=== PATIENT | female | born 1955 | race Caucasian/White ===

== ENCOUNTER 2019-06-10 12:45 | Outpatient (RCR) | payer MEDICARE, OTHER, SELFPAY ==
--- NOTE | 2019-04-22 17:00 | PT.OIE ---
Current Diagnoses Low back pain (04/22/19) Muscle weakness (generalized) (04/22/19) Rhabdomyolysis (04/22/19) Mixed incontinence (04/22/19) Visit Care Team Role Provider Type Shantell Rodriguez MD Primary Care Provider Physician Specialty: AUTO DAMAGE APPRAISER Address: [address] [place] [address], [id number] Email: [email or web address] Blanca Stoddard Attending Provider Non-Staff Specialty: General Surgery Address: [address] [place] [address], [facility] [address], [place], [address] Email: Physical Therapy Initial Evaluation PT-OP-A Visit Information Start: 04/15/19 08:14 Freq: Status: Active Protocol: Document 04/22/19 12:47 LRN (Rec: 04/22/19 13:43 LRN [id number]) Out-Patient Physical Therapy Visit Information Visit Information Visit Type Initial Evaluation Visit Start Time 12:47 Visit Stop Time 13:43 Total Visit Minutes 56 Visit Number 1 Number of ULTRASOUND SUPERVISOR Visits 0 Evaluation Information Evaluation Date 04/22/19 Precautions Precautions Kidney transplant - 2000. 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 PT-OP-B Current Condition Start: 04/15/19 08:14 Freq: Status: Active Protocol: Document 04/22/19 12:47 LRN (Rec: 04/22/19 13:43 LRN [id number]) Current Condition History of Current Condition Onset Date 5 yrs ago. Current Complaints Having urinary and bowel incontinence. History of Current Condition Urinary leakage with sneezing or coughing or with an urge. Bowel incontinence when stomach is upset and having diarrhea. Urinary leakage with sneezing and can't stop once urine starts to flow. Prior Treatments and Tests Kidney transplant. Taking Cholestryramine for diahrrea a little bit 1x/day. Future Testing and Treatments Planned Rectal surgery. Developmental History Developmental History Bladder surgery 2010 for prolapse, [facility] by Dr. Beltrán. Had no mesh, uterus removed and tucked in the bladder to protect kidney transplant. Has had intermittent diarrhea and constipation since. will have colonoscopy and will follow up with Dr. Stoddard to decide if going to have rectal surgery. Pt [place] 3, Parity 2. Both deliveries with use of forceps and episiotomy. Treatment Goals Patient/Caregiver Goals Pt goal is to improve bowel and urinary continence. Pt goal is to lift rectum to avoid surgery. Prior Functional Status Baseline Function- ADL's Independent Baseline Function- Mobility Independent Baseline Function- Work/School Not working due to incontinence. 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 Current Functional Impairments (Reported) Functional Limitations- ADL's Can't stand a long time. Carrying laundry basket has a little urinary incontinence and prolapse of rectum. Bulging discs limits sitting and gardening. Personal Factors Other Personal Factors That May Effect Per pt report: Therapy/Recovery Lives [place] with spouse. Has had liver transplant with liver located in R lower abdominal quadrant. Bowel dysfunction with intermittent diarrhea onset. 2 bulging discs in lumbar region PT-OP-C Subjective Start: 04/15/19 08:14 Freq: Status: Active Protocol: Document 04/22/19 12:47 LRN (Rec: 04/25/19 08:40 LRN [id number]) Patient Questionnaires Pelvic Pain and Urgency/Frequency Patient Symptom Scale Pelvic Pain Score 23 PT-OP-F Manual Assessment Start: 04/22/19 12:54 Freq: Status: Active Protocol: Document 04/22/19 12:47 LRN (Rec: 04/22/19 18:32 LRN [id number]) Manual Assessments Soft Tissue Assessment Soft Tissue Mobility Assessment Increased tone of Perineal body. PT-OP-I Pelvic Floor Start: 04/22/19 12:54 Freq: Status: Active Protocol: Document 04/22/19 12:47 LRN (Rec: 04/22/19 18:25 LRN [id number]) Pelvic Floor Assessment Urine Pelvic Floor Surgery No Urinary Symptoms Urge Sensation,Prolapse Other Urinary Symptoms Urinary incontinence Leakage Cause Cough,Sneeze,Urge Voiding Frequency 5 Nocturia 4 Urine Pad Type Depends Bowel Bowel Surgery No Bowel Symptoms Constipation,Fecal Leakage, Uncontrolled Flatulence Other Bowel Symptoms Diarrhea Pelvic Clock Pelvic Clock 12-3 Tenderness,Tightness Pelvic Clock 3-6 Tenderness,Tightness Pelvic Clock 6-9 Tenderness Pelvic Clock 9-12 Tenderness Pelvic Clock Other 12-6 O'Clock tender superficially 6-12 O'Clock tender deep. Inter-Rectal Assessment Contraction noted, closure of sphincter. Prolapse Cystocele Grade 1 Rectocele Grade 1 Perineal Descent Resting Present Bearing Present Contraction Ability Voluntary Contraction Weak Manual Muscle Testing Left 1 Manual Muscle Testing Right 1 Manual Muscle Testing Anterior 0 Manual Muscle Testing Posterior 1 Muscle Endurance (Seconds) 1 Comments Pelvic Floor Comments 10 weak Quick contractions felt in the posterior PF region only. PT-OP-J Posture/Palpation/Skin Start: 04/15/19 08:14 Freq: Status: Active Protocol: Document 04/22/19 12:47 LRN (Rec: 04/22/19 18:32 LRN [id number]) Posture Evaluation Position Standing Evaluation View All positions Head/C-Spine Posture Forward Head L-Spine Posture Increased Lordosis Scapula Posture (L) Elevated Pelvis Posture Anteriorly Tilted Weight Distribution Balanced Knee Posture (L) Genu Recurvatum,(R) Genu Recurvatum Palpation Assessment Location Leg length Longsit Palpation Location Equal leg lengths Leg length Supine Palpation Location L leg long Prone ASIS Palpation Location Low Left and outflared Standing ASIS Palpation Location Low Left Standing PSIS Palpation Location Low left PT-OP-K Range of Motion Start: 04/15/19 08:14 Freq: Status: Active Protocol: Document 04/22/19 12:47 LRN (Rec: 04/22/19 18:32 LRN [id number]) Lumbar Spine Range of Motion Lumbar Spine Active Degrees Testing Position Standing Flexion 75 Extension 0 PT-OP-M Strength Start: 04/15/19 08:14 Freq: Status: Active Protocol: Document 04/22/19 12:47 LRN (Rec: 04/22/19 18:32 LRN [id number]) Hip Strength Hip Manual Muscle Testing Right External Rotation 3+ Fair+ Internal Rotation 3 Fair Left External Rotation 3 Fair Internal Rotation 3 Fair PT-OP-Q Treatments Start: 04/15/19 08:14 Freq: Status: Active Protocol: Document 04/22/19 12:47 LRN (Rec: 04/22/19 18:17 LRN [id number]) Self-Care/Home Management Treatment Education Patient Education Home Exercise Program Other Education Pt educated in Bladder Diary to complete and handouts issued. Activities Self-Care/Home Management Activities Issued & reviewed HEP: Kegels: Quick Flicks, Long Holds & Aggravators. PT-OP-T Assessment and Plan Start: 04/15/19 08:14 Freq: Status: Active Protocol: Document 04/22/19 12:47 LRN (Rec: 04/22/19 13:43 LRN [id number]) Physical Therapy Assessment Goals Three Impairment Posterior PF weakness Short Term Goal (STG) Improve [place] Stool Scale more consistently to a 4. STG Duration 06/02/19 Fpc Goal (LTG) Pt will be able to avoid fecal incontinence by improving bowel function and maintaining continence until reaching bathroom. LTG Duration 08/20/19 Two Impairment Anterior PF weakness Short Term Goal (STG) Improve anterior PF strength to 2/5 with pt able to reach the bathroom without leaking. STG Duration 06/02/19 Public Relations Professional Goal (LTG) Improve anterior and lateral wall PF strength to 3/5 with pt able to avoid urinary leaking with a strong cough or sneeze. LTG Duration 08/20/19 One Impairment Lacks independent self care HEP. Public Relations Professional Goal (LTG) Pt will be independent in a self care HEP. Pt goal is to improve bowel and urinary continence. Pt goal is to lift rectum to avoid surgery. LTG Duration 08/20/19 Assessment Summary Assessment Pt presents with signs and symptoms of mixed urinary incontinence and fecal incontinence due to weakness of the PF and soft tissue tightness and tenderness of 12 -6 of the PF clock. In supine she appears to have a grade I cystocele and rectocele. Her symptoms of intermittent diarrhea> constipation cycle is hindering her ability to remain continent. I am hopeful that with PF strengthening and start of a bowel management program her level of fecal incontinence will improve. Additionally, improvement in her bowels will likely help her with her urinary continence. It is expected that due to the chronicity of her condition, her diagnosis of rhabdomyolysis and being s/p kidney transplant, her rehabilitation program may be quite extended. I believe the pt will benefit from skilled physical therapy to improve her urinary and fecal incontinence. The pt may need to be started on therapy 2x/ week to address her soft tissue tightness of the PF and her back pain, but if the pt prefers we can proceed 1x/week on a more self care, progressive home program. Physical Therapy Plan Frequency and Duration Frequency of Treatment 2x/Week Plan of Care Start Date 04/22/19 Plan of Care End Date 08/20/19 Therapeutic Interventions Therapeutic Interventions Home Exercise Program,Joint Mobilizations,Manual Therapy, Neuromuscular Re-education, Patient/Caregiver Education, Self-Care/Home Management,Soft Tissue Mobilization, Therapeutic Exercises Modalities Biofeedback,Cold Pack/Ice Massage,Electric Stimulation, Hot Packs Next Visit Focus/Plan Next Note Type Treatment Note Next Visit Plan Assess hip mobility, core strength. Review Bladder Diary and discuss/make recommendations as appropriate . Initiate proper PF strengthening (in isolation of accessory muscles and for drawing in motion). Assess pt ability to deep breath. Educate pt in stool chart and initiate bowel program. Discuss PF internal work and initiate if pt agreeable. Address proper body mechanics for ADLs.
--- NOTE | 2019-04-22 17:00 | PT.OPPOC ---
Physical, Occupational & Speech Therapy At [facility] Current Diagnoses Low back pain (04/22/19) Muscle weakness (generalized) (04/22/19) Rhabdomyolysis (04/22/19) Mixed incontinence (04/22/19) Visit Care Team Role Provider Type Shantell Rodriguez MD Primary Care Provider Physician Specialty: MANPOWER DEVELOPMENT ADVISOR Address: [address] [place] [address], [address] Email: [email or web address] Blanca Stoddard Attending Provider Non-Staff Specialty: General Surgery Address: [address] [place] [address], [facility] [address], [address] Email: Plan Of Care PT-OP-T Assessment and Plan Start: 04/15/19 08:14 Freq: Status: Active Protocol: Document 04/22/19 12:47 LRN (Rec: 04/22/19 13:43 LRN [id number]) Physical Therapy Assessment Assessment Summary Assessment Pt presents with signs and symptoms of mixed urinary incontinence and fecal incontinence due to weakness of the PF and soft tissue tightness and tenderness of 12 -6 of the PF clock. In supine she appears to have a grade I cystocele and rectocele. Her symptoms of intermittent diarrhea> constipation cycle is hindering her ability to remain continent. I am hopeful that with PF strengthening and start of a bowel management program her level of fecal incontinence will improve. Additionally, improvement in her bowels will likely help her with her urinary continence. It is expected that due to the chronicity of her condition, her diagnosis of rhabdomyolysis and being s/p kidney transplant, her rehabilitation program may be quite extended. I believe the pt will benefit from skilled physical therapy to improve her urinary and fecal incontinence. The pt may need to be started on therapy 2x/ week to address her soft tissue tightness of the PF and her back pain, but if the pt prefers we can proceed 1x/week on a more self care, progressive home program. Physical Therapy Plan Frequency and Duration Frequency of Treatment 2x/Week Plan of Care Start Date 04/22/19 Plan of Care End Date 05/23/20 Therapeutic Interventions Therapeutic Interventions Home Exercise Program,Joint Mobilizations,Manual Therapy, Neuromuscular Re-education, Patient/Caregiver Education, Self-Care/Home Management,Soft Tissue Mobilization, Therapeutic Exercises Modalities Biofeedback,Cold Pack/Ice Massage,Electric Stimulation, Hot Packs Next Visit Focus/Plan Next Note Type Treatment Note Next Visit Plan Assess hip mobility, core strength. Review Bladder Diary and discuss/make recommendations as appropriate . Initiate proper PF strengthening (in isolation of accessory muscles and for drawing in motion). Assess pt ability to deep breath. Educate pt in stool chart and initiate bowel program. Discuss PF internal work and initiate if pt agreeable. Address proper body mechanics for ADLs. Plan of Care Dates Plan of Care Start Date 04/22/19 Plan of Care End Date 08/20/19 Electronically Signed by: Jackie Dahl, PT 04/25/19 0844 Please Sign and Return: I have reviewed this Plan of Care and certify that the skilled therapy services above are required to meet the patient?s needs. Physician Signature Date Printed Name and Credentials Clinical Instructor Signature Printed Name and Credentials
--- NOTE | 2019-04-22 17:00 | PT.OPPOC ---
Physical, Occupational & Speech Therapy At [facility] Current Diagnoses Low back pain (04/22/19) Muscle weakness (generalized) (04/22/19) Rhabdomyolysis (04/22/19) Mixed incontinence (04/22/19) Visit Care Team Role Provider Type Shantell Rodriguez MD Primary Care Provider Physician Specialty: CRISIS NURSE Address: [address] [place] [address], [address] Email: [email or web address] Blanca Stoddard Attending Provider Non-Staff Specialty: General Surgery Address: [address] [place] [address], [address], [address] Email: Plan Of Care PT-OP-T Assessment and Plan Start: 04/15/19 08:14 Freq: Status: Active Protocol: Document 04/22/19 12:47 LRN (Rec: 04/22/19 13:43 LRN [id number]) Physical Therapy Assessment Goals Three Impairment Posterior PF weakness Short Term Goal (STG) Improve [place] Stool Scale more consistently to a 4. STG Duration 06/02/19 Longterm Goal (LTG) Pt will be able to avoid fecal incontinence by improving bowel function and maintaining continence until reaching bathroom. LTG Duration 08/20/19 Two Impairment Anterior PF weakness Short Term Goal (STG) Improve anterior PF strength to 2/5 with pt able to reach the bathroom without leaking. STG Duration 06/02/19 Longterm Goal (LTG) Improve anterior and lateral wall PF strength to 3/5 with pt able to avoid urinary leaking with a strong cough or sneeze. LTG Duration 08/20/19 One Impairment Lacks independent self care HEP. Tank Builder Supervisor Goal (LTG) Pt will be independent in a self care HEP. Pt goal is to improve bowel and urinary continence. Pt goal is to lift rectum to avoid surgery. LTG Duration 08/20/19 Assessment Summary Assessment Pt presents with signs and symptoms of mixed urinary incontinence and fecal incontinence due to weakness of the PF and soft tissue tightness and tenderness of 12 -6 of the PF clock. In supine she appears to have a grade I cystocele and rectocele. Her symptoms of intermittent diarrhea> constipation cycle is hindering her ability to remain continent. I am hopeful that with PF strengthening and start of a bowel management program her level of fecal incontinence will improve. Additionally, improvement in her bowels will likely help her with her urinary continence. It is expected that due to the chronicity of her condition, her diagnosis of rhabdomyolysis and being s/p kidney transplant, her rehabilitation program may be quite extended. I believe the pt will benefit from skilled physical therapy to improve her urinary and fecal incontinence. The pt may need to be started on therapy 2x/ week to address her soft tissue tightness of the PF and her back pain, but if the pt prefers we can proceed 1x/week on a more self care, progressive home program. Physical Therapy Plan Frequency and Duration Frequency of Treatment 2x/Week Plan of Care Start Date 04/22/19 Plan of Care End Date 08/20/19 Therapeutic Interventions Therapeutic Interventions Home Exercise Program,Joint Mobilizations,Manual Therapy, Neuromuscular Re-education, Patient/Caregiver Education, Self-Care/Home Management,Soft Tissue Mobilization, Therapeutic Exercises Modalities Biofeedback,Cold Pack/Ice Massage,Electric Stimulation, Hot Packs Next Visit Focus/Plan Next Note Type Treatment Note Next Visit Plan Assess hip mobility, core strength. Review Bladder Diary and discuss/make recommendations as appropriate . Initiate proper PF strengthening (in isolation of accessory muscles and for drawing in motion). Assess pt ability to deep breath. Educate pt in stool chart and initiate bowel program. Discuss PF internal work and initiate if pt agreeable. Address proper body mechanics for ADLs. Plan of Care Dates Plan of Care Start Date 04/22/19 Plan of Care End Date 08/20/19 Electronically Signed by: Jackie Dahl, PT 04/25/19 1994 Please Sign and Return: I have reviewed this Plan of Care and certify that the skilled therapy services above are required to meet the patient?s needs. Physician Signature Date Printed Name and Credentials Clinical Instructor Signature Printed Name and Credentials
--- NOTE | 2019-04-22 17:00 | PT.OIE ---
Current Diagnoses Low back pain (04/22/19) Muscle weakness (generalized) (04/22/19) Rhabdomyolysis (04/22/19) Mixed incontinence (04/22/19) Visit Care Team Role Provider Type Shantell Rodriguez MD Primary Care Provider Physician Specialty: RECHECKER Address: [address] [place] [address], [id number] Email: [email or web address] Stoddard Attending Provider Non-Staff Specialty: General Surgery Address: [address] [place] [address], [facility] [address], [place], [address] Email: Physical Therapy Initial Evaluation PT-OP-A Visit Information Start: 04/15/19 08:14 Freq: Status: Active Protocol: Document 04/22/19 12:47 LRN (Rec: 04/22/19 13:43 LRN [id number]) Out-Patient Physical Therapy Visit Information Visit Information Visit Type Initial Evaluation Visit Start Time 12:47 Visit Stop Time 13:43 Total Visit Minutes 56 Visit Number 1 Number of WREATH MAKER Visits 0 Evaluation Information Evaluation Date 04/22/19 Precautions Precautions Kidney transplant - 2000. 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 PT-OP-B Current Condition Start: 04/15/19 08:14 Freq: Status: Active Protocol: Document 04/22/19 12:47 LRN (Rec: 04/22/19 13:43 LRN [id number]) Current Condition History of Current Condition Onset Date 5 yrs ago. Current Complaints Having urinary and bowel incontinence. History of Current Condition Urinary leakage with sneezing or coughing or with an urge. Bowel incontinence when stomach is upset and having diarrhea. Urinary leakage with sneezing and can't stop once urine starts to flow. Prior Treatments and Tests Kidney transplant. Taking Cholestryramine for diahrrea a little bit 1x/day. Future Testing and Treatments Planned Rectal surgery. Developmental History Developmental History Bladder surgery 2010 for prolapse, U[facility] by Dr. Beltrán. Had no mesh, uterus removed and tucked in the bladder to protect kidney transplant. Has had intermittent diarrhea and constipation since. will have colonoscopy and will follow up with Dr. Stoddard to decide if going to have rectal surgery. Pt [place] 3, [place] 2. Both deliveries with use of forceps and episiotomy. Treatment Goals Patient/Caregiver Goals Pt goal is to improve bowel and urinary continence. Pt goal is to lift rectum to avoid surgery. Prior Functional Status Baseline Function- ADL's Independent Baseline Function- Mobility Independent Baseline Function- Work/School Not working due to incontinence. 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 Current Functional Impairments (Reported) Functional Limitations- ADL's Can't stand a long time. Carrying laundry basket has a little urinary incontinence and prolapse of rectum. Bulging discs limits sitting and gardening. Personal Factors Other Personal Factors That May Effect Per pt report: Therapy/Recovery Lives [place] with spouse. Has had liver transplant with liver located in R lower abdominal quadrant. Bowel dysfunction with intermittent diarrhea onset. 2 bulging discs in lumbar region PT-OP-C Subjective Start: 04/15/19 08:14 Freq: Status: Active Protocol: Document 04/22/19 12:47 LRN (Rec: 04/25/19 08:40 LRN [id number]) Patient Questionnaires Pelvic Pain and Urgency/Frequency Patient Symptom Scale Pelvic Pain Score 23 PT-OP-F Manual Assessment Start: 04/22/19 12:54 Freq: Status: Active Protocol: Document 04/22/19 12:47 LRN (Rec: 04/22/19 18:32 LRN [id number]) Manual Assessments Soft Tissue Assessment Soft Tissue Mobility Assessment Increased tone of Perineal body. PT-OP-I Pelvic Floor Start: 04/22/19 12:54 Freq: Status: Active Protocol: Document 04/22/19 12:47 LRN (Rec: 04/22/19 18:25 LRN [id number]) Pelvic Floor Assessment Urine Pelvic Floor Surgery No Urinary Symptoms Urge Sensation,Prolapse Other Urinary Symptoms Urinary incontinence Leakage Cause Cough,Sneeze,Urge Voiding Frequency 5 Nocturia 4 Urine Pad Type Depends Bowel Bowel Surgery No Bowel Symptoms Constipation,Fecal Leakage, Uncontrolled Flatulence Other Bowel Symptoms Diarrhea Pelvic Clock Pelvic Clock 12-3 Tenderness,Tightness Pelvic Clock 3-6 Tenderness,Tightness Pelvic Clock 6-9 Tenderness Pelvic Clock 9-12 Tenderness Pelvic Clock Other 12-6 O'Clock tender superficially 6-12 O'Clock tender deep. Inter-Rectal Assessment Contraction noted, closure of sphincter. Prolapse Cystocele Grade 1 Rectocele Grade 1 Perineal Descent Resting Present Bearing Present Contraction Ability Voluntary Contraction Weak Manual Muscle Testing Left 1 Manual Muscle Testing Right 1 Manual Muscle Testing Anterior 0 Manual Muscle Testing Posterior 1 Muscle Endurance (Seconds) 1 Comments Pelvic Floor Comments 10 weak Quick contractions felt in the posterior PF region only. PT-OP-J Posture/Palpation/Skin Start: 04/15/19 08:14 Freq: Status: Active Protocol: Document 04/22/19 12:47 LRN (Rec: 04/22/19 18:32 LRN [id number]) Posture Evaluation Position Standing Evaluation View All positions Head/C-Spine Posture Forward Head L-Spine Posture Increased Lordosis Scapula Posture (L) Elevated Pelvis Posture Anteriorly Tilted Weight Distribution Balanced Knee Posture (L) Genu Recurvatum,(R) Genu Recurvatum Palpation Assessment Location Leg length Longsit Palpation Location Equal leg lengths Leg length Supine Palpation Location L leg long Prone ASIS Palpation Location Low Left and outflared Standing ASIS Palpation Location Low Left Standing PSIS Palpation Location Low left PT-OP-K Range of Motion Start: 04/15/19 08:14 Freq: Status: Active Protocol: Document 04/22/19 12:47 LRN (Rec: 04/22/19 18:32 LRN [id number]) Lumbar Spine Range of Motion Lumbar Spine Active Degrees Testing Position Standing Flexion 75 Extension 0 PT-OP-M Strength Start: 04/15/19 08:14 Freq: Status: Active Protocol: Document 04/22/19 12:47 LRN (Rec: 04/22/19 18:32 LRN [id number]) Hip Strength Hip Manual Muscle Testing Right External Rotation 3+ Fair+ Internal Rotation 3 Fair Left External Rotation 3 Fair Internal Rotation 3 Fair PT-OP-Q Treatments Start: 04/15/19 08:14 Freq: Status: Active Protocol: Document 04/22/19 12:47 LRN (Rec: 04/22/19 18:17 LRN [id number]) Self-Care/Home Management Treatment Education Patient Education Home Exercise Program Other Education Pt educated in Bladder Diary to complete and handouts issued. Activities Self-Care/Home Management Activities Issued & reviewed HEP: Kegels: Quick Flicks, Long Holds & Aggravators. PT-OP-T Assessment and Plan Start: 04/15/19 08:14 Freq: Status: Active Protocol: Document 04/22/19 12:47 LRN (Rec: 04/22/19 13:43 LRN [id number]) Physical Therapy Assessment Assessment Summary Assessment Pt presents with signs and symptoms of mixed urinary incontinence and fecal incontinence due to weakness of the PF and soft tissue tightness and tenderness of 12 -6 of the PF clock. In supine she appears to have a grade I cystocele and rectocele. Her symptoms of intermittent diarrhea> constipation cycle is hindering her ability to remain continent. I am hopeful that with PF strengthening and start of a bowel management program her level of fecal incontinence will improve. Additionally, improvement in her bowels will likely help her with her urinary continence. It is expected that due to the chronicity of her condition, her diagnosis of rhabdomyolysis and being s/p kidney transplant, her rehabilitation program may be quite extended. I believe the pt will benefit from skilled physical therapy to improve her urinary and fecal incontinence. The pt may need to be started on therapy 2x/ week to address her soft tissue tightness of the PF and her back pain, but if the pt prefers we can proceed 1x/week on a more self care, progressive home program. Physical Therapy Plan Frequency and Duration Frequency of Treatment 2x/Week Plan of Care Start Date 04/22/19 Plan of Care End Date 08/20/19 Therapeutic Interventions Therapeutic Interventions Home Exercise Program,Joint Mobilizations,Manual Therapy, Neuromuscular Re-education, Patient/Caregiver Education, Self-Care/Home Management,Soft Tissue Mobilization, Therapeutic Exercises Modalities Biofeedback,Cold Pack/Ice Massage,Electric Stimulation, Hot Packs Next Visit Focus/Plan Next Note Type Treatment Note Next Visit Plan Assess hip mobility, core strength. Review Bladder Diary and discuss/make recommendations as appropriate . Initiate proper PF strengthening (in isolation of accessory muscles and for drawing in motion). Assess pt ability to deep breath. Educate pt in stool chart and initiate bowel program. Discuss PF internal work and initiate if pt agreeable. Address proper body mechanics for ADLs.
--- NOTE | 2019-05-06 13:55 | PT.OTN ---
Current Diagnoses Low back pain (05/06/19) Muscle weakness (generalized) (05/06/19) Rhabdomyolysis (05/06/19) Mixed incontinence (05/06/19) Physical Therapy Treatment Note PT-OP-A Visit Information Start: 04/15/19 08:14 Freq: Status: Active Protocol: Document 05/06/19 12:48 LRN (Rec: 05/06/19 13:55 LRN [id number]) Out-Patient Physical Therapy Visit Information Visit Information Visit Type Treatment Note Visit Start Time 12:47 Visit Stop Time 13:37 Total Visit Minutes 50 Visit Number 2 Evaluation Information Evaluation Date 04/22/19 Precautions Precautions Kidney transplant - 2000. 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 PT-OP-B Current Condition Start: 04/15/19 08:14 Freq: Status: Active Protocol: Document 04/22/19 12:47 LRN (Rec: 04/22/19 13:43 LRN [id number]) Current Condition History of Current Condition Onset Date 5 yrs ago. Current Complaints Having urinary and bowel incontinence. History of Current Condition Urinary leakage with sneezing or coughing or with an urge. Bowel incontinence when stomach is upset and having diarrhea. Urinary leakage with sneezing and can't stop once urine starts to flow. Prior Treatments and Tests Kidney transplant. Taking Cholestryramine for diahrrea a little bit 1x/day. Future Testing and Treatments Planned Rectal surgery. Developmental History Developmental History Bladder surgery 2010 for prolapse, [facility] by Dr. Beltrán. Had no mesh, uterus removed and tucked in the bladder to protect kidney transplant. Has had intermittent diarrhea and constipation since. will have colonoscopy and will follow up with Dr. Stoddard to decide if going to have rectal surgery. Pt [place] 3, [place] 2. Both deliveries with use of forceps and episiotomy. Treatment Goals Patient/Caregiver Goals Pt goal is to improve bowel and urinary continence. Pt goal is to lift rectum to avoid surgery. Prior Functional Status Baseline Function- ADL's Independent Baseline Function- Mobility Independent Baseline Function- Work/School Not working due to incontinence. 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 Current Functional Impairments (Reported) Functional Limitations- ADL's Can't stand a long time. Carrying laundry basket has a little urinary incontinence and prolapse of rectum. Bulging discs limits sitting and gardening. Personal Factors Other Personal Factors That May Effect Per pt report: Therapy/Recovery Lives [place] with spouse. Has had liver transplant with liver located in R lower abdominal quadrant. Bowel dysfunction with intermittent diarrhea onset. 2 bulging discs in lumbar region PT-OP-C Subjective Start: 04/15/19 08:14 Freq: Status: Active Protocol: Document 05/06/19 12:48 LRN (Rec: 05/06/19 13:55 LRN [id number]) OP-PT Subjective Patient Comments Patient Comments No change. Did colonoscopy and found no polyops. PT-OP-F Manual Assessment Start: 04/22/19 12:54 Freq: Status: Active Protocol: Document 04/22/19 12:47 LRN (Rec: 04/22/19 18:32 LRN [id number]) Manual Assessments Soft Tissue Assessment Soft Tissue Mobility Assessment Increased tone of Perineal body. PT-OP-I Pelvic Floor Start: 04/22/19 12:54 Freq: Status: Active Protocol: Document 04/22/19 12:47 LRN (Rec: 04/22/19 18:25 LRN [id number]) Pelvic Floor Assessment Urine Pelvic Floor Surgery No Urinary Symptoms Urge Sensation,Prolapse Other Urinary Symptoms Urinary incontinence Leakage Cause Cough,Sneeze,Urge Voiding Frequency 5 Nocturia 4 Urine Pad Type Depends Bowel Bowel Surgery No Bowel Symptoms Constipation,Fecal Leakage, Uncontrolled Flatulence Other Bowel Symptoms Diarrhea Pelvic Clock Pelvic Clock 12-3 Tenderness,Tightness Pelvic Clock 3-6 Tenderness,Tightness Pelvic Clock 6-9 Tenderness Pelvic Clock 9-12 Tenderness Pelvic Clock Other 12-6 O'Clock tender superficially 6-12 O'Clock tender deep. Inter-Rectal Assessment Contraction noted, closure of sphincter. Prolapse Cystocele Grade 1 Rectocele Grade 1 Perineal Descent Resting Present Bearing Present Contraction Ability Voluntary Contraction Weak Manual Muscle Testing Left 1 Manual Muscle Testing Right 1 Manual Muscle Testing Anterior 0 Manual Muscle Testing Posterior 1 Muscle Endurance (Seconds) 1 Comments Pelvic Floor Comments 10 weak Quick contractions felt in the posterior PF region only. PT-OP-J Posture/Palpation/Skin Start: 04/15/19 08:14 Freq: Status: Active Protocol: Document 04/22/19 12:47 LRN (Rec: 04/22/19 18:32 LRN [id number]) Posture Evaluation Position Standing Evaluation View All positions Head/C-Spine Posture Forward Head L-Spine Posture Increased Lordosis Scapula Posture (L) Elevated Pelvis Posture Anteriorly Tilted Weight Distribution Balanced Knee Posture (L) Genu Recurvatum,(R) Genu Recurvatum Palpation Assessment Location Leg length Longsit Palpation Location Equal leg lengths Leg length Supine Palpation Location L leg long Prone ASIS Palpation Location Low Left and outflared Standing ASIS Palpation Location Low Left Standing PSIS Palpation Location Low left PT-OP-K Range of Motion Start: 04/15/19 08:14 Freq: Status: Active Protocol: Document 05/06/19 12:48 LRN (Rec: 05/06/19 13:55 LRN [id number]) Hip Goniometric Range of Motion Hip Right Passive Testing Position Supine Flexion w/Knee Flexed 122 Straight Leg Raise 80 Abduction 60 Internal Rotation 45 External Rotation 65 Left Passive Testing Position Supine Flexion w/Knee Flexed 125 Straight Leg Raise 85 Abduction 55 Internal Rotation 40 External Rotation 65 PT-OP-M Strength Start: 04/15/19 08:14 Freq: Status: Active Protocol: Document 05/06/19 12:48 LRN (Rec: 05/06/19 13:55 LRN [id number]) Trunk Strength Trunk Manual Muscle Testing Testing Position Sitting Flexion 3+ Fair+ Extension 3+ Fair+ Rotation Left 3 Fair Rotation Right 5 Normal Lateral Flexion Left 2+ Poor+ Lateral Flexion Right 2+ Poor+ PT-OP-Q Treatments Start: 04/15/19 08:14 Freq: Status: Active Protocol: Document 05/06/19 12:48 LRN (Rec: 05/06/19 13:55 LRN [id number]) Therapeutic Exercises Supine Exercises Hip PROM Supine Exercise Name Hip PROM Comments ROM msmts taken after brief stretch of each x 1. Diaphragmatic Breathing Supine Exercise Name Diaphragmatic Breathing Training Reps/Minutes 5' Comments Pt initially with 3 sec inhale /exhale, after practice 3 inhale, 6 exhale. Lateral hip stretch Supine Exercise Name Lateral hip stretch Side bilateral Reps/Minutes 5' Comments Extra time due to training. ~60 stretch each Fig 4 stretch Supine Exercise Name Fig 4 stretch, L > R Side bilateral Reps/Minutes 4' Comments Extra time due to training. ~ 60 stretch each Sitting Exercises Trunk ARROM Sitting Exercise Name Flex, Ext, SB, Rot Comments MMT taken Self-Care/Home Management Treatment Education Patient Education Home Exercise Program Other Education *Reviewed Bladder Diary and made recommendations to increasing water intake especially in the AM, increasing fiber, and decreasing fluids/bladder irriatants before bedtime. *Educated pt in pelvic anatomy and relation of organs in the pelvic cavity. Discussed possible effects organs have on each other. Activities Self-Care/Home Management Activities I/S pt in Deep Breathing to increase inhale to 6 secs. Handouts issued & reviewed for : Pelvic organs in Pelvis, Diaphragmatic Breathing, & Foods to be avoided. PT-OP-T Assessment and Plan Start: 04/15/19 08:14 Freq: Status: Active Protocol: Document 05/06/19 12:48 LRN (Rec: 05/06/19 13:55 LRN [id number]) Physical Therapy Assessment Goals Three Impairment Posterior PF weakness Short Term Goal (STG) Improve [place] Stool Scale more consistently to a 4. STG Duration 06/02/19 Residential Goal (LTG) Pt will be able to avoid fecal incontinence by improving bowel function and maintaining continence until reaching bathroom. LTG Duration 08/20/19 Two Impairment Anterior PF weakness Short Term Goal (STG) Improve anterior PF strength to 2/5 with pt able to reach the bathroom without leaking. STG Duration 06/02/19 Senior Trial Attorney Goal (LTG) Improve anterior and lateral wall PF strength to 3/5 with pt able to avoid urinary leaking with a strong cough or sneeze. LTG Duration 08/20/19 One Impairment Lacks independent self care HEP. Senior Trial Attorney Goal (LTG) Pt will be independent in a self care HEP. Pt goal is to improve bowel and urinary continence. Pt goal is to lift rectum to avoid surgery. LTG Duration 08/20/19 (05/06/19: Initiated) Assessment Summary Assessment Pt with mixed urinary incontinence and fecal incontinence. She did one day of bladder diary. She showed poor fluid intake, as much coffee and soda as water and not enough fluids for her 84#. She has decreased hip mobility of rotators and adductors. SLR is 80-85 deg's with pain in anterior thigh R side (possibly L2, L3 n. root ) and Hamstrings L side. Pt deep breathing is too quick, good movement of abdomen. Physical Therapy Plan Frequency and Duration Frequency of Treatment 2x/Week Plan of Care Start Date 04/22/19 Plan of Care End Date 08/20/19 Next Visit Focus/Plan Next Note Type Treatment Note Next Visit Plan Review Bladder Diary 2nd time and discuss/make recommendations as appropriate . Review deep breathing and I /S home exs of fig 4 & lateral hip stretch. Initiate proper PF strengthening (in isolation of accessory muscles and for drawing in motion). Educate pt in stool chart and initiate bowel program. Discuss PF internal work and initiate if pt agreeable. Address proper body mechanics for ADLs.
--- NOTE | 2019-05-13 16:54 | PT.OTN ---
Current Diagnoses Low back pain (05/13/19) Muscle weakness (generalized) (05/13/19) Rhabdomyolysis (05/13/19) Mixed incontinence (05/13/19) Physical Therapy Treatment Note PT-OP-A Visit Information Start: 04/15/19 08:14 Freq: Status: Active Protocol: Document 05/13/19 12:52 LRN (Rec: 05/13/19 13:34 LRN [id number]) Out-Patient Physical Therapy Visit Information Visit Information Visit Type Treatment Note Visit Start Time 12:53 Visit Stop Time 13:32 Total Visit Minutes 39 Visit Number 3 Evaluation Information Evaluation Date 04/22/19 Precautions Precautions Kidney transplant - 2000. 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 PT-OP-B Current Condition Start: 04/15/19 08:14 Freq: Status: Active Protocol: Document 04/22/19 12:47 LRN (Rec: 04/22/19 13:43 LRN [id number]) Current Condition History of Current Condition Onset Date 5 yrs ago. Current Complaints Having urinary and bowel incontinence. History of Current Condition Urinary leakage with sneezing or coughing or with an urge. Bowel incontinence when stomach is upset and having diarrhea. Urinary leakage with sneezing and can't stop once urine starts to flow. Prior Treatments and Tests Kidney transplant. Taking Cholestryramine for diahrrea a little bit 1x/day. Future Testing and Treatments Planned Rectal surgery. Developmental History Developmental History Bladder surgery 2010 for prolapse, [facility] by Dr. Beltrán. Had no mesh, uterus removed and tucked in the bladder to protect kidney transplant. Has had intermittent diarrhea and constipation since. will have colonoscopy and will follow up with Dr. Stoddard to decide if going to have rectal surgery. Pt [place] 3, [place] 2. Both deliveries with use of forceps and episiotomy. Treatment Goals Patient/Caregiver Goals Pt goal is to improve bowel and urinary continence. Pt goal is to lift rectum to avoid surgery. Prior Functional Status Baseline Function- ADL's Independent Baseline Function- Mobility Independent Baseline Function- Work/School Not working due to incontinence. 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 Current Functional Impairments (Reported) Functional Limitations- ADL's Can't stand a long time. Carrying laundry basket has a little urinary incontinence and prolapse of rectum. Bulging discs limits sitting and gardening. Personal Factors Other Personal Factors That May Effect Per pt report: Therapy/Recovery Lives [place] with spouse. Has had liver transplant with liver located in R lower abdominal quadrant. Bowel dysfunction with intermittent diarrhea onset. 2 bulging discs in lumbar region PT-OP-C Subjective Start: 04/15/19 08:14 Freq: Status: Active Protocol: Document 05/13/19 12:52 LRN (Rec: 05/13/19 13:34 LRN [id number]) OP-PT Subjective Patient Comments Patient Comments Spoke with Dr. Stoddard (in [facility]) about waiting on having rectal surgery unitl after trying PT . States yesterday had fecal incontinence x 1, felt an urge , but couldn't control. PT-OP-F Manual Assessment Start: 04/22/19 12:54 Freq: Status: Active Protocol: Document 04/22/19 12:47 LRN (Rec: 04/22/19 18:32 LRN [id number]) Manual Assessments Soft Tissue Assessment Soft Tissue Mobility Assessment Increased tone of Perineal body. PT-OP-I Pelvic Floor Start: 04/22/19 12:54 Freq: Status: Active Protocol: Document 04/22/19 12:47 LRN (Rec: 04/22/19 18:25 LRN [id number]) Pelvic Floor Assessment Urine Pelvic Floor Surgery No Urinary Symptoms Urge Sensation,Prolapse Other Urinary Symptoms Urinary incontinence Leakage Cause Cough,Sneeze,Urge Voiding Frequency 5 Nocturia 4 Urine Pad Type Depends Bowel Bowel Surgery No Bowel Symptoms Constipation,Fecal Leakage, Uncontrolled Flatulence Other Bowel Symptoms Diarrhea Pelvic Clock Pelvic Clock 12-3 Tenderness,Tightness Pelvic Clock 3-6 Tenderness,Tightness Pelvic Clock 6-9 Tenderness Pelvic Clock 9-12 Tenderness Pelvic Clock Other 12-6 O'Clock tender superficially 6-12 O'Clock tender deep. Inter-Rectal Assessment Contraction noted, closure of sphincter. Prolapse Cystocele Grade 1 Rectocele Grade 1 Perineal Descent Resting Present Bearing Present Contraction Ability Voluntary Contraction Weak Manual Muscle Testing Left 1 Manual Muscle Testing Right 1 Manual Muscle Testing Anterior 0 Manual Muscle Testing Posterior 1 Muscle Endurance (Seconds) 1 Comments Pelvic Floor Comments 10 weak Quick contractions felt in the posterior PF region only. PT-OP-J Posture/Palpation/Skin Start: 04/15/19 08:14 Freq: Status: Active Protocol: Document 04/22/19 12:47 LRN (Rec: 04/22/19 18:32 LRN [id number]) Posture Evaluation Position Standing Evaluation View All positions Head/C-Spine Posture Forward Head L-Spine Posture Increased Lordosis Scapula Posture (L) Elevated Pelvis Posture Anteriorly Tilted Weight Distribution Balanced Knee Posture (L) Genu Recurvatum,(R) Genu Recurvatum Palpation Assessment Location Leg length Longsit Palpation Location Equal leg lengths Leg length Supine Palpation Location L leg long Prone ASIS Palpation Location Low Left and outflared Standing ASIS Palpation Location Low Left Standing PSIS Palpation Location Low left PT-OP-K Range of Motion Start: 04/15/19 08:14 Freq: Status: Active Protocol: Document 05/06/19 12:48 LRN (Rec: 05/06/19 13:55 LRN [id number]) Hip Goniometric Range of Motion Hip Right Passive Testing Position Supine Flexion w/Knee Flexed 122 Straight Leg Raise 80 Abduction 60 Internal Rotation 45 External Rotation 65 Left Passive Testing Position Supine Flexion w/Knee Flexed 125 Straight Leg Raise 85 Abduction 55 Internal Rotation 40 External Rotation 65 PT-OP-M Strength Start: 04/15/19 08:14 Freq: Status: Active Protocol: Document 05/06/19 12:48 LRN (Rec: 05/06/19 13:55 LRN [id number]) Trunk Strength Trunk Manual Muscle Testing Testing Position Sitting Flexion 3+ Fair+ Extension 3+ Fair+ Rotation Left 3 Fair Rotation Right 5 Normal Lateral Flexion Left 2+ Poor+ Lateral Flexion Right 2+ Poor+ PT-OP-Q Treatments Start: 04/15/19 08:14 Freq: Status: Active Protocol: Document 05/13/19 12:52 LRN (Rec: 05/13/19 13:34 LRN [id number]) Therapeutic Exercises Supine Exercises Bridge Supine Exercise Name Bridge w/PF contraction Reps/Minutes 10x Comments I/S for long hold 10 & Quick flicks x 10 PF contraction Supine Exercise Name PF contraction sup & on folded pillow Reps/Minutes 10x LE Roll in/out with Deep Breathing Supine Exercise Name LE Roll in/out w/Deep Breathing Reps/Minutes 7' Comments Training. Diaphragmatic Breathing Supine Exercise Name Diaphragmatic Breathing Reps/Minutes 5' Comments 4 inhale, 6 exhale. Lateral hip stretch Supine Exercise Name Lateral hip stretch Side bilateral Reps/Minutes 3' Comments 60 stretch each Fig 4 stretch Supine Exercise Name Fig 4 stretch, L x 2, R x 1 Side bilateral Reps/Minutes 3' Comments 60 stretch each Self-Care/Home Management Treatment Education Patient Education Home Exercise Program Other Education *Educated pt in desired stool consistency of type 3 or 4 on the stool chart. *Reviewed Bladder Diary and noted an increase in voiding withcaffeine intake, recommended increasing fiber. *Re-educated pt in pelvic anatomy and relation of organs in the pelvic cavity. Discussed effects organs have on each other and piston affect of abdominal cavity. Activities Self-Care/Home Management Activities Issued & Reviewed HEP: LE Roll in/out with deep breathing. Written I/S for Bridge with PF contraction of long holds and quick flicks. & for pt to do voiding diary ( fecal and urine). PT-OP-T Assessment and Plan Start: 04/15/19 08:14 Freq: Status: Active Protocol: Document 05/13/19 12:52 LRN (Rec: 05/13/19 13:34 LRN [id number]) Physical Therapy Assessment Goals Three Impairment Posterior PF weakness Short Term Goal (STG) Improve [place] Stool Scale more consistently to a 4. STG Duration 06/02/19 (05/13/19: MET GOAL. Pt able to have type 4 stools with BM) Inventory Administrator Goal (LTG) Pt will be able to avoid fecal incontinence by improving bowel function and maintaining continence until reaching bathroom. LTG Duration 08/20/19 Two Impairment Anterior PF weakness Short Term Goal (STG) Improve anterior PF strength to 2/5 with pt able to reach the bathroom without leaking. STG Duration 06/02/19 Custodial Goal (LTG) Improve anterior and lateral wall PF strength to 3/5 with pt able to avoid urinary leaking with a strong cough or sneeze. LTG Duration 08/20/19 One Impairment Lacks independent self care HEP. Custodial Goal (LTG) Pt will be independent in a self care HEP. Pt goal is to improve bowel and urinary continence. Pt goal is to lift rectum to avoid surgery. LTG Duration 08/20/19 (05/13/19: Progressing ) Assessment Summary Assessment Pt is reporting improvement with less urinary and fecal incontinence. She only had one fecal incontinent onset this past week. She has increased her water consumption and had a normal stool type; therefore no diarrhea. Pt appears to be consistent with ex's. She does well with deep breathing and appeared to have a good understanding of LE Roll in/ out ex. Pt did one day of bladder diary this past week. Physical Therapy Plan Frequency and Duration Frequency of Treatment 2x/Week Plan of Care Start Date 04/22/19 Plan of Care End Date 08/20/19 Next Visit Focus/Plan Next Note Type Treatment Note Next Visit Plan Review Bladder Diary if pt has one and discuss/make recommendations as appropriate . Progress proper PF strengthening (in isolation of accessory muscles and for drawing in motion). Initiate bowel program. Discuss PF internal work and initiate if pt agreeable. Address proper body mechanics for ADLs.
--- NOTE | 2019-05-20 15:47 | PT.OTN ---
Current Diagnoses Low back pain (05/20/19) Muscle weakness (generalized) (05/20/19) Rhabdomyolysis (05/20/19) Mixed incontinence (05/20/19) Physical Therapy Treatment Note PT-OP-A Visit Information Start: 04/15/19 08:14 Freq: Status: Active Protocol: Document 05/20/19 13:33 LRN (Rec: 05/20/19 14:18 LRN [id number]) Out-Patient Physical Therapy Visit Information Visit Information Visit Type Treatment Note Visit Start Time 13:33 Visit Stop Time 14:14 Total Visit Minutes 41 Visit Number 4 Evaluation Information Evaluation Date 04/22/19 Precautions Precautions Kidney transplant - 2000. 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 PT-OP-B Current Condition Start: 04/15/19 08:14 Freq: Status: Active Protocol: Document 04/22/19 12:47 LRN (Rec: 04/22/19 13:43 LRN [id number]) Current Condition History of Current Condition Onset Date 5 yrs ago. Current Complaints Having urinary and bowel incontinence. History of Current Condition Urinary leakage with sneezing or coughing or with an urge. Bowel incontinence when stomach is upset and having diarrhea. Urinary leakage with sneezing and can't stop once urine starts to flow. Prior Treatments and Tests Kidney transplant. Taking Cholestryramine for diahrrea a little bit 1x/day. Future Testing and Treatments Planned Rectal surgery. Developmental History Developmental History Bladder surgery 2010 for prolapse, [facility] by Dr. Beltrán. Had no mesh, uterus removed and tucked in the bladder to protect kidney transplant. Has had intermittent diarrhea and constipation since. will have colonoscopy and will follow up with Dr. Stoddard to decide if going to have rectal surgery. Pt [place] 3, [place] 2. Both deliveries with use of forceps and episiotomy. Treatment Goals Patient/Caregiver Goals Pt goal is to improve bowel and urinary continence. Pt goal is to lift rectum to avoid surgery. Prior Functional Status Baseline Function- ADL's Independent Baseline Function- Mobility Independent Baseline Function- Work/School Not working due to incontinence. 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 Current Functional Impairments (Reported) Functional Limitations- ADL's Can't stand a long time. Carrying laundry basket has a little urinary incontinence and prolapse of rectum. Bulging discs limits sitting and gardening. Personal Factors Other Personal Factors That May Effect Per pt report: Therapy/Recovery Lives [place] with spouse. Has had liver transplant with liver located in R lower abdominal quadrant. Bowel dysfunction with intermittent diarrhea onset. 2 bulging discs in lumbar region PT-OP-C Subjective Start: 04/15/19 08:14 Freq: Status: Active Protocol: Document 05/20/19 13:33 LRN (Rec: 05/20/19 14:18 LRN [id number]) OP-PT Subjective Patient Comments Patient Comments Has noticed rectal prolapse is smaller and the BM is not as runny as before. PT-OP-F Manual Assessment Start: 04/22/19 12:54 Freq: Status: Active Protocol: Document 04/22/19 12:47 LRN (Rec: 04/22/19 18:32 LRN [id number]) Manual Assessments Soft Tissue Assessment Soft Tissue Mobility Assessment Increased tone of Perineal body. PT-OP-I Pelvic Floor Start: 04/22/19 12:54 Freq: Status: Active Protocol: Document 04/22/19 12:47 LRN (Rec: 04/22/19 18:25 LRN [id number]) Pelvic Floor Assessment Urine Pelvic Floor Surgery No Urinary Symptoms Urge Sensation,Prolapse Other Urinary Symptoms Urinary incontinence Leakage Cause Cough,Sneeze,Urge Voiding Frequency 5 Nocturia 4 Urine Pad Type Depends Bowel Bowel Surgery No Bowel Symptoms Constipation,Fecal Leakage, Uncontrolled Flatulence Other Bowel Symptoms Diarrhea Pelvic Clock Pelvic Clock 12-3 Tenderness,Tightness Pelvic Clock 3-6 Tenderness,Tightness Pelvic Clock 6-9 Tenderness Pelvic Clock 9-12 Tenderness Pelvic Clock Other 12-6 O'Clock tender superficially 6-12 O'Clock tender deep. Inter-Rectal Assessment Contraction noted, closure of sphincter. Prolapse Cystocele Grade 1 Rectocele Grade 1 Perineal Descent Resting Present Bearing Present Contraction Ability Voluntary Contraction Weak Manual Muscle Testing Left 1 Manual Muscle Testing Right 1 Manual Muscle Testing Anterior 0 Manual Muscle Testing Posterior 1 Muscle Endurance (Seconds) 1 Comments Pelvic Floor Comments 10 weak Quick contractions felt in the posterior PF region only. PT-OP-J Posture/Palpation/Skin Start: 04/15/19 08:14 Freq: Status: Active Protocol: Document 04/22/19 12:47 LRN (Rec: 04/22/19 18:32 LRN [id number]) Posture Evaluation Position Standing Evaluation View All positions Head/C-Spine Posture Forward Head L-Spine Posture Increased Lordosis Scapula Posture (L) Elevated Pelvis Posture Anteriorly Tilted Weight Distribution Balanced Knee Posture (L) Genu Recurvatum,(R) Genu Recurvatum Palpation Assessment Location Leg length Longsit Palpation Location Equal leg lengths Leg length Supine Palpation Location L leg long Prone ASIS Palpation Location Low Left and outflared Standing ASIS Palpation Location Low Left Standing PSIS Palpation Location Low left PT-OP-K Range of Motion Start: 04/15/19 08:14 Freq: Status: Active Protocol: Document 05/06/19 12:48 LRN (Rec: 05/06/19 13:55 LRN [id number]) Hip Goniometric Range of Motion Hip Right Passive Testing Position Supine Flexion w/Knee Flexed 122 Straight Leg Raise 80 Abduction 60 Internal Rotation 45 External Rotation 65 Left Passive Testing Position Supine Flexion w/Knee Flexed 125 Straight Leg Raise 85 Abduction 55 Internal Rotation 40 External Rotation 65 PT-OP-M Strength Start: 04/15/19 08:14 Freq: Status: Active Protocol: Document 05/06/19 12:48 LRN (Rec: 05/06/19 13:55 LRN [id number]) Trunk Strength Trunk Manual Muscle Testing Testing Position Sitting Flexion 3+ Fair+ Extension 3+ Fair+ Rotation Left 3 Fair Rotation Right 5 Normal Lateral Flexion Left 2+ Poor+ Lateral Flexion Right 2+ Poor+ PT-OP-Q Treatments Start: 04/15/19 08:14 Freq: Status: Active Protocol: Document 05/20/19 13:33 LRN (Rec: 05/20/19 14:18 LRN [id number]) Therapeutic Exercises Supine Exercises PF contraction Supine Exercise Name LE roll in/out w/PF contraction sup & on folded pillow Reps/Minutes 10x LE Roll in/out with Deep Breathing Supine Exercise Name LE Roll in/out w/Deep Breathing Reps/Minutes 8' Comments Training. Diaphragmatic Breathing Supine Exercise Name Diaphragmatic Breathing Reps/Minutes 2' Manual Therapy Treatment Soft Tissue Mobilization Bowel massage Body Location Bowel massage Body Position Supine Self-Care/Home Management Treatment Education Patient Education Home Exercise Program Other Education Educated pt in bowel anatomy with handouts for visual assist. Reviewed Bladder Diary and recommended more fluids in midday and to monitor voiding times to help indicate improved bladder positioning with PF strengthening. Activities Self-Care/Home Management Activities Issued, reviewed, and discussed HEP: Bowel massage and Bowel care Program. PT-OP-T Assessment and Plan Start: 04/15/19 08:14 Freq: Status: Active Protocol: Document 05/20/19 13:33 LRN (Rec: 05/20/19 15:45 LRN [id number]) Physical Therapy Assessment Goals Three Impairment Posterior PF weakness Short Term Goal (STG) Improve [place] Stool Scale more consistently to a 4. STG Duration 06/02/19 (05/20/19: MET GOAL. Pt able to have type 4-5 stools) Group Home Goal (LTG) Pt will be able to avoid fecal incontinence by improving bowel function and maintaining continence until reaching bathroom. LTG Duration 08/20/19 Two Impairment Anterior PF weakness Short Term Goal (STG) Improve anterior PF strength to 2/5 with pt able to reach the bathroom without leaking. STG Duration 06/02/19 [employer] Goal (LTG) Improve anterior and lateral wall PF strength to 3/5 with pt able to avoid urinary leaking with a strong cough or sneeze. LTG Duration 08/20/19 One Impairment Lacks independent self care HEP. [employer] Goal (LTG) Pt will be independent in a self care HEP. Pt goal is to improve bowel and urinary continence. Pt goal is to lift rectum to avoid surgery. LTG Duration 08/20/19 (05/13/19: Progressing ) Assessment Summary Assessment Pt bowel function much improved, having less runny stool. Pt has increased water intake; therefore she is voiding mostly every 2 hrs, sometimes 3-4 hrs. Her voiding times are rather long at 10-21 secs. Physical Therapy Plan Frequency and Duration Frequency of Treatment 2x/Week Plan of Care Start Date 04/22/19 Plan of Care End Date 08/20/19 Next Visit Focus/Plan Next Note Type Treatment Note Next Visit Plan Address proper body mechanics for ADLs. Check stool type and onset of diahrrea. Progress PF strengthening (in isolation of accessory muscles and for drawing in motion). Discuss PF internal work and initiate if pt agreeable.
--- NOTE | 2019-05-20 15:48 | PT.OTN ---
Current Diagnoses Low back pain (05/20/19) Muscle weakness (generalized) (05/20/19) Rhabdomyolysis (05/20/19) Mixed incontinence (05/20/19) Physical Therapy Treatment Note PT-OP-A Visit Information Start: 04/15/19 08:14 Freq: Status: Active Protocol: Document 05/20/19 13:33 LRN (Rec: 05/20/19 14:18 LRN [id number]) Out-Patient Physical Therapy Visit Information Visit Information Visit Type Treatment Note Visit Start Time 13:33 Visit Stop Time 14:14 Total Visit Minutes 41 Visit Number 4 Evaluation Information Evaluation Date 04/22/19 Precautions Precautions Kidney transplant - 2000. 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 PT-OP-B Current Condition Start: 04/15/19 08:14 Freq: Status: Active Protocol: Document 04/22/19 12:47 LRN (Rec: 04/22/19 13:43 LRN [id number]) Current Condition History of Current Condition Onset Date 5 yrs ago. Current Complaints Having urinary and bowel incontinence. History of Current Condition Urinary leakage with sneezing or coughing or with an urge. Bowel incontinence when stomach is upset and having diarrhea. Urinary leakage with sneezing and can't stop once urine starts to flow. Prior Treatments and Tests Kidney transplant. Taking Cholestryramine for diahrrea a little bit 1x/day. Future Testing and Treatments Planned Rectal surgery. Developmental History Developmental History Bladder surgery 2010 for prolapse, [facility] by Dr. Beltrán. Had no mesh, uterus removed and tucked in the bladder to protect kidney transplant. Has had intermittent diarrhea and constipation since. will have colonoscopy and will follow up with Dr. Stoddard to decide if going to have rectal surgery. Pt [place] 3, [place] 2. Both deliveries with use of forceps and episiotomy. Treatment Goals Patient/Caregiver Goals Pt goal is to improve bowel and urinary continence. Pt goal is to lift rectum to avoid surgery. Prior Functional Status Baseline Function- ADL's Independent Baseline Function- Mobility Independent Baseline Function- Work/School Not working due to incontinence. 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 Current Functional Impairments (Reported) Functional Limitations- ADL's Can't stand a long time. Carrying laundry basket has a little urinary incontinence and prolapse of rectum. Bulging discs limits sitting and gardening. Personal Factors Other Personal Factors That May Effect Per pt report: Therapy/Recovery Lives [place] with spouse. Has had liver transplant with liver located in R lower abdominal quadrant. Bowel dysfunction with intermittent diarrhea onset. 2 bulging discs in lumbar region PT-OP-C Subjective Start: 04/15/19 08:14 Freq: Status: Active Protocol: Document 05/20/19 13:33 LRN (Rec: 05/20/19 14:18 LRN [id number]) OP-PT Subjective Patient Comments Patient Comments Has noticed rectal prolapse is smaller and the BM is not as runny as before. PT-OP-F Manual Assessment Start: 04/22/19 12:54 Freq: Status: Active Protocol: Document 04/22/19 12:47 LRN (Rec: 04/22/19 18:32 LRN [id number]) Manual Assessments Soft Tissue Assessment Soft Tissue Mobility Assessment Increased tone of Perineal body. PT-OP-I Pelvic Floor Start: 04/22/19 12:54 Freq: Status: Active Protocol: Document 04/22/19 12:47 LRN (Rec: 04/22/19 18:25 LRN [id number]) Pelvic Floor Assessment Urine Pelvic Floor Surgery No Urinary Symptoms Urge Sensation,Prolapse Other Urinary Symptoms Urinary incontinence Leakage Cause Cough,Sneeze,Urge Voiding Frequency 5 Nocturia 4 Urine Pad Type Depends Bowel Bowel Surgery No Bowel Symptoms Constipation,Fecal Leakage, Uncontrolled Flatulence Other Bowel Symptoms Diarrhea Pelvic Clock Pelvic Clock 12-3 Tenderness,Tightness Pelvic Clock 3-6 Tenderness,Tightness Pelvic Clock 6-9 Tenderness Pelvic Clock 9-12 Tenderness Pelvic Clock Other 12-6 O'Clock tender superficially 6-12 O'Clock tender deep. Inter-Rectal Assessment Contraction noted, closure of sphincter. Prolapse Cystocele Grade 1 Rectocele Grade 1 Perineal Descent Resting Present Bearing Present Contraction Ability Voluntary Contraction Weak Manual Muscle Testing Left 1 Manual Muscle Testing Right 1 Manual Muscle Testing Anterior 0 Manual Muscle Testing Posterior 1 Muscle Endurance (Seconds) 1 Comments Pelvic Floor Comments 10 weak Quick contractions felt in the posterior PF region only. PT-OP-J Posture/Palpation/Skin Start: 04/15/19 08:14 Freq: Status: Active Protocol: Document 04/22/19 12:47 LRN (Rec: 04/22/19 18:32 LRN [id number]) Posture Evaluation Position Standing Evaluation View All positions Head/C-Spine Posture Forward Head L-Spine Posture Increased Lordosis Scapula Posture (L) Elevated Pelvis Posture Anteriorly Tilted Weight Distribution Balanced Knee Posture (L) Genu Recurvatum,(R) Genu Recurvatum Palpation Assessment Location Leg length Longsit Palpation Location Equal leg lengths Leg length Supine Palpation Location L leg long Prone ASIS Palpation Location Low Left and outflared Standing ASIS Palpation Location Low Left Standing PSIS Palpation Location Low left PT-OP-K Range of Motion Start: 04/15/19 08:14 Freq: Status: Active Protocol: Document 05/06/19 12:48 LRN (Rec: 05/06/19 13:55 LRN [id number]) Hip Goniometric Range of Motion Hip Right Passive Testing Position Supine Flexion w/Knee Flexed 122 Straight Leg Raise 80 Abduction 60 Internal Rotation 45 External Rotation 65 Left Passive Testing Position Supine Flexion w/Knee Flexed 125 Straight Leg Raise 85 Abduction 55 Internal Rotation 40 External Rotation 65 PT-OP-M Strength Start: 04/15/19 08:14 Freq: Status: Active Protocol: Document 05/06/19 12:48 LRN (Rec: 05/06/19 13:55 LRN [id number]) Trunk Strength Trunk Manual Muscle Testing Testing Position Sitting Flexion 3+ Fair+ Extension 3+ Fair+ Rotation Left 3 Fair Rotation Right 5 Normal Lateral Flexion Left 2+ Poor+ Lateral Flexion Right 2+ Poor+ PT-OP-Q Treatments Start: 04/15/19 08:14 Freq: Status: Active Protocol: Document 05/20/19 13:33 LRN (Rec: 05/20/19 14:18 LRN [id number]) Therapeutic Exercises Supine Exercises PF contraction Supine Exercise Name LE roll in/out w/PF contraction sup & on folded pillow Reps/Minutes 10x LE Roll in/out with Deep Breathing Supine Exercise Name LE Roll in/out w/Deep Breathing Reps/Minutes 8' Comments Training. Diaphragmatic Breathing Supine Exercise Name Diaphragmatic Breathing Reps/Minutes 2' Manual Therapy Treatment Soft Tissue Mobilization Bowel massage Body Location Bowel massage Body Position Supine Self-Care/Home Management Treatment Education Patient Education Home Exercise Program Other Education Educated pt in bowel anatomy with handouts for visual assist. Reviewed Bladder Diary and recommended more fluids in midday and to monitor voiding times to help indicate improved bladder positioning with PF strengthening. Activities Self-Care/Home Management Activities Issued, reviewed, and discussed HEP: Bowel massage and Bowel care Program. PT-OP-T Assessment and Plan Start: 04/15/19 08:14 Freq: Status: Active Protocol: Document 05/20/19 13:33 LRN (Rec: 05/20/19 15:45 LRN [id number]) Physical Therapy Assessment Goals Three Impairment Posterior PF weakness Short Term Goal (STG) Improve [place] Stool Scale more consistently to a 4. STG Duration 06/02/19 (05/20/19: MET GOAL. Pt able to have type 4-5 stools) Intermediate Goal (LTG) Pt will be able to avoid fecal incontinence by improving bowel function and maintaining continence until reaching bathroom. LTG Duration 08/20/19 Two Impairment Anterior PF weakness Short Term Goal (STG) Improve anterior PF strength to 2/5 with pt able to reach the bathroom without leaking. STG Duration 06/02/19 Cable Splicing Technician Goal (LTG) Improve anterior and lateral wall PF strength to 3/5 with pt able to avoid urinary leaking with a strong cough or sneeze. LTG Duration 08/20/19 One Impairment Lacks independent self care HEP. Cable Splicing Technician Goal (LTG) Pt will be independent in a self care HEP. Pt goal is to improve bowel and urinary continence. Pt goal is to lift rectum to avoid surgery. LTG Duration 08/20/19 (05/13/19: Progressing ) Assessment Summary Assessment Pt bowel function much improved, having less runny stool. Pt has increased water intake; therefore she is voiding mostly every 2 hrs, sometimes 3-4 hrs. Her voiding times are rather long at 10-21 secs. Physical Therapy Plan Frequency and Duration Frequency of Treatment 2x/Week Plan of Care Start Date 04/22/19 Plan of Care End Date 08/20/19 Next Visit Focus/Plan Next Note Type Treatment Note Next Visit Plan Address proper body mechanics for ADLs. Check stool type and onset of diahrrea. Progress PF strengthening (in isolation of accessory muscles and for drawing in motion). Discuss PF internal work and initiate if pt agreeable.
--- NOTE | 2019-05-26 14:15 | PT.OTN ---
Current Diagnoses Low back pain (05/26/19) Muscle weakness (generalized) (05/26/19) Rhabdomyolysis (05/26/19) Mixed incontinence (05/26/19) Physical Therapy Treatment Note PT-OP-A Visit Information Start: 04/15/19 08:14 Freq: Status: Active Protocol: Document 05/26/19 08:18 LRN (Rec: 05/26/19 09:05 LRN [id number]) Out-Patient Physical Therapy Visit Information Visit Information Visit Type Treatment Note Visit Start Time 08:18 Visit Stop Time 09:05 Total Visit Minutes 47 Visit Number 5 Evaluation Information Evaluation Date 04/22/19 Precautions Precautions Kidney transplant - 2000. 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 PT-OP-B Current Condition Start: 04/15/19 08:14 Freq: Status: Active Protocol: Document 04/22/19 12:47 LRN (Rec: 04/22/19 13:43 LRN [id number]) Current Condition History of Current Condition Onset Date 5 yrs ago. Current Complaints Having urinary and bowel incontinence. History of Current Condition Urinary leakage with sneezing or coughing or with an urge. Bowel incontinence when stomach is upset and having diarrhea. Urinary leakage with sneezing and can't stop once urine starts to flow. Prior Treatments and Tests Kidney transplant. Taking Cholestryramine for diahrrea a little bit 1x/day. Future Testing and Treatments Planned Rectal surgery. Developmental History Developmental History Bladder surgery 2010 for prolapse, [facility] by Dr. Beltrán. Had no mesh, uterus removed and tucked in the bladder to protect kidney transplant. Has had intermittent diarrhea and constipation since. will have colonoscopy and will follow up with Dr. Stoddard to decide if going to have rectal surgery. Pt [place] 3, [place] 2. Both deliveries with use of forceps and episiotomy. Treatment Goals Patient/Caregiver Goals Pt goal is to improve bowel and urinary continence. Pt goal is to lift rectum to avoid surgery. Prior Functional Status Baseline Function- ADL's Independent Baseline Function- Mobility Independent Baseline Function- Work/School Not working due to incontinence. 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 Current Functional Impairments (Reported) Functional Limitations- ADL's Can't stand a long time. Carrying laundry basket has a little urinary incontinence and prolapse of rectum. Bulging discs limits sitting and gardening. Personal Factors Other Personal Factors That May Effect Per pt report: Therapy/Recovery Lives [place] with spouse. Has had liver transplant with liver located in R lower abdominal quadrant. Bowel dysfunction with intermittent diarrhea onset. 2 bulging discs in lumbar region PT-OP-C Subjective Start: 04/15/19 08:14 Freq: Status: Active Protocol: Document 05/26/19 08:18 LRN (Rec: 05/26/19 09:05 LRN [id number]) OP-PT Subjective Patient Comments Patient Comments States she had one episode of diahrrea last week, otherwise BM's are type 4-5. PT-OP-F Manual Assessment Start: 04/22/19 12:54 Freq: Status: Active Protocol: Document 04/22/19 12:47 LRN (Rec: 04/22/19 18:32 LRN [id number]) Manual Assessments Soft Tissue Assessment Soft Tissue Mobility Assessment Increased tone of Perineal body. PT-OP-I Pelvic Floor Start: 04/22/19 12:54 Freq: Status: Active Protocol: Document 04/22/19 12:47 LRN (Rec: 04/22/19 18:25 LRN [id number]) Pelvic Floor Assessment Urine Pelvic Floor Surgery No Urinary Symptoms Urge Sensation,Prolapse Other Urinary Symptoms Urinary incontinence Leakage Cause Cough,Sneeze,Urge Voiding Frequency 5 Nocturia 4 Urine Pad Type Depends Bowel Bowel Surgery No Bowel Symptoms Constipation,Fecal Leakage, Uncontrolled Flatulence Other Bowel Symptoms Diarrhea Pelvic Clock Pelvic Clock 12-3 Tenderness,Tightness Pelvic Clock 3-6 Tenderness,Tightness Pelvic Clock 6-9 Tenderness Pelvic Clock 9-12 Tenderness Pelvic Clock Other 12-6 O'Clock tender superficially 6-12 O'Clock tender deep. Inter-Rectal Assessment Contraction noted, closure of sphincter. Prolapse Cystocele Grade 1 Rectocele Grade 1 Perineal Descent Resting Present Bearing Present Contraction Ability Voluntary Contraction Weak Manual Muscle Testing Left 1 Manual Muscle Testing Right 1 Manual Muscle Testing Anterior 0 Manual Muscle Testing Posterior 1 Muscle Endurance (Seconds) 1 Comments Pelvic Floor Comments 10 weak Quick contractions felt in the posterior PF region only. PT-OP-J Posture/Palpation/Skin Start: 04/15/19 08:14 Freq: Status: Active Protocol: Document 04/22/19 12:47 LRN (Rec: 04/22/19 18:32 LRN [id number]) Posture Evaluation Position Standing Evaluation View All positions Head/C-Spine Posture Forward Head L-Spine Posture Increased Lordosis Scapula Posture (L) Elevated Pelvis Posture Anteriorly Tilted Weight Distribution Balanced Knee Posture (L) Genu Recurvatum,(R) Genu Recurvatum Palpation Assessment Location Leg length Longsit Palpation Location Equal leg lengths Leg length Supine Palpation Location L leg long Prone ASIS Palpation Location Low Left and outflared Standing ASIS Palpation Location Low Left Standing PSIS Palpation Location Low left PT-OP-K Range of Motion Start: 04/15/19 08:14 Freq: Status: Active Protocol: Document 05/06/19 12:48 LRN (Rec: 05/06/19 13:55 LRN [id number]) Hip Goniometric Range of Motion Hip Right Passive Testing Position Supine Flexion w/Knee Flexed 122 Straight Leg Raise 80 Abduction 60 Internal Rotation 45 External Rotation 65 Left Passive Testing Position Supine Flexion w/Knee Flexed 125 Straight Leg Raise 85 Abduction 55 Internal Rotation 40 External Rotation 65 PT-OP-M Strength Start: 04/15/19 08:14 Freq: Status: Active Protocol: Document 05/06/19 12:48 LRN (Rec: 05/06/19 13:55 LRN [id number]) Trunk Strength Trunk Manual Muscle Testing Testing Position Sitting Flexion 3+ Fair+ Extension 3+ Fair+ Rotation Left 3 Fair Rotation Right 5 Normal Lateral Flexion Left 2+ Poor+ Lateral Flexion Right 2+ Poor+ PT-OP-Q Treatments Start: 04/15/19 08:14 Freq: Status: Active Protocol: Document 05/26/19 08:18 LRN (Rec: 05/26/19 09:05 LRN [id number]) Therapeutic Exercises Supine Exercises TA Contraction Supine Exercise Name TA Contraction Side bilateral Reps/Minutes 5' Comments Right stronger than Left, poor contraction ability in supine PF contraction Supine Exercise Name LE roll in/out w/PF contraction sup & on folded pillow Reps/Minutes 10x Comments Pt to add Lev 1 T-Band to HEP LE Roll in/out with Deep Breathing Supine Exercise Name LE Roll in/out w/Deep Breathing Reps/Minutes 8' Comments Training. Sidelying Exercises TA contraction Sidelying Exercise Name TA Side left Reps/Minutes 10 hold x 10 Standing Exercises Squatting knees over ankles Standing Exercise Name Squatting: knees over ankles, with & without PF contraction Reps/Minutes 10x Comments Extra time taken for training. Therapeutic Activity Therapeutic Activity Training: sitting posture Name Sitting posturing in car/ sitting Lifting Name Squat to lift Transfer training Name Sit<>Supine, Sit<>stand Comments Training on hip hinging. Self-Care/Home Management Treatment Education Patient Education Body Mechanics,Home Exercise Program,Posture Other Education Reviewed [place] Diary and discussed at length bowel voiding frequencies and stool types based on voiding frequencies (constipation > diarrhea). Activities Self-Care/Home Management Activities I/S pt in HEP: Squat with knees over ankles, holding onto counter sink. Issued: Lev 1 T-Band. Body mechanics training (see Therapeutic ex for review): transfers, squatting, bending lifting laundry basket. Discussed keeping object close to COG and body mechanics with COG through feet. PT-OP-T Assessment and Plan Start: 04/15/19 08:14 Freq: Status: Active Protocol: Document 05/26/19 08:18 LRN (Rec: 05/26/19 09:05 LRN [id number]) Physical Therapy Assessment Goals Three Impairment Posterior PF weakness Short Term Goal (STG) Improve [place] Stool Scale more consistently to a 4. STG Duration 06/02/19 (05/20/19: MET GOAL. Pt able to have type 4-5 stools) Assisted Goal (LTG) Pt will be able to avoid fecal incontinence by improving bowel function and maintaining continence until reaching bathroom. LTG Duration 08/20/19 (05/26/19: MET GOAL) Two Impairment Anterior PF weakness Short Term Goal (STG) Improve anterior PF strength to 2/5 with pt able to reach the bathroom without leaking. STG Duration 06/02/19 Personnel Clerk Goal (LTG) Improve anterior and lateral wall PF strength to 3/5 with pt able to avoid urinary leaking with a strong cough or sneeze. LTG Duration 08/20/19 One Impairment Lacks independent self care HEP. Personnel Clerk Goal (LTG) Pt will be independent in a self care HEP. Pt goal is to improve bowel and urinary continence. Pt goal is to lift rectum to avoid surgery. LTG Duration 08/20/19 (05/13/19: Progressing ) Assessment Summary Assessment Pt to have normal stool types 90+% of the time and is no longer experiencing incontinence when trying to get to bathroom. As long as she avoids constipation she doesn't experience episodes of diahrrea. Pt very much needed body mechanics training and may need further review. Physical Therapy Plan Frequency and Duration Frequency of Treatment 2x/Week Plan of Care Start Date 04/22/19 Plan of Care End Date 08/20/19 Next Visit Focus/Plan Next Note Type Treatment Note Next Visit Plan Review proper body mechanics for transfers and squatting. Add Quad strengthening. Progress PF strengthening (in isolation of accessory muscles and for drawing in motion). Discuss PF internal work and initiate if pt agreeable.
--- NOTE | 2019-06-03 17:22 | PT.OTN ---
Current Diagnoses Low back pain (06/03/19) Muscle weakness (generalized) (06/03/19) Rhabdomyolysis (06/03/19) Mixed incontinence (06/03/19) Physical Therapy Treatment Note PT-OP-A Visit Information Start: 04/15/19 08:14 Freq: Status: Active Protocol: Document 06/03/19 13:32 LRN (Rec: 06/03/19 14:26 LRN [id number]) Out-Patient Physical Therapy Visit Information Visit Information Visit Type Treatment Note Visit Start Time 13:33 Visit Stop Time 14:23 Total Visit Minutes 50 Visit Number 6 Evaluation Information Evaluation Date 04/22/19 Precautions Precautions Kidney transplant - 2000. 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 PT-OP-B Current Condition Start: 04/15/19 08:14 Freq: Status: Active Protocol: Document 04/22/19 12:47 LRN (Rec: 04/22/19 13:43 LRN [id number]) Current Condition History of Current Condition Onset Date 5 yrs ago. Current Complaints Having urinary and bowel incontinence. History of Current Condition Urinary leakage with sneezing or coughing or with an urge. Bowel incontinence when stomach is upset and having diarrhea. Urinary leakage with sneezing and can't stop once urine starts to flow. Prior Treatments and Tests Kidney transplant. Taking Cholestryramine for diahrrea a little bit 1x/day. Future Testing and Treatments Planned Rectal surgery. Developmental History Developmental History Bladder surgery 2010 for prolapse, [facility] by Dr. Beltrán. Had no mesh, uterus removed and tucked in the bladder to protect kidney transplant. Has had intermittent diarrhea and constipation since. will have colonoscopy and will follow up with Dr. Stoddard to decide if going to have rectal surgery. Pt [place] 3, Parity 2. Both deliveries with use of forceps and episiotomy. Treatment Goals Patient/Caregiver Goals Pt goal is to improve bowel and urinary continence. Pt goal is to lift rectum to avoid surgery. Prior Functional Status Baseline Function- ADL's Independent Baseline Function- Mobility Independent Baseline Function- Work/School Not working due to incontinence. 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 Current Functional Impairments (Reported) Functional Limitations- ADL's Can't stand a long time. Carrying laundry basket has a little urinary incontinence and prolapse of rectum. Bulging discs limits sitting and gardening. Personal Factors Other Personal Factors That May Effect Per pt report: Therapy/Recovery Lives [place] with spouse. Has had liver transplant with liver located in R lower abdominal quadrant. Bowel dysfunction with intermittent diarrhea onset. 2 bulging discs in lumbar region PT-OP-C Subjective Start: 04/15/19 08:14 Freq: Status: Active Protocol: Document 06/03/19 13:32 LRN (Rec: 06/03/19 14:26 LRN [id number]) OP-PT Subjective Patient Comments Patient Comments Still has some type 5,6,7 stool occasionally. Will be seeing Dr. Stoddard after 3 months from last visit (~end of June). Patient Reported Progress Improving PT-OP-F Manual Assessment Start: 04/22/19 12:54 Freq: Status: Active Protocol: Document 04/22/19 12:47 LRN (Rec: 04/22/19 18:32 LRN [id number]) Manual Assessments Soft Tissue Assessment Soft Tissue Mobility Assessment Increased tone of Perineal body. PT-OP-I Pelvic Floor Start: 04/22/19 12:54 Freq: Status: Active Protocol: Document 06/03/19 13:32 LRN (Rec: 06/03/19 14:26 LRN [id number]) Pelvic Floor Assessment Pelvic Clock Pelvic Clock 12-3 Tenderness Pelvic Clock 3-6 Tenderness Prolapse Uterine Prolapse Grade 1 Urethrocele Grade 1 Contraction Ability Voluntary Contraction Weak Voluntary Relaxation Weak Manual Muscle Testing Left 2 Manual Muscle Testing Right 3 Manual Muscle Testing Posterior 3 Muscle Endurance (Seconds) 3 Number of Quick Contractions In 10 3 Seconds PT-OP-J Posture/Palpation/Skin Start: 04/15/19 08:14 Freq: Status: Active Protocol: Document 04/22/19 12:47 LRN (Rec: 04/22/19 18:32 LRN [id number]) Posture Evaluation Position Standing Evaluation View All positions Head/C-Spine Posture Forward Head L-Spine Posture Increased Lordosis Scapula Posture (L) Elevated Pelvis Posture Anteriorly Tilted Weight Distribution Balanced Knee Posture (L) Genu Recurvatum,(R) Genu Recurvatum Palpation Assessment Location Leg length Longsit Palpation Location Equal leg lengths Leg length Supine Palpation Location L leg long Prone ASIS Palpation Location Low Left and outflared Standing ASIS Palpation Location Low Left Standing PSIS Palpation Location Low left PT-OP-K Range of Motion Start: 04/15/19 08:14 Freq: Status: Active Protocol: Document 05/06/19 12:48 LRN (Rec: 05/06/19 13:55 LRN [id number]) Hip Goniometric Range of Motion Hip Right Passive Testing Position Supine Flexion w/Knee Flexed 122 Straight Leg Raise 80 Abduction 60 Internal Rotation 45 External Rotation 65 Left Passive Testing Position Supine Flexion w/Knee Flexed 125 Straight Leg Raise 85 Abduction 55 Internal Rotation 40 External Rotation 65 PT-OP-M Strength Start: 04/15/19 08:14 Freq: Status: Active Protocol: Document 05/06/19 12:48 LRN (Rec: 05/06/19 13:55 LRN [id number]) Trunk Strength Trunk Manual Muscle Testing Testing Position Sitting Flexion 3+ Fair+ Extension 3+ Fair+ Rotation Left 3 Fair Rotation Right 5 Normal Lateral Flexion Left 2+ Poor+ Lateral Flexion Right 2+ Poor+ PT-OP-Q Treatments Start: 04/15/19 08:14 Freq: Status: Active Protocol: Document 06/03/19 13:32 LRN (Rec: 06/03/19 14:26 LRN [id number]) Therapeutic Exercises Supine Exercises TA Contraction Supine Exercise Name TA Contraction Side bilateral Reps/Minutes 5' Comments Right stronger than Left, poor contraction ability in supine PF contraction Supine Exercise Name [place] PF contractions Quick Flicks & Long Holds Reps/Minutes 10' Comments PF strength also assessed Sidelying Exercises Clamshell w/Kegel Sidelying Exercise Name Clamshell with Kegel Side bilateral Reps/Minutes 5' Comments Extra time taken for training Kegel w/L Hip AD Sidelying Exercise Name Kegel w/Hip AD Side left Reps/Minutes Hold 6: Rest 10 TA contraction Sidelying Exercise Name TA/PF contraction Side bilateral Reps/Minutes 3' Comments Review Therapeutic Activity Therapeutic Activity Transfer training Name Sit to stand, Squatting Reps/Minutes 3' Comments Brief review of each movement with pt practicing sit to stand. Self-Care/Home Management Treatment Education Patient Education Home Exercise Program Activities Self-Care/Home Management Activities Reviewed bladder diary for voiding times, frequency and leakage. Discussed at length fluid intake vs output with recommendations given on food intake to help normalize stool type. Discussed recommendations in voiding frequency and when to add voids to daily scedule. Recommended pt increase solid food intake or fiber intake if taking in a lot of fluids. Discusssed BRAT diet to harden stools if over consumption of fluids in diet. Issued & reviewed HEP: Janice Ruby w /Hip AD. PT-OP-T Assessment and Plan Start: 04/15/19 08:14 Freq: Status: Active Protocol: Document 06/03/19 13:32 LRN (Rec: 06/03/19 14:26 LRN [id number]) Physical Therapy Assessment Goals Three Impairment Posterior PF weakness Short Term Goal (STG) Improve [place] Stool Scale more consistently to a 4. STG Duration 06/02/19 (05/20/19: MET GOAL. Type 4-5 stools) Shelter Goal (LTG) Pt will be able to avoid fecal incontinence by improving bowel function and maintaining continence until reaching bathroom. LTG Duration 08/20/19 (05/26/19: MET GOAL) Two Impairment Anterior PF weakness Short Term Goal (STG) Improve anterior PF strength to 2/5 with pt able to reach the bathroom without leaking. (06/03/19: PF strength at least 2/5) STG Duration 06/02/19 (06/03/19: MET GOAL, if listens to body, no leakage) Human Service Coordinator Goal (LTG) Improve anterior and lateral wall PF strength to 3/5 with pt able to avoid urinary leaking with a strong cough or sneeze. (06/03/19: PF strength at least 2/5) LTG Duration 08/20/19 (06/03/19: Very little leakage with a sneeze) One Impairment Lacks independent self care HEP. Shelter Goal (LTG) Pt will be independent in a self care HEP. Pt goal is to improve bowel and urinary continence. Pt goal is to lift rectum to avoid surgery. LTG Duration 08/20/19 (05/13/19: Progressing ) Progress Towards Goals Progress Towards Goals Progressing Toward Goals Progress Comments Goal 1: Progressing Goal 2: STG: MET LTG: Progressing Goal 3: STG: MET LTG: MET Assessment Summary Assessment Pt PF strength improved from 1 /5 to 2/5 with posterior PF strength 2+/5. The pt's symptoms of fecal incontinence has decreased greatly and she is only experiencing occasional fecal smearing. The pt is able to control urinary leakage unless she waits too long to void. The pt is progressing faster than expected. Physical Therapy Plan Frequency and Duration Frequency of Treatment 2x/Week Plan of Care Start Date 04/22/19 Plan of Care End Date 08/20/19 Next Visit Focus/Plan Next Note Type Treatment Note Next Visit Plan Review proper body mechanics for transfers and squatting. Add Quad strengthening. Progress PF strengthening (in isolation of accessory muscles and for drawing in motion). Progress pt to standing, walking, stairs, and other functional activities for PF strengthening. Issue TA strengthening in different positions.
--- NOTE | 2019-06-10 13:50 | PT.OTN ---
Current Diagnoses Low back pain (06/10/19) Muscle weakness (generalized) (06/10/19) Rhabdomyolysis (06/10/19) Mixed incontinence (06/10/19) Physical Therapy Treatment Note PT-OP-A Visit Information Start: 04/15/19 08:14 Freq: Status: Active Protocol: Document 06/10/19 12:47 LRN (Rec: 06/10/19 13:49 LRN [id number]) Out-Patient Physical Therapy Visit Information Visit Information Visit Type Treatment Note Visit Start Time 12:47 Visit Stop Time 13:34 Total Visit Minutes 47 Visit Number 7 Evaluation Information Evaluation Date 04/22/19 Precautions Precautions Kidney transplant - 2000. 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 PT-OP-B Current Condition Start: 04/15/19 08:14 Freq: Status: Active Protocol: Document 04/22/19 12:47 LRN (Rec: 04/22/19 13:43 LRN [id number]) Current Condition History of Current Condition Onset Date 5 yrs ago. Current Complaints Having urinary and bowel incontinence. History of Current Condition Urinary leakage with sneezing or coughing or with an urge. Bowel incontinence when stomach is upset and having diarrhea. Urinary leakage with sneezing and can't stop once urine starts to flow. Prior Treatments and Tests Kidney transplant. Taking Cholestryramine for diahrrea a little bit 1x/day. Future Testing and Treatments Planned Rectal surgery. Developmental History Developmental History Bladder surgery 2010 for prolapse, [facility] by Dr. Beltrán. Had no mesh, uterus removed and tucked in the bladder to protect kidney transplant. Has had intermittent diarrhea and constipation since. will have colonoscopy and will follow up with Dr. Stoddard to decide if going to have rectal surgery. Pt [place] 3, Parity 2. Both deliveries with use of forceps and episiotomy. Treatment Goals Patient/Caregiver Goals Pt goal is to improve bowel and urinary continence. Pt goal is to lift rectum to avoid surgery. Prior Functional Status Baseline Function- ADL's Independent Baseline Function- Mobility Independent Baseline Function- Work/School Not working due to incontinence. 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 Current Functional Impairments (Reported) Functional Limitations- ADL's Can't stand a long time. Carrying laundry basket has a little urinary incontinence and prolapse of rectum. Bulging discs limits sitting and gardening. Personal Factors Other Personal Factors That May Effect Per pt report: Therapy/Recovery Lives [place] with spouse. Has had liver transplant with liver located in R lower abdominal quadrant. Bowel dysfunction with intermittent diarrhea onset. 2 bulging discs in lumbar region PT-OP-C Subjective Start: 04/15/19 08:14 Freq: Status: Active Protocol: Document 06/10/19 12:47 LRN (Rec: 06/10/19 13:49 LRN [id number]) OP-PT Subjective Patient Comments Patient Comments Prolapse is little. Saw Dr Robison yesterday and told Dr. ghosh was helping. PT-OP-F Manual Assessment Start: 04/22/19 12:54 Freq: Status: Active Protocol: Document 04/22/19 12:47 LRN (Rec: 04/22/19 18:32 LRN [id number]) Manual Assessments Soft Tissue Assessment Soft Tissue Mobility Assessment Increased tone of Perineal body. PT-OP-I Pelvic Floor Start: 04/22/19 12:54 Freq: Status: Active Protocol: Document 06/03/19 13:32 LRN (Rec: 06/03/19 14:26 LRN [id number]) Pelvic Floor Assessment Pelvic Clock Pelvic Clock 12-3 Tenderness Pelvic Clock 3-6 Tenderness Prolapse Uterine Prolapse Grade 1 Urethrocele Grade 1 Contraction Ability Voluntary Contraction Weak Voluntary Relaxation Weak Manual Muscle Testing Left 2 Manual Muscle Testing Right 3 Manual Muscle Testing Posterior 3 Muscle Endurance (Seconds) 3 Number of Quick Contractions In 10 3 Seconds PT-OP-J Posture/Palpation/Skin Start: 04/15/19 08:14 Freq: Status: Active Protocol: Document 04/22/19 12:47 LRN (Rec: 04/22/19 18:32 LRN [id number]) Posture Evaluation Position Standing Evaluation View All positions Head/C-Spine Posture Forward Head L-Spine Posture Increased Lordosis Scapula Posture (L) Elevated Pelvis Posture Anteriorly Tilted Weight Distribution Balanced Knee Posture (L) Genu Recurvatum,(R) Genu Recurvatum Palpation Assessment Location Leg length Longsit Palpation Location Equal leg lengths Leg length Supine Palpation Location L leg long Prone ASIS Palpation Location Low Left and outflared Standing ASIS Palpation Location Low Left Standing PSIS Palpation Location Low left PT-OP-K Range of Motion Start: 04/15/19 08:14 Freq: Status: Active Protocol: Document 05/06/19 12:48 LRN (Rec: 05/06/19 13:55 LRN [id number]) Hip Goniometric Range of Motion Hip Right Passive Testing Position Supine Flexion w/Knee Flexed 122 Straight Leg Raise 80 Abduction 60 Internal Rotation 45 External Rotation 65 Left Passive Testing Position Supine Flexion w/Knee Flexed 125 Straight Leg Raise 85 Abduction 55 Internal Rotation 40 External Rotation 65 PT-OP-M Strength Start: 04/15/19 08:14 Freq: Status: Active Protocol: Document 05/06/19 12:48 LRN (Rec: 05/06/19 13:55 LRN [id number]) Trunk Strength Trunk Manual Muscle Testing Testing Position Sitting Flexion 3+ Fair+ Extension 3+ Fair+ Rotation Left 3 Fair Rotation Right 5 Normal Lateral Flexion Left 2+ Poor+ Lateral Flexion Right 2+ Poor+ PT-OP-Q Treatments Start: 04/15/19 08:14 Freq: Status: Active Protocol: Document 06/10/19 12:47 LRN (Rec: 06/10/19 13:49 LRN [id number]) Therapeutic Exercises Supine Exercises TA Contraction Supine Exercise Name ON WEDGE: Hands & knees push Reps/Minutes 10 hold x 10 Bridge Supine Exercise Name Bridge w/PF contraction Reps/Minutes 10x Comments I/S for long hold 10 & Quick flicks x 10 PF contraction Supine Exercise Name PF contraction with Hands/ knees push Reps/Minutes 10 hold x 10 LE Roll in/out with Deep Breathing Supine Exercise Name ON WEDGE: LE Roll in/out w/ Deep Breathing Reps/Minutes 4' Sitting Exercises Knee ext Sitting Exercise Name Knee ext w/PF contraction/ breathing Side bilateral Resistance Lev 2 T-Band Reps/Minutes 10 x each Comments Extra time taken for training Therapeutic Activity Therapeutic Activity Picking up objects Name Picking up objects off the floor- CAROLANN sides Reps/Minutes 8' Comments Extra time for training needed . Lifting Name Squat Lift with proper technique & breathing Reps/Minutes 5' Transfer training Name Sup to Sit, Sit to stand, Squatting Reps/Minutes 10' Self-Care/Home Management Treatment Education Patient Education Body Mechanics Other Education Reviewed use of wedge for PF exer. Answered al length pt's questions regarding using the wedge to sleep. Recommended pt use wedge only for exercise . PT-OP-T Assessment and Plan Start: 04/15/19 08:14 Freq: Status: Active Protocol: Document 06/10/19 12:47 LRN (Rec: 06/10/19 13:49 LRN [id number]) Physical Therapy Assessment Goals Three Impairment Posterior PF weakness Short Term Goal (STG) Improve [place] Stool Scale more consistently to a 4. STG Duration 06/02/19 (05/20/19: MET GOAL. Type 4-5 stools) Social Media Director Goal (LTG) Pt will be able to avoid fecal incontinence by improving bowel function and maintaining continence until reaching bathroom. LTG Duration 08/20/19 (05/26/19: MET GOAL) Two Impairment Anterior PF weakness Short Term Goal (STG) Improve anterior PF strength to 2/5 with pt able to reach the bathroom without leaking. (06/03/19: PF strength at least 2/5) STG Duration 06/02/19 (06/03/19: MET GOAL, if listens to body, no leakage) Fdc Goal (LTG) Improve anterior and lateral wall PF strength to 3/5 with pt able to avoid urinary leaking with a strong cough or sneeze. (06/03/19: PF strength at least 2/5) LTG Duration 08/20/19 (06/03/19: Very little leakage with a sneeze) One Impairment Lacks independent self care HEP. Fdc Goal (LTG) Pt will be independent in a self care HEP. Pt goal is to improve bowel and urinary continence. Pt goal is to lift rectum to avoid surgery. LTG Duration 08/20/19 (05/13/19: Progressing ) Assessment Summary Assessment Pt appears to have a good understanding of proper body mechanics for squatting and transfers. She may need further training for picking up objects off floor. Pt description of urinary leakage indicates further anterior PF strengthening needed. Physical Therapy Plan Frequency and Duration Frequency of Treatment 2x/Week Plan of Care Start Date 04/22/19 Plan of Care End Date 08/20/19 Next Visit Focus/Plan Next Note Type Treatment Note Next Visit Plan Progress Quad strengthening. Progress PF strengthening (in isolation of accessory muscles and for drawing in motion). Progress pt to standing, walking, stairs, and other functional activities for PF strengthening. Issue TA strengthening in different positions.
--- NOTE | 2019-11-08 09:08 | PT-OP ANOTE ---
PT leaves message for pt regarding PT POC. PT leaves clinic phone number and asks pt to call back to communicate her intentions. PT communicated that if we do not hear by Thursday, will d/c PT at this time and pt can follow-up with doctor for new order if she wishes to con't PT in the future.
--- NOTE | 2019-12-15 17:51 | PT.OPDS ---
Current Diagnoses Low back pain (06/10/19) Muscle weakness (generalized) (06/10/19) Rhabdomyolysis (06/10/19) Mixed incontinence (06/10/19) Visit Care Team Role Provider Type Shantell Rodriguez MD Primary Care Provider Physician Specialty: BISTRO ATTENDANT Address: [address] [place] [address], [id number] Email: [email or web address] Attending Provider Non-Staff Specialty: General Surgery Address: [address] [place] [address], [facility] [address], [address] Email: Visit Number Visit Number 7 Discharge Summary PT-OP-B Current Condition Start: 04/15/19 08:14 Freq: Status: Active Protocol: Document 04/22/19 12:47 LRN (Rec: 04/22/19 13:43 LRN [id number]) Current Condition History of Current Condition Onset Date 5 yrs ago. Current Complaints Having urinary and bowel incontinence. History of Current Condition Urinary leakage with sneezing or coughing or with an urge. Bowel incontinence when stomach is upset and having diarrhea. Urinary leakage with sneezing and can't stop once urine starts to flow. Prior Treatments and Tests Kidney transplant. Taking Cholestryramine for diahrrea a little bit 1x/day. Future Testing and Treatments Planned Rectal surgery. Developmental History Developmental History Bladder surgery 2010 for prolapse, [facility] by Dr. Beltrán. Had no mesh, uterus removed and tucked in the bladder to protect kidney transplant. Has had intermittent diarrhea and constipation since. will have colonoscopy and will follow up with Dr. Stoddard to decide if going to have rectal surgery. Pt [place] 3, Parity 2. Both deliveries with use of forceps and episiotomy. Treatment Goals Patient/Caregiver Goals Pt goal is to improve bowel and urinary continence. Pt goal is to lift rectum to avoid surgery. Prior Functional Status Baseline Function- ADL's Independent Baseline Function- Mobility Independent Baseline Function- Work/School Not working due to incontinence. Was a fine unhairer standing 8 hrs/day. Current Functional Impairments (Reported) Functional Limitations- ADL's Can't stand a long time. Carrying laundry basket has a little urinary incontinence and prolapse of rectum. Bulging discs limits sitting and gardening. Personal Factors Other Personal Factors That May Effect Per pt report: Therapy/Recovery Lives [place] with spouse. Has had liver transplant with liver located in R lower abdominal quadrant. Bowel dysfunction with intermittent diarrhea onset. 2 bulging discs in lumbar region PT-OP-C Subjective Start: 04/15/19 08:14 Freq: Status: Active Protocol: Document 06/10/19 12:47 LRN (Rec: 06/10/19 13:49 LRN [id number]) OP-PT Subjective Patient Comments Patient Comments Prolapse is little. Saw Dr Robison yesterday and told Dr. ghosh was helping. PT-OP-F Manual Assessment Start: 04/22/19 12:54 Freq: Status: Active Protocol: Document 04/22/19 12:47 LRN (Rec: 04/22/19 18:32 LRN [id number]) Manual Assessments Soft Tissue Assessment Soft Tissue Mobility Assessment Increased tone of Perineal body. PT-OP-I Pelvic Floor Start: 04/22/19 12:54 Freq: Status: Active Protocol: Document 06/03/19 13:32 LRN (Rec: 06/03/19 14:26 LRN [id number]) Pelvic Floor Assessment Pelvic Clock Pelvic Clock 12-3 Tenderness Pelvic Clock 3-6 Tenderness Prolapse Uterine Prolapse Grade 1 Urethrocele Grade 1 Contraction Ability Voluntary Contraction Weak Voluntary Relaxation Weak Manual Muscle Testing Left 2 Manual Muscle Testing Right 3 Manual Muscle Testing Posterior 3 Muscle Endurance (Seconds) 3 Number of Quick Contractions In 10 3 Seconds PT-OP-J Posture/Palpation/Skin Start: 04/15/19 08:14 Freq: Status: Active Protocol: Document 04/22/19 12:47 LRN (Rec: 04/22/19 18:32 LRN [id number]) Posture Evaluation Position Standing Evaluation View All positions Head/C-Spine Posture Forward Head L-Spine Posture Increased Lordosis Scapula Posture (L) Elevated Pelvis Posture Anteriorly Tilted Weight Distribution Balanced Knee Posture (L) Genu Recurvatum,(R) Genu Recurvatum Palpation Assessment Location Leg length Longsit Palpation Location Equal leg lengths Leg length Supine Palpation Location L leg long Prone ASIS Palpation Location Low Left and outflared Standing ASIS Palpation Location Low Left Standing PSIS Palpation Location Low left PT-OP-K Range of Motion Start: 04/15/19 08:14 Freq: Status: Active Protocol: Document 05/06/19 12:48 LRN (Rec: 05/06/19 13:55 LRN [id number]) Hip Goniometric Range of Motion Hip Right Passive Testing Position Supine Flexion w/Knee Flexed 122 Straight Leg Raise 80 Abduction 60 Internal Rotation 45 External Rotation 65 Left Passive Testing Position Supine Flexion w/Knee Flexed 125 Straight Leg Raise 85 Abduction 55 Internal Rotation 40 External Rotation 65 PT-OP-M Strength Start: 04/15/19 08:14 Freq: Status: Active Protocol: Document 05/06/19 12:48 LRN (Rec: 05/06/19 13:55 LRN [id number]) Trunk Strength Trunk Manual Muscle Testing Testing Position Sitting Flexion 3+ Fair+ Extension 3+ Fair+ Rotation Left 3 Fair Rotation Right 5 Normal Lateral Flexion Left 2+ Poor+ Lateral Flexion Right 2+ Poor+ PT-OP-T Assessment and Plan Start: 04/15/19 08:14 Freq: Status: Active Protocol: Document 12/15/19 17:42 LRN (Rec: 12/15/19 17:51 LRN [id number]) Physical Therapy Assessment Goals Three Impairment Posterior PF weakness Short Term Goal (STG) Improve Wilson Stool Scale more consistently to a 4. STG Duration 06/02/19 (05/20/19: MET GOAL. Type 4-5 stools) Router Tender Goal (LTG) Pt will be able to avoid fecal incontinence by improving bowel function and maintaining continence until reaching bathroom. LTG Duration 08/20/19 (05/26/19: MET GOAL) Two Impairment Anterior PF weakness Short Term Goal (STG) Improve anterior PF strength to 2/5 with pt able to reach the bathroom without leaking. (06/03/19: PF strength at least 2/5) STG Duration 06/02/19 (06/03/19: MET GOAL, if listens to body, no leakage) Router Tender Goal (LTG) Improve anterior and lateral wall PF strength to 3/5 with pt able to avoid urinary leaking with a strong cough or sneeze. (06/03/19: PF strength at least 2/5) LTG Duration 08/20/19 (06/03/19: Very little leakage with a sneeze) One Impairment Lacks independent self care HEP. Router Tender Goal (LTG) Pt will be independent in a self care HEP. Pt goal is to improve bowel and urinary continence. Pt goal is to lift rectum to avoid surgery. LTG Duration 08/20/19 (05/13/19: Progressing ) Assessment Summary Assessment Pt was seen for 7 PT treatments prior to COVID-19 shutdown. The pt was notified the clinic had re-opened and was asked to return call to notify of her intentions for PT by end of week. The pt did not call back; therefore she is being discharged from therapy due to lack of attendance. Pt was unavailable for final assessment. Physical Therapy Plan Discharge Physical Therapy Discharge Reasons No Longer Attending PT Discharge Comments Message was left 11/08/19 for pt to call back regarding continuation of therapy. The pt has not returned call; therefore she is being discharged from therapy. The pt will need a new referral to return to PT. Thank you for your referral.
== END 2019-12-16 14:18 ==
LOC: PHYS 12:45
PROVIDERS: PCP Obstetrics & Gynecology; Visit Provider Surgery
DX: M62.82 Rhabdomyolysis (principal); M62.81 Muscle weakness (generalized); N39.46 Mixed incontinence; M54.5 Low back pain
CPT/HCPCS: 97110; 97162; 97530; 97535

== ENCOUNTER 2019-06-20 12:24 | Emergency (ER) | payer MEDICARE, OTHER, SELFPAY ==
[2019-06-20 12:37] VITALS: BP 189/90; PULSE 90; RESP 13; TEMP 36.4; O2SAT 99
--- NOTE | 2019-06-20 12:47 | ED.ALLEREA ---
HPI - Allergic Reaction <Mirta Alvarado PA-C - Last Filed: 06/20/19 18:09> General Chief complaint: Fever Stated complaint: Bad Reaction To Medication And Fever Time Seen by Provider: 06/20/19 12:47 Source: patient Mode of arrival: Ambulatory Limitations: language barrier History of Present Illness HPI narrative: This 63-year-old female comes to ED secondary to to 2 day history of subjective fever. She states that she was put on Cipro and Flagyl on Thursday related to rectal prolapse and ongoing symptoms related to that. It caused GI upset and diarrhea, so she stopped it yesterday and feels much better, however she noted some chills and feeling warm intermittently since later yesterday. She states that she has no cough, no wheezing or dyspnea. She has no sore throat, earache, sinus pain or other respiratory symptoms. She states she has ongoing allergy symptoms with some runny nose, burning eyes, scratchy throat. She takes medication for this and feels like the symptoms are unchanged. She denies any known exposures. She states that she did have a flu vaccine. She states she took Tylenol at home and right now fever symptoms seem better. She has been seen at medical facilities recently. Past Medical History Renal insufficiency Diabetes type II Crohn's disease Rectal prolapse Seasonal allergies Chronic lower back pain Past Surgical History Hysterectomy Right kidney transplant Related Data Home Medications Medication Instructions Recorded Confirmed lisinopril 10 mg PO QDAY #0 12/01/16 metformin [Glucophage XR] 500 mg PO BID #0 12/01/16 multivitamin [Multiple Vitamins] 1 tab PO QDAY #0 12/01/16 mycophenolate mofetil [CellCept] 250 mg PO BID #0 12/01/16 pravastatin 40 mg PO QPM #0 12/01/16 tacrolimus [Prograf] 3 mg PO BID #0 12/01/16 Allergies Allergy/AdvReac Type Severity Reaction Status Date / Time Sulfa (Sulfonamide Allergy Intermediate HIVES, RED Verified 06/20/19 12:44 Antibiotics) SKIN, ITCHY [SULFA (SULFONAMIDE ANTIBIOTICS)] Review of Systems <Mirta Alvaraod PA-C - Last Filed: 06/20/19 18:09> Review of Systems ROS Unobtainable: All systems reviewed & are unremarkable except as noted in HPI and below Patient History <Mirta Alvarado PA-C - Last Filed: 06/20/19 18:09> Social History Smoking Status: Never smoker Smoking Status: Never smoker Substance Use Type: does not use Exam <Mirta Alvarado PA-C - Last Filed: 06/20/19 18:09> Narrative Exam Narrative: GENERAL APPEARANCE: Patient sitting comfortably, appears well HEAD: No sinus TTP. EYES: PERRL, EOMI. ORAL CAVITY: Normal oropharynx. THROAT: Clear, minimal PND noted NECK/THYROID: Neck supple, full range of motion, no cervical lymphadenopathy. LUNGS: Clear to auscultation bilaterally, no cough on exam. HEART: RRR without murmur, nl S1, S2, no S3 or S4. Initial Vital Signs Initial Vital Signs: Vital Signs Temperature 97.6 F 06/20/19 12:37 Pulse Rate 90 06/20/19 12:37 Respiratory Rate 13 06/20/19 12:37 Blood Pressure 189/90 H 06/20/19 12:37 Pulse Oximetry 99 06/20/19 12:37 <Reji Melendez DO - Last Filed: 06/20/19 18:15> Initial Vital Signs Initial Vital Signs: Vital Signs Temperature 97.6 F 06/20/19 12:37 Pulse Rate 90 06/20/19 12:37 Respiratory Rate 13 06/20/19 12:37 Blood Pressure 189/90 H 06/20/19 12:37 Pulse Oximetry 99 06/20/19 12:37 Course <Mirta Alvarado PA-C - Last Filed: 06/20/19 18:09> Course Additional Information: Patient felt noted feeling a bit warm while here but remained afebrile during her stay and appears well. Advised treat as though she has possible exposure to campos virus though her symptoms may have been caused by medication reaction and her allergies. Advised isolating at home and given return precautions. She is agreeable Orders Ordered: ED Orders 06/20/19 13:05 Influenza A & B (PCR) Stat 06/20/19 13:11 XR chest 2V Stat Vital Signs Vital signs: Vital Signs - 8 hr 06/20/19 12:37 06/20/19 14:20 06/20/19 14:29 Temperature 97.6 F 98.4 F 98 F Pulse Rate 90 89 86 Respiratory Rate 13 21 16 Blood Pressure 189/90 H Blood Pressure [Right Arm] 167/79 H 167/79 H Pulse Oximetry 99 99 98 <Reji Melendez DO - Last Filed: 06/20/19 18:15> Orders Ordered: ED Orders 06/20/19 13:05 Influenza A & B (PCR) Stat 06/20/19 13:11 XR chest 2V Stat Vital Signs Vital signs: Vital Signs - 8 hr 06/20/19 12:37 06/20/19 14:20 06/20/19 14:29 Temperature 97.6 F 98.4 F 98 F Pulse Rate 90 89 86 Respiratory Rate 13 21 16 Blood Pressure 189/90 H Blood Pressure [Right Arm] 167/79 H 167/79 H Pulse Oximetry 99 99 98 MDM - Allergic Reaction <Mirta Alvarado PA-C - Last Filed: 06/20/19 18:09> Lab Data Attestation: I reviewed the patient's lab results. Labs: Lab Results 06/20/19 Range/Units 13:05 Influenza A (RT-PCR) Flu a negative (NEGATIVE) Influenza B (RT-PCR) Flu b negative (NEGATIVE) Imaging Data Chest x-ray: Radiologist's Impression: [address] [address] XRay Report Signed Patient: Yunier Metzger LMR#: [id number] : 4Acct:[id number] Age/Sex: 63 / FDate of Service: 06/20/19 Loc: ED Accession Number: [id number] Procedure: XR chest 2V Ordering Provider: Mirta Alvarado P.A-C PROCEDURE: XR CHEST 2V INDICATIONS: subjective fever, allergies TECHNIQUE: 2 views of the chest were acquired. COMPARISON: [facility], , CHEST 1 VIEW, 12/01/2016, 14:45. FINDINGS: Surgical changes and devices: None. Lungs and pleura: Lungs are clear. No pleural effusions or pneumothorax. Mediastinum: Mediastinal contours are normal. Heart size is normal. Bones and chest wall: No suspicious bony abnormalities. Soft tissues appear unremarkable. IMPRESSION: No evidence acute pulmonary process. Dictated by: Ranjit Randhawa M.D. on 06/20/2019 at 13:52 Approved by: Ranjit Randhawa M.D. on 06/20/2019 at 13:57 <Reji Melendez DO - Last Filed: 06/20/19 18:15> Lab Data Labs: Lab Results 06/20/19 Range/Units 13:05 Influenza A (RT-PCR) Flu a negative (NEGATIVE) Influenza B (RT-PCR) Flu b negative (NEGATIVE) Discharge Plan Departure Patient Disposition: Home Clinical Impression: Seasonal allergies, Adverse reaction to antibiotic, Person with feared complaint, no diagnosis made Fever Qualifiers: Fever type: unspecified Qualified Code(s): R50.9 - Fever, unspecified Discharge Date/Time: 06/20/19 14:36 Instructions: Allergic Rhinitis, DI for Fever (Symptom) -- Adult Activity Restrictions/Additional Instructions: The source of your feeling chilled and warm is not clear. You do not have any acute problems found on your chest x-ray and your influenza test is negative. The symptoms that you have been having are consistent with your seasonal allergies as you have described. The antibiotics may have contributed to your stomach upset as well, but since you are feeling better off of them, please remain off. Continue Tylenol as needed. We advise patients who are feeling ill with fever or respiratory symptoms to isolate at home until 72 hours after any symptoms are fully resolved and 7 days following the onset of symptoms since exposure is so common, but you do not appear to need testing at this time. As we talked about, you should return right away if you are feeling acutely worse, i.e. new onset of difficulty breathing or high fever not responding to Tylenol. Please follow-up with your specialist on whether you should start a different antibiotic. Prescriptions: No Action tacrolimus [Prograf] 1 MG capsule 3 mg PO BID Qty: 0 RF: 0 mycophenolate mofetil [CellCept] 250 MG capsule 250 mg PO BID Qty: 0 RF: 0 lisinopril 10 MG tablet 10 mg PO QDAY Qty: 0 RF: 0 metformin [Glucophage XR] 500 MG tablet extended release 24 hr 500 mg PO BID Qty: 0 RF: 0 multivitamin [Multiple Vitamins] 1 EACH tablet 1 tab PO QDAY Qty: 0 RF: 0 pravastatin 40 MG tablet 40 mg PO QPM Qty: 0 RF: 0 Referrals: Abelardo Robison DO [Primary Care Provider] - Stand Alone Forms: Work Release Note <Reji Melendez, DO - Last Filed: 06/20/19 18:15> Cosign ED Attending Cosignature Attestation: Dr Melendez Co-Sign Statement: I was available for consultation during this patient's emergency department visit. This chart is signed by myself for administrative purposes only. I did not have direct contact with this patient during this visit. They were seen independently by the APC.
--- NOTE | 2019-06-20 13:11 | DI.RAD.S_ITS ---
PROCEDURE: XR CHEST 2V INDICATIONS: subjective fever, allergies TECHNIQUE: 2 views of the chest were acquired. COMPARISON: [facility], , CHEST 1 VIEW, 12/01/2016, 14:45. FINDINGS: Surgical changes and devices: None. Lungs and pleura: Lungs are clear. No pleural effusions or pneumothorax. Mediastinum: Mediastinal contours are normal. Heart size is normal. Bones and chest wall: No suspicious bony abnormalities. Soft tissues appear unremarkable. IMPRESSION: No evidence acute pulmonary process. Dictated by: Ranjit Randhawa M.D. on 06/20/2019 at 13:52 Approved by: Ranjit Randhawa M.D. on 06/20/2019 at 13:57
[2019-06-20 13:48] LABS: Influenza A - CEPHEID Flu A NEGATIVE (NEGATIVE); Influenza B - CEPHEID Flu B NEGATIVE (NEGATIVE)
[2019-06-20 14:20] VITALS: BP 167/79; PULSE 89; RESP 21; TEMP 36.9; O2SAT 99
[2019-06-20 14:29] VITALS: BP 167/79; PULSE 86; RESP 16; TEMP 36.6; O2SAT 98
== END 2019-06-20 14:36 | disposition home or self-care (01) ==
PROVIDERS: Emergency Provider Internal Medicine; PCP Family Medicine
DX: R50.9 Fever, unspecified (principal); T78.40XA Allergy, unspecified, initial encounter
CPT/HCPCS: 71046; 87502; 99281; 99283

== ENCOUNTER 2019-11-19 20:00 | Inpatient (IN) | payer MEDICARE, OTHER, SELFPAY ==
[2019-11-19] VITALS (11 sets, daily range): BP systolic 179–227; BP diastolic 85–111; PULSE 67–74; RESP 17–29; TEMP 36.8; O2SAT 96–100; BMI 19.3
--- NOTE | 2019-11-19 20:02 | DI.RAD.S_ITS ---
PROCEDURE: XR CHEST 1V INDICATIONS: chest pain / heaviness TECHNIQUE: One view of the chest was acquired. COMPARISON: [facility], CR, XR CHEST 2V, 06/20/2019, 13:23. FINDINGS: Surgical changes and devices: Surgical clips in the gallbladder fossa. Overlying monitoring wires. Lungs and pleura: Lungs are clear. No pleural effusions or pneumothorax. Mediastinum: Mediastinal contours appear normal. Heart size is normal. Bones and chest wall: No suspicious bony lesions. Overlying soft tissues appear unremarkable. IMPRESSION: No acute cardiopulmonary disease. Dictated by: Ermelinda Chun M.D. on 11/19/2019 at 21:01 Approved by: Ermelinda Chun M.D. on 11/19/2019 at 21:01
[2019-11-19 20:56] LABS: Add Manual Diff / Slide Review NO; Basophils Absolute Auto 100 /uL (0-100); Basophils Percent Auto 0.8 % (0-2); Eosinophils Absolute Auto 700 /uL (0-450); Eosinophils Percent Auto 5.7 % (2-4); Hematocrit 32.7 % (36-46); Hemoglobin 10.9 g/dL (12.0-16.0); Lymphocytes Absolute Auto 5200 /uL (1100-4500); Lymphocytes Percent Auto 40.3 % (25-40); Mean Corpuscular HGB Conc 33.4 % (30-36); Mean Corpuscular Hemoglobin 28.1 PG (26-34); Mean Corpuscular Volume 84.1 fL (80-100); Monocytes Absolute Auto 900 /uL (0-900); Monocytes Percent Auto 6.8 % (3-14); Neutrophils Absolute Auto 6000 /uL (1500-7000); Neutrophils Percent Auto 46.4 % (50-75); Platelet Count 365 X10^3/uL (150-400); Red Blood Cell Count 3.89 X10^6/uL (4.0-5.2); Red Cell Distribution Width 12.9 % (11.6-14.8); White Blood Cell Count 12.9 X10^3/uL (4.5-11.0)
[2019-11-19 20:57] LABS: INR 0.9 (0.9-1.3); Prothrombin Time 10.7 SECONDS (10.1-12.7)
[2019-11-19 20:59] LABS: PTT Partial Thromboplastin Tim 32 SECONDS (26.4-36.2)
--- NOTE | 2019-11-19 21:02 | ED.CHESTPAIN ---
HPI - Chest Pain General Chief Complaint: Chest Pain Stated Complaint: chest heaviness Time Seen by Provider: 11/19/19 20:02 Source: patient and family Mode of arrival: Family Vehicle Limitations: no limitations History of Present Illness HPI narrative: 64F non smoker with history of AFib (on Eliquis), hypertension, hyperlipidemia, diabetes, renal transplant on tacrolimus presents with multiple family members in the chief complaint of ongoing chest pressure and heaviness. She has had this ongoing for upwards of 2 weeks and has had multiple visits to various emergency department including a recent hospitalization in [place] which resulted in a heart catheterization that was essentially clean. She denies any obvious provocation or palliation. She denies any radiation of her discomfort. Weak or lightheaded. She has had nausea but no vomiting. She denies any fever or chills. MD complaint: chest pain Onset (ago): day(s) Duration: constant Pain location: substernal Severity: moderate Quality: aching Pain radiation: none Relieving factors: nothing Exacerbating factors: nothing Associated symptoms: nausea Treatments prior to arrival chest pain: none Related Data On Oral Contraceptives: No Home Medications Medication Instructions Recorded Confirmed lisinopril 10 mg PO QDAY #0 12/01/16 metformin [Glucophage XR] 500 mg PO BID #0 12/01/16 multivitamin [Multiple Vitamins] 1 tab PO QDAY #0 12/01/16 mycophenolate mofetil [CellCept] 250 mg PO BID #0 12/01/16 pravastatin 40 mg PO QPM #0 12/01/16 tacrolimus [Prograf] 3 mg PO BID #0 12/01/16 metoprolol tartrate 12.5 mg PO BID 11/20/19 11/20/19 Allergies Allergy/AdvReac Type Severity Reaction Status Date / Time Sulfa (Sulfonamide Allergy Intermediate HIVES, RED Verified 06/20/19 12:44 Antibiotics) SKIN, ITCHY [SULFA (SULFONAMIDE ANTIBIOTICS)] Review of Systems Constitutional Constitutional: Denies chills, Denies fatigue, Denies fever(s), Denies frequent falls, Denies lethargy and Denies weakness Eyes Eyes: Denies change in vision, Denies eye discharge, Denies irritation and Denies loss of vision ENT Ears, Nose, Mouth, and Throat: Denies change in voice, Denies dizziness, Denies neck pain, Denies sore throat and Denies throat swelling Cardiovascular Cardiovascular: Reports chest pain, Denies irregular heart rhythm, Denies lightheadedness, Denies palpitations, Denies dyspnea, Denies dyspnea on exertion and Denies orthopnea Respiratory Respiratory: Denies cough, Denies dyspnea, Denies dyspnea on exertion and Denies wheezing Gastrointestinal Gastrointestinal: Reports abdominal pain, Denies change in bowel habits, Denies diarrhea, Reports nausea and Denies vomiting Musculoskeletal Musculoskeletal: Denies neck pain and Denies numbness Integumentary/Breasts Skin/Breast: Denies pruritus, Denies erythema, Denies rash and Denies wounds Neurologic Neurologic: Denies behavioral changes, Denies confusion, Denies dizziness, Denies frequent falls, Denies loss of vision, Denies numbness and Denies weakness Psychiatric Psychiatric: Denies anxiety, Denies behavioral changes, Denies confusion, Denies depression, Denies homicidal ideation and Denies suicidal ideation Endocrine Endocrine: Denies fatigue, Denies flushing and Denies palpitations Hematologic/Lymphatic Hematologic/Lymphatic: Denies easy bruising Allergic/Immunologic Allergic/Immunologic: Denies urticaria, Denies throat swelling and Denies wheezing Patient History Social History Smoking Status: Never smoker Smoking Status: Never smoker Substance Use Type: does not use Exam Narrative Exam Narrative: GENERAL: [64] year old patient appears stated age. Well-nourished, well-developed patient, in mild distress. HEAD: Atraumatic. Normocephalic. EYES: Pupils equal round and reactive. Extraocular motions intact. No scleral icterus. No injection or drainage. ENT: Nose without bleeding, purulent drainage. Throat without erythema, tonsillar hypertrophy or exudate. Airway patent. NECK: Trachea midline. Non tender CARDIOVASCULAR: Regular rate and rhythm without murmurs, gallops, or rubs. RESPIRATORY: Clear to auscultation. Breath sounds equal bilaterally. No wheezes, rales, or rhonchi. GASTROINTESTINAL: Abdomen soft, tender in her epigastrium r, nondistended. EXTREMITIES: No edema or joint tenderness. BACK: Nontender without deformity or crepitance. No flank tenderness. NEURO: AOx3. SKIN: No rash or erythema of visible areas Initial Vital Signs Initial Vital Signs: Vital Signs Temperature 98.3 F 11/19/19 20:10 Pulse Rate 68 11/19/19 20:10 Respiratory Rate 19 11/19/19 20:10 Blood Pressure 227/111 H 11/19/19 20:10 Pulse Oximetry 99 11/19/19 20:10 Course Course Course Narrative: EKG reviewed from florencia's visit as well as priors at [facility] and those at [facility]. He states the EKG seen today is unchanged from prior. With negative and unchanged EKG there is no need to transfer patient. She does need to be admitted however for treatment and evaluation of her pancreatitis. Orders Ordered: ED Orders 11/19/19 21:17 CT chest abd pel w con Stat 11/19/19 23:18 EKG-12 Lead Stat 11/19/19 23:23 Troponin I Stat 11/20/19 00:03 US abdomen limited Stat Sodium Chloride (Normal Saline 0.9%) 1,000 mls @ 150 mls/hr IV CONT DYLAN Last Infusion: 11/20/19 05:20 Dose: 0 mls/hr Documented by: Admin: 11/19/19 21:08 Dose: 150 mls/hr Documented by: RAQUEL Nitroglycerin (Nitrostat) 0.4 mg SL [id number] PRN PRN Reason: Chest Pain Last Admin: 11/20/19 00:10 Dose: 0.4 mg Documented by: JULIANA Vital Signs Vital signs: Vital Signs - 8 hr 11/19/19 22:30 11/19/19 23:04 11/19/19 23:05 Pulse Rate 72 73 72 Respiratory Rate 17 19 Blood Pressure 180/85 H 198/91 H Pulse Oximetry 99 99 99 11/19/19 23:41 11/20/19 00:10 11/20/19 00:15 Pulse Rate 72 80 92 H Respiratory Rate 20 18 Blood Pressure 192/90 H 221/107 H 175/79 H Pulse Oximetry 99 99 11/20/19 00:25 11/20/19 00:35 11/20/19 00:36 Pulse Rate 81 79 78 Respiratory Rate 22 23 20 Blood Pressure 195/99 H 179/85 H 179/85 H Pulse Oximetry 98 98 98 11/20/19 00:40 11/20/19 00:45 11/20/19 00:55 Pulse Rate 79 79 77 Respiratory Rate 18 15 16 Blood Pressure 195/88 H 183/84 H 145/77 H Pulse Oximetry 98 99 98 11/20/19 01:00 11/20/19 01:05 11/20/19 01:10 Pulse Rate 78 78 79 Respiratory Rate 14 15 15 Blood Pressure 179/81 H 160/69 H 145/79 H Pulse Oximetry 98 98 98 11/20/19 01:12 11/20/19 01:15 11/20/19 01:20 Pulse Rate 76 77 81 Respiratory Rate 18 15 18 Blood Pressure 145/79 H 165/81 H 170/90 H Pulse Oximetry 96 99 98 11/20/19 01:25 11/20/19 01:45 11/20/19 01:55 Pulse Rate 80 72 71 Respiratory Rate 20 15 14 Blood Pressure 165/79 H 187/83 H 176/84 H Pulse Oximetry 98 98 98 11/20/19 02:00 11/20/19 02:15 11/20/19 02:30 Pulse Rate 71 70 79 Respiratory Rate 15 18 19 Blood Pressure 165/78 H 156/73 H 161/77 H Pulse Oximetry 99 98 99 11/20/19 03:00 11/20/19 04:00 11/20/19 05:35 Pulse Rate 74 76 74 Respiratory Rate 19 18 20 Blood Pressure 158/71 H 141/72 H 133/66 Pulse Oximetry 100 98 97 MDM - Chest Pain Lab Data Result diagrams: 11/19/19 20:35 11/19/19 20:35 Labs: Lab Results 11/19/19 11/19/19 11/19/19 Range/Units 20:35 20:35 20:35 WBC 12.9 H (4.5-11.0) X10^3/uL RBC 3.89 L (4.0-5.2) X10^6/uL Hgb 10.9 L (12.0-16.0) g/dL Hct 32.7 L (36-46) % MCV 84.1 (80-100) fL MCH 28.1 (26-34) PG MCHC 33.4 (30-36) % RDW 12.9 (11.6-14.8) % Plt Count 365 (150-400) X10^3/uL Neut % (Auto) 46.4 L (50-75) % Lymph % (Auto) 40.3 H (25-40) % Howell % (Auto) 6.8 (3-14) % Eos % (Auto) 5.7 H (2-4) % Baso % (Auto) 0.8 (0-2) % Neut # (Auto) 6000 (7359-7130) /uL Lymph # (Auto) 5200 H (4565-8918) /uL Howell # (Auto) 900 (0-900) /uL Eos # (Auto) 700 H (0-450) /uL Baso # (Auto) 100 (0-100) /uL PT 10.7 (10.1-12.7) SECONDS INR 0.9 (0.9-1.3) APTT 32 (26.4-36.2) SECONDS D-Dimer 263 H (<230) ng/mL Sodium 130 L (137-145) mmol/L Potassium 4.2 (3.4-5.1) mmol/L Chloride 96 L (98-107) mmol/L Carbon Dioxide 25 (22-32) mmol/L BUN 15 (7-17) mg/dL Creatinine 0.70 (0.52-1.04) mg/dL Estimated GFR > 60.0 (>60) mL/min BUN/Creatinine Ratio 21.4 (6-22) Glucose 123 H (80-110) mg/dL Calcium 9.5 (8.4-10.2) mg/dL Total Bilirubin 0.6 (0.2-1.3) mg/dL AST 23 (14-36) IU/L ALT 20 (<35) IU/L Alkaline Phosphatase 64 (38-126) U/L Total Creatine Kinase 52 (30-135) U/L CK-MB (CK-2) TNP CK-MB (CK-2) Rel Index TNP Troponin I < 0.012 (0.01-0.034) ng/mL NT-Pro-B Natriuret Pep 339 H (<125) pg/mL Total Protein 7.7 (6.3-8.2) g/dL Albumin 4.4 (3.5-5.0) g/dL Globulin 3.3 (1.7-4.1) g/dL Albumin/Globulin Ratio 1.3 (1.0-2.8) Lipase 913 H (23-300) U/L 11/19/19 Range/Units 23:23 WBC (4.5-11.0) X10^3/uL RBC (4.0-5.2) X10^6/uL Hgb (12.0-16.0) g/dL Hct (36-46) % MCV (80-100) fL MCH (26-34) PG MCHC (30-36) % RDW (11.6-14.8) % Plt Count (150-400) X10^3/uL Neut % (Auto) (50-75) % Lymph % (Auto) (25-40) % Howell % (Auto) (3-14) % Eos % (Auto) (2-4) % Baso % (Auto) (0-2) % Neut # (Auto) (3133-3532) /uL Lymph # (Auto) (1266-4429) /uL Howell # (Auto) (0-900) /uL Eos # (Auto) (0-450) /uL Baso # (Auto) (0-100) /uL PT (10.1-12.7) SECONDS INR (0.9-1.3) APTT (26.4-36.2) SECONDS D-Dimer (<230) ng/mL Sodium (137-145) mmol/L Potassium (3.4-5.1) mmol/L Chloride (98-107) mmol/L Carbon Dioxide (22-32) mmol/L BUN (7-17) mg/dL Creatinine (0.52-1.04) mg/dL Estimated GFR (>60) mL/min BUN/Creatinine Ratio (6-22) Glucose (80-110) mg/dL Calcium (8.4-10.2) mg/dL Total Bilirubin (0.2-1.3) mg/dL AST (14-36) IU/L ALT (<35) IU/L Alkaline Phosphatase (38-126) U/L Total Creatine Kinase (30-135) U/L CK-MB (CK-2) CK-MB (CK-2) Rel Index Troponin I < 0.012 (0.01-0.034) ng/mL NT-Pro-B Natriuret Pep (<125) pg/mL Total Protein (6.3-8.2) g/dL Albumin (3.5-5.0) g/dL Globulin (1.7-4.1) g/dL Albumin/Globulin Ratio (1.0-2.8) Lipase (23-300) U/L Imaging Data CT scan - abdomen/pelvis: Radiologist's Impression: No acute process in the chest abdomen and pelvis. ECG Data Attestation: I personally reviewed and interpreted this ECG as follows: Interpretation: Normal sinus rhythm, rate 76. T-wave inversions in lateral leads (unchanged from prior per cardiology in [place]. Discharge Plan Departure Patient Disposition: Admitted As Inpatient Clinical Impression: Acute pancreatitis Qualifiers: Pancreatitis type: unspecified pancreatitis type Acute pancreatitis complication: unspecified Qualified Code(s): K85.90 - Acute pancreatitis without necrosis or infection, unspecified Referrals: Abelardo Robison DO [Primary Care Provider] -
[2019-11-19 21:04] LABS: Alanine Aminotransferase 20 IU/L (<35); Albumin 4.4 g/dL (3.5-5.0); Albumin Globulin Ratio 1.3 (1.0-2.8); Alkaline Phosphatase 64 U/L (38-126); Aspartate Aminotransferase 23 IU/L (14-36); BUN Creatinine Ratio 21.4 (6-22); Bilirubin Total 0.6 mg/dL (0.2-1.3); Blood Urea Nitrogen 15 mg/dL (7-17); Calcium 9.5 mg/dL (8.4-10.2); Carbon Dioxide 25 mmol/L (22-32); Chloride 96 mmol/L (98-107); Creatine Kinase 52 U/L (30-135); Estimated Glomerular Filt Rate > 60.0 mL/min (>60); Globulin 3.3 g/dL (1.7-4.1); Glucose 123 mg/dL (80-110); HEMOLYSIS 16 (0-50); Lipase 913 U/L (23-300); Potassium 4.2 mmol/L (3.4-5.1); Sodium 130 mmol/L (137-145); Total Protein 7.7 g/dL (6.3-8.2)
[2019-11-19] MEDS: SODIUM CHLORIDE 0.9% 1,000 ML 150 ML IV (21:08)
[2019-11-19 21:09] LABS: D Dimer 263 ng/mL (<230); NT-proBNP (BNP-Adult 18+) 339 pg/mL (<125)
--- NOTE | 2019-11-19 21:17 | DI.CT.S_ITS ---
PROCEDURE: CT CHEST ABD PEL W CON INDICATIONS: chest pain, abdomen pain, recent heart cath TECHNIQUE: After the administration of intravenous contrast, 5 mm thick sections acquired from the lung apices to the symphysis. 5 mm coronal and sagittal reformats were performed, with additional 7 mm MIP reformats through the lungs. For radiation dose reduction, the following was used: automated exposure control, adjustment of mA and/or kV according to patient size. COMPARISON: None. FINDINGS: Image quality: Excellent. CHEST: Lungs and pleura: No acute airspace opacities. No pleural effusions or pneumothorax. Central and peripheral airways appear patent and normal in caliber. Mediastinum: Heart size is normal. No pericardial effusion. No mediastinal or hilar adenopathy by size criteria. Thoracic aorta and central pulmonary arteries are normal in size. Trace atheromatous calcifications are present at the aortic arch. Esophagus is normal in caliber. No hiatal hernia. Chest wall: No axillary or supraclavicular adenopathy by size criteria. Thyroid gland is unremarkable . ABDOMEN: Solid organs: Liver is normal in size and enhancement. Gallbladder is surgically absent . Biliary system is non dilated. Pancreas enhances normally. Spleen is normal in size and enhancement. No adrenal nodules. The bilateral stebbins kidneys are markedly atrophic. A renal allograft is present within the right hemipelvis. No hydronephrosis. There are low-density cortical cystic lesions present. No nephrolithiasis. No hydroureter. Peritoneum and bowel: Bowel loops demonstrate normal wall thickness and caliber. The appendix is thin walled and gas filled. No free fluid or air. Nodes and vessels: No retroperitoneal or mesenteric adenopathy by size criteria. Aorta and inferior vena cava are normal in size. Miscellaneous: No ventral hernias. PELVIS: Genitourinary: Bladder wall thickness is normal. Miscellaneous: No inguinal hernias or adenopathy. Bones: No suspicious bony lesions. No vertebral body compression fractures. IMPRESSION: 1. No acute intra-abdominal findings. Normal appendix. These findings are concordant with the overnight interpretation. Dictated by: Jackie Kaba M.D. on 11/20/2019 at 7:36 Approved by: Jackie Kaba M.D. on 11/20/2019 at 7:38
[2019-11-19 21:45] LABS: Troponin I < 0.012 ng/mL (0.01-0.034)
[2019-11-19 23:55] LABS: Troponin I < 0.012 ng/mL (0.01-0.034)
[2019-11-20] VITALS (30 sets, daily range): BP systolic 133–221; BP diastolic 66–107; PULSE 69–92; RESP 14–23; TEMP 36.1–36.8; O2SAT 96–100; BMI 20.1
--- NOTE | 2019-11-20 00:03 | DI.US.S_ITS ---
PROCEDURE: US ABDOMEN LIMITED INDICATIONS: pain TECHNIQUE: Real-time scanning was performed of the abdominal and retroperitoneal organs, with image documentation. COMPARISON: None. FINDINGS: Liver: Liver is normal in size and increased in echotexture. Gallbladder: Gallbladder has been removed. Biliary ducts: Intrahepatic bile ducts are non-dilated. Extrahepatic bile duct caliber measures 8 mm. Normal is 6-7 mm or less in diameter, or 10 mm or less post-cholecystectomy. Pancreas: Visualized portions of the pancreas are sonographically normal. Kidneys: A transplanted right kidney is present with renal cyst measuring 23 x 21 x 22 mm. No obstruction. [place] right kidney is atrophic. It is also echogenic. IMPRESSION: 1. Nonobstructive transplanted right kidney. 2. Hepatic steatosis. Dictated by: Gabi Richardson M.D. on 11/21/2019 at 16:44 Approved by: Gabi Richardson M.D. on 11/21/2019 at 16:48
[2019-11-20] MEDS: NITROGLYCERIN 0.4 MG SL TAB SL (00:10)
[2019-11-20 06:49] LABS: Hemoglobin A1C% w Est Avg Glu 7.3 % (4.0-6.0)
[2019-11-20] MEDS: SODIUM CHLORIDE 0.9% 1,000 ML 100 ML IV (06:53)
--- NOTE | 2019-11-20 07:08 | PM.HP.1 ---
History of Present Illness History of Present Illness Date Patient Seen: 11/20/19 Time Patient Seen: 07:08 Chief complaint: chest heaviness Narrative: Yunier Metzger is a 63-year-old female with a history of a right kidney transplant in 2000, diabetes type 2, hyperlipidemia, hypertension, and a recent cardiac catheterization due to new onset atrial fibrillation with RVR presented with what she describes as ?feeling funny?. She was just discharged from [facility] after having undergone a cardiac catheterization which turned out to be normal and was determined to have had likely demand ischemia resulting in elevated troponins and EKG changes. During that time she stated that she was on heparin drip and ?it made me feel funny? and she needed to go the bathroom all the time. She states that she has a similar symptom now in addition to lower abdominal pain. She normally has had a history of diarrhea and was worked up for this at [facility] a number of years ago and was treated with a 1 time dose for C difficile. She has not had any further episodes of diarrhea as of recent. She states that she feels sweaty, chills, denies actual chest pain or pressure or palpitations, shortness of breath, or nausea. She does endorse having swollen fingers and toes. On November 08 or , the patient was transferred from [facility] atrial fibrillation with RVR and abnormal EKG changes, to [facility] telling him where she underwent underwent cardiac catheterization and echocardiogram both of which turned out to be normal. Her echocardiogram indicated a ?normal left ventricular size with mildly increased wall thickness and normal systolic function with an estimated EF of 60 65%.? At that time she was initiated on metoprolol and Eliquis at discharge however her med list does not currently indicate that she is taking Eliquis. The patient does take four medications which might contribute to the current diagnosis of acute pancreatitis as she has a lipase of 900. She takes provastatin, lisinopril, metformin, and tacrilimis, one of two of her anti transplant rejection medication In the ED they did a EKG which did appear to have changes compared to the EKG that was done at [facility]. Those 2 EKGs were reviewed by Cardiology at [facility] [place] and the plate maker zinc advised the ED provider that they did not feel that she was having symptoms of ACS, but was probably more likely due to her pancreatitis findings. Patient is afebrile, blood pressure 148/70, heart rate 78, respiratory rate of 18, oxygen saturation 97%, she is 36.2 kg with a BMI of 19. WBC is mildly elevated at 12.9, hemoglobin 10.9 and hematocrit 32.7, A/G driver license reviewing officer adjusted D-dimer was normal, sodium 130, potassium 4.2, chloride 96, bicarb 25, creatinine 0.70, BUN 15, GFR is greater than 60, glucose 123, hemoglobin A1c is 7.3, cardiac enzymes are normal, proBNP is 339, lipase is 913. Patient History Medical History (Updated 11/20/19 @ 07:15 by SHANTELL Brewer) Atrial fibrillation with rapid ventricular response (Chronic) Diabetes type 2, controlled (Chronic) Hyperlipidemia (Chronic) Type 2 [place] (myocardial infarction) (Acute) Surgical History History of bladder suspension procedure (Acute) Kidney transplant recipient (Acute) Tubal ligation status (Acute) Family & Social History Family History Father Lung cancer Mother Kidney disease Sister Myocardial infarct Brother Myocardial infarct Safety & Behavioral: Feels Safe in Current Yes Environment Tobacco & Substance use: Smoking Status Never smoker Substance Use Type does not use Meds Home Medications and Allergies Home Medications Medication Instructions Recorded Confirmed Type lisinopril 10 mg PO QDAY #0 12/01/16 History metformin [Glucophage XR] 500 mg PO BID #0 12/01/16 History multivitamin [Multiple Vitamins] 1 tab PO QDAY #0 12/01/16 History mycophenolate mofetil [CellCept] 250 mg PO BID #0 12/01/16 History pravastatin 40 mg PO QPM #0 12/01/16 History tacrolimus [Prograf] 3 mg PO BID #0 12/01/16 History metoprolol tartrate 12.5 mg PO BID 11/20/19 11/20/19 History Allergies Allergy/AdvReac Type Severity Reaction Status Date / Time Sulfa (Sulfonamide Allergy Intermediate HIVES, RED Verified 06/20/19 12:44 Antibiotics) SKIN, ITCHY [SULFA (SULFONAMIDE ANTIBIOTICS)] Review of Systems Review of Systems ROS: Yes All systems reviewed with the patient and are negative except as otherwise documented Exam Vital Signs (past 8 hours): - 11/19/19 23:41 11/20/19 00:10 11/20/19 00:15 Pulse Rate 72 80 92 H Respiratory Rate 20 18 Blood Pressure 192/90 H 221/107 H 175/79 H Pulse Oximetry 99 99 11/20/19 00:25 11/20/19 00:35 11/20/19 00:36 Pulse Rate 81 79 78 Respiratory Rate 22 23 20 Blood Pressure 195/99 H 179/85 H 179/85 H Pulse Oximetry 98 98 98 11/20/19 00:40 11/20/19 00:45 11/20/19 00:55 Pulse Rate 79 79 77 Respiratory Rate 18 15 16 Blood Pressure 195/88 H 183/84 H 145/77 H Pulse Oximetry 98 99 98 11/20/19 01:00 11/20/19 01:05 11/20/19 01:10 Pulse Rate 78 78 79 Respiratory Rate 14 15 15 Blood Pressure 179/81 H 160/69 H 145/79 H Pulse Oximetry 98 98 98 11/20/19 01:12 11/20/19 01:15 11/20/19 01:20 Pulse Rate 76 77 81 Respiratory Rate 18 15 18 Blood Pressure 145/79 H 165/81 H 170/90 H Pulse Oximetry 96 99 98 11/20/19 01:25 11/20/19 01:45 11/20/19 01:55 Pulse Rate 80 72 71 Respiratory Rate 20 15 14 Blood Pressure 165/79 H 187/83 H 176/84 H Pulse Oximetry 98 98 98 11/20/19 02:00 11/20/19 02:15 11/20/19 02:30 Pulse Rate 71 70 79 Respiratory Rate 15 18 19 Blood Pressure 165/78 H 156/73 H 161/77 H Pulse Oximetry 99 98 99 11/20/19 03:00 11/20/19 04:00 11/20/19 05:35 Pulse Rate 74 76 74 Respiratory Rate 19 18 20 Blood Pressure 158/71 H 141/72 H 133/66 Pulse Oximetry 100 98 97 11/20/19 06:43 Pulse Rate 78 Respiratory Rate 18 Blood Pressure 148/70 H Pulse Oximetry 97 Oxygen Delivery Method Room Air Narrative Exam Narrative: Gen: Alert, oriented, petite 63 y.o. [place] female, NAD HEENT: normocephalic, atraumatic, conjunctiva clear, sclera non-icteric, oral mucosa pink and moist Neck: supple, full ROM, no JVD, trachea is midline Resp: Lungs CTA, non-labored breathing CV: RRR, no murmur or rubs Abd: soft, diffusely tender lower abdomen, normoactive BTs Skin: no lesions or rashes, dry and intact Neuro: Alert and oriented X 4 w/no focal deficits. Speech clear and coherent. Extremities: moves all 4 extremities, is ambulatory, negative Karma?s sign Psyche: normal mood and affect. Objective Labs Result Diagrams: 11/19/19 20:35 11/19/19 20:35 Labs: Laboratory Results - last 24 hr 11/19/19 11/19/19 11/19/19 20:35 20:35 20:35 WBC 12.9 H RBC 3.89 L Hgb 10.9 L Hct 32.7 L MCV 84.1 MCH 28.1 MCHC 33.4 RDW 12.9 Plt Count 365 Neut % (Auto) 46.4 L Lymph % (Auto) 40.3 H Mcduffie % (Auto) 6.8 Eos % (Auto) 5.7 H Baso % (Auto) 0.8 Neut # (Auto) 6000 Lymph # (Auto) 5200 H Mcduffie # (Auto) 900 Eos # (Auto) 700 H Baso # (Auto) 100 PT 10.7 INR 0.9 APTT 32 D-Dimer 263 H Sodium 130 L Potassium 4.2 Chloride 96 L Carbon Dioxide 25 BUN 15 Creatinine 0.70 Estimated GFR > 60.0 BUN/Creatinine Ratio 21.4 Glucose 123 H Hemoglobin A1c Calcium 9.5 Total Bilirubin 0.6 AST 23 ALT 20 Alkaline Phosphatase 64 Total Creatine Kinase 52 CK-MB (CK-2) TNP CK-MB (CK-2) Rel Index TNP Troponin I < 0.012 NT-Pro-B Natriuret Pep 339 H Total Protein 7.7 Albumin 4.4 Globulin 3.3 Albumin/Globulin Ratio 1.3 Lipase 913 H 11/19/19 11/20/19 23:23 06:20 WBC RBC Hgb Hct MCV MCH MCHC RDW Plt Count Neut % (Auto) Lymph % (Auto) Mcduffie % (Auto) Eos % (Auto) Baso % (Auto) Neut # (Auto) Lymph # (Auto) Mcduffie # (Auto) Eos # (Auto) Baso # (Auto) PT INR APTT D-Dimer Sodium Potassium Chloride Carbon Dioxide BUN Creatinine Estimated GFR BUN/Creatinine Ratio Glucose Hemoglobin A1c 7.3 H Calcium Total Bilirubin AST ALT Alkaline Phosphatase Total Creatine Kinase CK-MB (CK-2) CK-MB (CK-2) Rel Index Troponin I < 0.012 NT-Pro-B Natriuret Pep Total Protein Albumin Globulin Albumin/Globulin Ratio Lipase Assessment & Plan Assessment & Plan narrative: Yunier Metzger will be admitted as an inpatient for further management of an acute pancreatitis and ruled out for a UTI. Acute pancreatitis, present on admission -NPO -IV NS at 100 ml/hour -fasting lipids pending Lower abdominal pain, acute, present on admission -Urinalysis pending, if positive, please start IV ceftriaxone Renal transplant status, chronic -Continue home dose of prograf, patient's family member will need to bring in -Continue home dose of tacrolimus 3 mg po bid -Recommend a conversaton with Dr. Melendrez, her wearing apparel shaker regarding medication changes Diabetes type 2 suboptimal control with an A1c of 7.3 -Holding metformin -Glucose checks q6h as she is NPO Atrial fibrillation, recently diagnosed on 11/11/2019 -Continue home dose of metoprolol tartrate 12.5 mg po bid -Patient was to be anti-coagualated on Eliquis, but do not believe she has started taking. She is written for 2.5 mg bid, so will start her today. -Cardiac monitoring Hyperlipidemia -Holding provastatin as this may be contributing to her elevated lipase Plan: Consults: none Patient is admitted under inpatient status with expected length of stay greater than 2 midnights due to severity of presenting symptoms, risk of adverse event, and complexity of treatment plan. FEN: NS at 100 ml/hour, NPO, BMP and magnesium in the am. VTE prophylaxis: Bilateral SCDs She is initiated on eliquis today Dispo: likely discharge to home Code Status: Full code as discussed with patient COVID-19 COVID-19 status: Result pending Result date/Date tested (Pos, Neg/Pending): 11/20/19 Quality VTE Deep Vein Thrombosis/Pulmonary Embolism Present on Admission: No
--- NOTE | 2019-11-20 07:27 | PC.NURSE ---
Alert and oriented. 98%RA. oriented pt to the room. IVF infusing. bed alarm active.
[2019-11-20 07:44] LABS: COVID19 -Nasal RAPID Negative (Negative)
[2019-11-20] MEDS: TACROLIMUS 0.5 MG CAPSULE 3 MG PO (09:09)
[2019-11-20] MEDS: MYCOPHENOLATE MOFETIL 500 MG TABLET 250 MG PO (09:11)
[2019-11-20] MEDS: METOPROLOL IR 25 MG TABLET 12.5 MG PO (09:14)
[2019-11-20 09:42] LABS: Bacteria Urine None Seen; RBC Urine None Seen (0-5/HPF); WBC Urine None Seen (0-5/HPF)
[2019-11-20 09:44] LABS: Appearance Urine UA CLEAR; Bilirubin Urine UA NEGATIVE (NEGATIVE); Color Urine UA YELLOW; Glucose Urine UA NEGATIVE (Negative); Ketones Urine UA NEGATIVE (NEGATIVE); Leukocyte Esterase Urine UA TRACE (NEGATIVE); Nitrite Urine UA NEGATIVE (Negative); Occult Blood Urine UA NEGATIVE (Negative); Protein Urine UA NEGATIVE (Negative); Urobilinogen Urine UA 0.2 E.U./dL (0.2)
[2019-11-20 09:47] LABS: Culture Indicated Urine Cult Not Indicated; Urine Comments Microscopic Normal
--- NOTE | 2019-11-20 11:27 | CM.DANOTE ---
Discharge Planning/Care Management DCP: assessment: case received, EMR reviewed and met with pt and her daughter, Noreen, at bedside. Introduced self and role. Pt is a 64 year old female who admitted early this mornin to care of hospitalist team. PCP: Abelardo Robison Payer: [facility] and Medicare. Admission status: in review: per UR BUCKY Velazquez will see pt today. He states her primary diagnosis is pancreatitis and tests are in process. At time of rounds he anticipated pt would likely be ready for d/c tomorrow to home setting. Pt confirms she gets around using a cane much of the time. She has been told by her PCP not to drive, her works and she is homebound. She has never had home health services and would be open to this. Noreen adds that pt has not been doing very well when home by herself and they would like help looking at options for care. She explains that she would like help with a MARCIAL application and she is hoping to then be able to be the assigned MARCIAL provider. Explained that process and discussed HH RN/OT/PT and SENIOR UNIX ADMINISTRATOR (who would be able to sit with the family and assist in filling out the application etc). They are aware that this is not a rapid process. Both do agree that having a nurse come in to look at medications and check pt medically, therapists to do a home safety eval and help pt to improve functional abilities is setting of her chronic cormorbidities would be very helpful as well as the certified social workers in health care for the MARCIAL process. Discussed with Dr. Velazquez who agrees with same. HH order obtained. Face/Face document completed. agency list discussed and with the limitations of a Thursday. Decision: Signature HH: [facility] has accepted the referral and ER, H&P, F/F and HH orders are faxed as well as face sheet. will need a progress note from Dr. Velazquez to show that he did see pt on day F/F was signed. P: DCP team will be following. P: at this time: home with HHS and family support when stable for same. Advanced directive, confirm from FAMILY Start: 11/20/19 11:14 Freq: Q24H Status: Active Protocol: Document 11/20/19 11:15 YAD (Rec: 11/20/19 11:15 YAD [id number]) Advance Directive, confirm on record Time 11:15 Person contacted Pt's Daughter Copy received No CM Discharge Assessment Start: 11/20/19 11:26 Freq: Status: Active Protocol: Document 11/20/19 11:26 ITV (Rec: 11/20/19 11:27 ITV [id number]) Discharge Planning Assessment Advance Directives? No History Provided By Patient,Medical Record and daughterNoreen (at bedside) Prior Living Arrangements House Household Members spouse Comment Kai: works DME Already Rented / Owned Cane Referrals Initiated Home Health Review Status In Process
[2019-11-20 12:32] LABS: Cholesterol 149 mg/dL (140-199); HDL Cholesterol 42 mg/dL (40-60); LDL Cholesterol Calculated 57 mg/dL (<100); Triglycerides 250 mg/dL (35-150)
[2019-11-20] MEDS: INSULIN ASPART 100 UNIT/ML INSULN PEN SUBCUT ×2 (13:39→16:53)
[2019-11-20] MEDS: LOSARTAN 25 MG TABLET PO (13:39)
--- NOTE | 2019-11-20 15:47 | P.DS_ITS ---
History of Present Illness History of Present Illness Date Patient Seen: 11/20/19 Time Patient Seen: 15:47 Chief complaint: chest heaviness Narrative: As per SHANTELL Brewer: Yunier Metzger is a 63-year-old female with a history of a right kidney transplant in 2000, diabetes type 2, hyperlipidemia, hypertension, and a recent cardiac catheterization due to new onset atrial fibrillation with RVR presented with what she describes as ?feeling funny?. She was just discharged from [facility] after having undergone a cardiac catheterization which turned out to be normal and was determined to have had likely demand ischemia resulting in elevated troponins and EKG changes. During that time she stated that she was on heparin drip and ?it made me feel funny? and she needed to go the bathroom all the time. She states that she has a similar symptom now in addition to lower abdominal pain. She normally has had a history of diarrhea and was worked up for this at [facility] a number of years ago and was treated with a 1 ti me dose for C difficile. She has not had any further episodes of diarrhea as of recent. She states that she feels sweaty, chills, denies actual chest pain or pressure or palpitations, shortness of breath, or nausea. She does endorse having swollen fingers and toes. On November 08 or , the patient was transferred from [facility] atrial fibrillation with RVR and abnormal EKG changes, to [facility] telling him where she underwent underwent cardiac catheterization and echocardiogram both of which turned out to be normal. Her echocardiogram indicated a ?normal left ventricular size with mildly increased wall thickness and normal systolic function with an estimated EF of 60 65%.? At that time she was initiated on metoprolol and Eliquis at discharge however her med list does not currently indicate that she is taking Eliquis. The patient does take four medications which might contribute to the current diagnosis of acute pancreatitis as she has a lipase of 900. She takes provastatin, lisinopril, metformin, and tacrilimis, one of two of her anti transplant rejection medication In the ED they did a EKG which did appear to have changes compared to the EKG that was done at [facility]. Those 2 EKGs were reviewed by Cardiology at [facility] and the area secretary advised the ED provider that they did not feel that she was having symptoms of ACS, but was probably more likely due to her pancreatitis findings. Patient is afebrile, blood pressure 148/70, heart rate 78, respiratory rate of 18, oxygen saturation 97%, she is 36.2 kg with a BMI of 19. WBC is mildly elevated at 12.9, hemoglobin 10.9 and hematocrit 32.7, A/G nurse practitioner physicians assistant adjusted D-dimer was normal, sodium 130, potassium 4.2, chloride 96, bicarb 25, creatinine 0.70, BUN 15, GFR is greater than 60, glucose 123, hemoglobin A1c is 7.3, cardiac enzymes are normal, proBNP is 339, lipase is 913. Discharge Providers Provider Date of admission: 11/20/19 06:16 Discharge Date: 11/20/19 Primary care physician: Abelardo Robison DO Consults: 11/20/19 10:56 Consult to Home Health Routine Comment: LEGAL SUPPORT ANALYST to help pt/family with MARCIAL application Reason For Exam: RN/PT/OT/LEGAL SUPPORT ANALYST at d/c Discharge provider: Nic Velazquez DO Summary Hospital Course Discharge Diagnosis: Elevated lipase, present on admission Renal transplant status, chronic Diabetes type 2 with an A1c of 7.3 Atrial fibrillation, unspecified type, recently diagnosed on 11/11/2019 Hyperlipidemia Hospital Course: This is a 64-year-old female who presented with vague symptoms of malaise. She was admitted over concern for possible pancreatitis given an elevated lipase of a approximately 900. She had no complaints of abdominal pain and CT imaging did not show pancreatic inflammation. Elevated lipase is likely in the setting of a medications, however it is unclear which 1 it is and I doubt this is leading to her symptoms. Symptoms are likely due to newly prescribed medications including lisinopril, metformin, metoprolol, as well as her chronic kidney transplant medicines. All these medications are seemingly needed given her recent discharge from a hospitalization where she had a cardiac catheterization and was found to have atrial fibrillation. Lisinopril was discontinued as patient felt strongly that her symptoms were possibly due to this medication, and so this was changed over to losartan which she tolerated well at 25 mg. Her blood pressure was slightly elevated into the 150s upon discharge, but much improved from the 180s during her initial time here. Patient was initially NPO over concern for pancreatitis, however she does not meet the clinical definition as she only had an elevated lipase value. She was discharged home after she tolerated diet and was feeling much improved. She will follow-up with her primary care provider and section forest fire warden for further discussion about her elevated lipase. Exam Vital Signs (past 8 hours): - 11/20/19 09:34 11/20/19 12:00 11/20/19 13:39 Temperature 98.0 F Pulse Rate 69 79 Respiratory Rate 16 Blood Pressure 162/89 H 162/87 H Pulse Oximetry 97 100 11/20/19 14:19 Temperature Pulse Rate 85 Respiratory Rate Blood Pressure 150/77 H Pulse Oximetry Oxygen Delivery Method Room Air Oxygen Flow Rate 0 Narrative Exam Narrative: GENERAL APPEARANCE: Well developed, well nourished, in no acute distress. SKIN: Inspection of the skin reveals no rashes, ulcerations or petechiae. HEENT: Normocephalic atraumatic, extraocular muscles are intact, oropharynx is clear and mucous membranes are moist, neck is supple without adenopathy NECK: Supple and symmetric. There was no thyroid enlargement, and no tenderness, or masses were felt. CHEST: Normal AP diameter and normal contour without any kyphoscoliosis. LUNGS: Auscultation of the lungs revealed no wheezes, rhonchi, or rales. CARDIOVASCULAR: There was a regular rate and rhythm without any murmurs, gallops, rubs. Peripheral pulses were 2+ and symmetric. ABDOMEN: Soft and nontender with normal bowel sounds. No ascites was noted. MUSCULOSKELETAL: There was no tenderness or effusions noted. Muscle strength and tone were normal. EXTREMITIES: No cyanosis, clubbing or edema. NEUROLOGIC: Alert and oriented x 3. Normal affect. Gait was normal. Strength is +5/5 in the Upper Extremities and Lower Extremities Bilaterally. Sensation to touch was normal. Objective Labs Result Diagrams: 11/19/19 20:35 11/19/19 20:35 Labs: Laboratory Results - last 24 hr 11/19/19 11/19/19 11/19/19 20:35 20:35 20:35 WBC 12.9 H RBC 3.89 L Hgb 10.9 L Hct 32.7 L MCV 84.1 MCH 28.1 MCHC 33.4 RDW 12.9 Plt Count 365 Neut % (Auto) 46.4 L Lymph % (Auto) 40.3 H [place] % (Auto) 6.8 Eos % (Auto) 5.7 H Baso % (Auto) 0.8 Neut # (Auto) 6000 Lymph # (Auto) 5200 H [place] # (Auto) 900 Eos # (Auto) 700 H Baso # (Auto) 100 PT 10.7 INR 0.9 APTT 32 D-Dimer 263 H Sodium 130 L Potassium 4.2 Chloride 96 L Carbon Dioxide 25 BUN 15 Creatinine 0.70 Estimated GFR > 60.0 BUN/Creatinine Ratio 21.4 Glucose 123 H Hemoglobin A1c Calcium 9.5 Total Bilirubin 0.6 AST 23 ALT 20 Alkaline Phosphatase 64 Total Creatine Kinase 52 CK-MB (CK-2) TNP CK-MB (CK-2) Rel Index TNP Troponin I < 0.012 NT-Pro-B Natriuret Pep 339 H Total Protein 7.7 Albumin 4.4 Globulin 3.3 Albumin/Globulin Ratio 1.3 Triglycerides Cholesterol LDL Cholesterol, Calc HDL Cholesterol Lipase 913 H Urine Color Urine Appearance Urine pH Ur Specific Eleva Urine Protein Urine Glucose (UA) Urine Ketones Urine Occult Blood Urine Nitrate Urine Bilirubin Urine Urobilinogen Ur Leukocyte Esterase Urine RBC Urine WBC Urine Bacteria Ur Culture Indicated? Micro UA Comment COVID-19 PCR 11/19/19 11/20/19 11/20/19 23:23 06:20 06:35 WBC RBC Hgb Hct MCV MCH MCHC RDW Plt Count Neut % (Auto) Lymph % (Auto) [place] % (Auto) Eos % (Auto) Baso % (Auto) Neut # (Auto) Lymph # (Auto) [place] # (Auto) Eos # (Auto) Baso # (Auto) PT INR APTT D-Dimer Sodium Potassium Chloride Carbon Dioxide BUN Creatinine Estimated GFR BUN/Creatinine Ratio Glucose Hemoglobin A1c 7.3 H Calcium Total Bilirubin AST ALT Alkaline Phosphatase Total Creatine Kinase CK-MB (CK-2) CK-MB (CK-2) Rel Index Troponin I < 0.012 NT-Pro-B Natriuret Pep Total Protein Albumin Globulin Albumin/Globulin Ratio Triglycerides Cholesterol LDL Cholesterol, Calc HDL Cholesterol Lipase Urine Color Urine Appearance Urine pH Ur Specific Eleva Urine Protein Urine Glucose (UA) Urine Ketones Urine Occult Blood Urine Nitrate Urine Bilirubin Urine Urobilinogen Ur Leukocyte Esterase Urine RBC Urine WBC Urine Bacteria Ur Culture Indicated? Micro UA Comment COVID-19 PCR Negative 11/20/19 11/20/19 08:09 09:37 WBC RBC Hgb Hct MCV MCH MCHC RDW Plt Count Neut % (Auto) Lymph % (Auto) [place] % (Auto) Eos % (Auto) Baso % (Auto) Neut # (Auto) Lymph # (Auto) [place] # (Auto) Eos # (Auto) Baso # (Auto) PT INR APTT D-Dimer Sodium Potassium Chloride Carbon Dioxide BUN Creatinine Estimated GFR BUN/Creatinine Ratio Glucose Hemoglobin A1c Calcium Total Bilirubin AST ALT Alkaline Phosphatase Total Creatine Kinase CK-MB (CK-2) CK-MB (CK-2) Rel Index Troponin I NT-Pro-B Natriuret Pep Total Protein Albumin Globulin Albumin/Globulin Ratio Triglycerides 250 H Cholesterol 149 LDL Cholesterol, Calc 57 HDL Cholesterol 42 Lipase Urine Color Yellow Urine Appearance Clear Urine pH 7.0 Ur Specific Eleva 1.010 Urine Protein Negative Urine Glucose (UA) Negative Urine Ketones Negative Urine Occult Blood Negative Urine Nitrate Negative Urine Bilirubin Negative Urine Urobilinogen 0.2 Ur Leukocyte Esterase Trace H Urine RBC None seen Urine WBC None seen Urine Bacteria None seen Ur Culture Indicated? Cult not indicated Micro UA Comment Microscopic normal COVID-19 PCR Discharge Plan Discharge Plan Patient Disposition: Home Discharge comment: You were admitted to the hospital with an elevated lipase level, however he did not have evidence of inflammation in your pancreas on CT imaging in you did not have any abdominal pain. This is likely elevated because of 1 of the medicines you are taking. You should discuss this finding with your section forest fire warden or primary care provider. Your symptoms are as consistent with side effects of some of your blood pressure medications. You have already reduced her metoprolol, and your lisinopril will be switched to losartan. You have a stop taking apixaban and are instead continuing on aspirin daily. No other medication adjustments are necessary at this time. Please follow-up with your primary care provider and section forest fire warden as previously planned. Discharge orders & Medications Prescriptions: New losartan 25 mg tablet 25 mg PO DAILY 30 Days Qty: 30 RF: 0 Continued tacrolimus [Prograf] 1 MG capsule 3 mg PO BID Qty: 0 RF: 0 mycophenolate mofetil [CellCept] 250 MG capsule 250 mg PO BID Qty: 0 RF: 0 metformin [Glucophage XR] 500 MG tablet extended release 24 hr 500 mg PO BID Qty: 0 RF: 0 multivitamin [Multiple Vitamins] 1 EACH tablet 1 tab PO QDAY Qty: 0 RF: 0 pravastatin 40 MG tablet 40 mg PO QPM Qty: 0 RF: 0 metoprolol tartrate 25 mg Tablet 12.5 mg PO BID RF: 0 Discontinued lisinopril 10 MG tablet 10 mg PO QDAY Qty: 0 RF: 0 Follow up/Referrals: Abelardo Robison DO [Primary Care Provider] - Discharge Health Status Health Concerns: elevated lipase Diet/Activity/Treatments Diet: Diet as Tolerated Activity: as tolerated Visit Report/Discharge Packet Visit Report Forms: Patient Portal/API, Stroke Signs & Symptoms Discharge Data Primary Care Provider: Aeblardo Robison Quality VTE Deep Vein Thrombosis/Pulmonary Embolism Present on Admission: No
--- NOTE | 2019-11-20 17:45 | PC.NURSE ---
Discharge Note Patient A&O, VSS, RA, no complaints of pain or discomfort. Discharge packet reviewed with patient no questions/concerns. Patient reminded to picket labor union prescriptions at preferred pharmacy. PIV/tele discontinued. All belongings packed and given to patient along with discharge packet. Patient taken down via wheelchair by PRINTED CIRCUIT BOARD PREASSEMBLER to POV.
--- NOTE | 2019-11-21 08:00 | CM.DPC ---
DCP Cont: Patient discharged home yesterday. Went ahead and faxed over discharge summary to [facility], as face to face, orders, referral information was faxed yesterday. Patient will receive all disciplines except speech. Felisha Newman RN/Remedial Project Manager
== END 2019-11-20 17:30 | disposition home health service (06) | DRG 948 ==
LOC: ED 11-20 05:47 → AC 11-20 06:16
PROVIDERS: Admitting Provider Nurse Practitioner Family; Emergency Provider Emergency Medicine; PCP Family Medicine; Referring Provider Emergency Medicine; Visit Provider Nurse Practitioner Family
DX: R53.81 Other malaise (principal); Z94.0 Kidney transplant status; R74.8 Abnormal levels of other serum enzymes; I48.91 Unspecified atrial fibrillation; T46.4X5A Adverse effect of angiotensin-converting-enzyme inhibitors, initial encounter; E11.9 Type 2 diabetes mellitus without complications; E78.5 Hyperlipidemia, unspecified; I10 Essential (primary) hypertension; Z79.84 Long term (current) use of oral hypoglycemic drugs; Z11.59 Encounter for screening for other viral diseases
CPT/HCPCS: 36415; 71045; 71260; 74177; 76705; 80053; 80061; 81001; 82550; 82962; 83036; 83690; 83880; 84484; 85025; 85379; 85610; 85730; 87635; 93005; 93010; 96360; 96361; 99284; J7507; Q9967

== ENCOUNTER 2019-12-21 11:56 | Emergency (ER) | payer MEDICARE, OTHER, SELFPAY ==
[2019-11-20 10:54] VITALS: BMI 20.1
[2019-12-21] VITALS (7 sets, daily range): BP systolic 175–217; BP diastolic 83–106; PULSE 71–87; RESP 13–28; O2SAT 93–99; BMI 21.0
--- NOTE | 2019-12-21 12:32 | ED.GENADULT ---
HPI - General Adult General Chief complaint: Abdominal Pain Stated complaint: heart pounding, states problem with pancreas Time Seen by Provider: 12/21/19 12:23 Source: patient Mode of arrival: Ambulatory Limitations: no limitations History of Present Illness HPI narrative: 64-year-old woman post kidney transplant 2000, paroxysmal atrial fibrillation with rapid ventricular response (on 12.5 mg metoprolol and Eliquis), recent normal cardiac catheterization and echocardiogram at [facility], type 2 diabetes, hypertension, hyperlipidemia presents with complaints that her heart is pounding. She notes a fluttering/pounding sensation that lasts seconds only that is been bothering her intermittently for the past 24 hours. She does not describe specific chest pain, pressure, orthopnea, fevers, cough, abdominal pain, change to bowel or bladder habits or any acute neurologic changes. Related Data Home Medications Medication Instructions Recorded Confirmed metformin [Glucophage XR] 500 mg PO BID #0 12/01/16 multivitamin [Multiple Vitamins] 1 tab PO QDAY #0 12/01/16 mycophenolate mofetil [CellCept] 250 mg PO BID #0 12/01/16 pravastatin 40 mg PO QPM #0 12/01/16 tacrolimus [Prograf] 3 mg PO BID #0 12/01/16 metoprolol tartrate 12.5 mg PO BID 11/20/19 11/20/19 Allergies Allergy/AdvReac Type Severity Reaction Status Date / Time Sulfa (Sulfonamide Allergy Intermediate HIVES, RED Verified 12/21/19 12:18 Antibiotics) SKIN, ITCHY [SULFA (SULFONAMIDE ANTIBIOTICS)] Review of Systems Review of Systems Narrative: Remainder of review of systems including constitutional, ENT, cardiovascular, respiratory, GI, , musculoskeletal, skin, neurologic and psychiatric systems reviewed and are unremarkable except as noted in HPI. Patient History Medical History Atrial fibrillation with rapid ventricular response (Chronic) Diabetes type 2, controlled (Chronic) Hyperlipidemia (Chronic) Type 2 [place] (myocardial infarction) (Acute) Surgical History History of bladder suspension procedure (Acute) Kidney transplant recipient (Acute) Tubal ligation status (Acute) Family History Father Lung cancer Mother Kidney disease Sister Myocardial infarct Brother Myocardial infarct Social History household members: spouse Smoking Status: Never smoker alcohol intake: never Smoking Status: Never smoker alcohol intake frequency: holidays/special occasions only Substance Use Type: does not use Exam Narrative Exam Narrative: General: Frail appearing, in no acute distress. Able to give a complete and coherent history. HEENT: Moist mucous membranes, normal sclera with reactive pupils, Neck: No JVD, supple Respiratory: Lungs are clear to auscultation, no wheezing no rales no rhonchi. Full and symmetrical air movement Cardiac: Regular rate and rhythm no murmurs no bruits Abdomen: Soft, nontender, good bowel tones, renal transplant right lower quadrant nontender, no flank pain Skin: Warm and dry, no rashes Neurologic: Grossly neurologically intact with no obvious asymmetries or abnormalities Extremities: No trauma, well perfused Psych: Cooperative, appropriate insight and affect Initial Vital Signs Initial Vital Signs: Vital Signs Pulse Rate 77 12/21/19 12:08 Respiratory Rate 14 12/21/19 12:08 Blood Pressure 177/95 H 12/21/19 12:08 Pulse Oximetry 99 12/21/19 12:08 Course Orders Ordered: ED Orders 12/21/19 12:20 EKG-12 Lead Stat 12/21/19 12:40 Complete Blood Count AUTO DIFF Stat Comprehensive Metabolic Panel Stat Lipase Stat Partial Thromboplastin Time Stat Prothrombin Time INR Stat 12/21/19 12:42 Urine Microscopic Stat Vital Signs Vital signs: Vital Signs - 8 hr 12/21/19 12:08 Pulse Rate 77 Respiratory Rate 14 Blood Pressure 177/95 H Pulse Oximetry 99 Medical Decision Making Medical Records Medical records reviewed: Yes I reviewed the patient's medical records. Lab Data Lab results reviewed: Yes I reviewed the patient's lab results. Result diagrams: 12/21/19 12:40 12/21/19 12:40 Labs: Lab Results 12/21/19 12/21/19 12/21/19 Range/Units 12:40 12:40 12:40 WBC 10.4 (4.5-11.0) X10^3/uL RBC 4.27 (4.0-5.2) X10^6/uL Hgb 12.2 (12.0-16.0) g/dL Hct 36.3 (36-46) % MCV 84.9 (80-100) fL MCH 28.5 (26-34) PG MCHC 33.5 (30-36) % RDW 12.8 (11.6-14.8) % Plt Count 351 (150-400) X10^3/uL Neut % (Auto) 60.4 (50-75) % Lymph % (Auto) 29.0 (25-40) % Gregg % (Auto) 4.9 (3-14) % Eos % (Auto) 4.7 H (2-4) % Baso % (Auto) 1.0 (0-2) % Neut # (Auto) 6300 (6536-6939) /uL Lymph # (Auto) 3000 (7887-4046) /uL Gregg # (Auto) 500 (0-900) /uL Eos # (Auto) 500 H (0-450) /uL Baso # (Auto) 100 (0-100) /uL PT 13.4 H (10.1-12.7) SECONDS INR 1.2 (0.9-1.3) APTT 38 H D (26.4-36.2) SECONDS Sodium 136 L (137-145) mmol/L Potassium 5.1 (3.4-5.1) mmol/L Chloride 98 (98-107) mmol/L Carbon Dioxide 24 (22-32) mmol/L BUN 12 (7-17) mg/dL Creatinine 0.60 (0.52-1.04) mg/dL Estimated GFR > 60.0 (>60) mL/min BUN/Creatinine Ratio 20.0 (6-22) Glucose 117 H (80-110) mg/dL Calcium 9.9 (8.4-10.2) mg/dL Total Bilirubin 0.7 (0.2-1.3) mg/dL AST 40 H (14-36) IU/L ALT 23 (<35) IU/L Alkaline Phosphatase 67 (38-126) U/L Total Protein 8.6 H (6.3-8.2) g/dL Albumin 4.8 (3.5-5.0) g/dL Globulin 3.8 (1.7-4.1) g/dL Albumin/Globulin Ratio 1.3 (1.0-2.8) Lipase 154 (23-300) U/L Urine RBC (0-5/HPF) Urine WBC (0-5/HPF) Urine Bacteria (None) Ur Culture Indicated? Micro UA Comment 12/21/19 Range/Units 12:42 WBC (4.5-11.0) X10^3/uL RBC (4.0-5.2) X10^6/uL Hgb (12.0-16.0) g/dL Hct (36-46) % MCV (80-100) fL MCH (26-34) PG MCHC (30-36) % RDW (11.6-14.8) % Plt Count (150-400) X10^3/uL Neut % (Auto) (50-75) % Lymph % (Auto) (25-40) % Gregg % (Auto) (3-14) % Eos % (Auto) (2-4) % Baso % (Auto) (0-2) % Neut # (Auto) (0801-0451) /uL Lymph # (Auto) (4311-0877) /uL Gregg # (Auto) (0-900) /uL Eos # (Auto) (0-450) /uL Baso # (Auto) (0-100) /uL PT (10.1-12.7) SECONDS INR (0.9-1.3) APTT (26.4-36.2) SECONDS Sodium (137-145) mmol/L Potassium (3.4-5.1) mmol/L Chloride (98-107) mmol/L Carbon Dioxide (22-32) mmol/L BUN (7-17) mg/dL Creatinine (0.52-1.04) mg/dL Estimated GFR (>60) mL/min BUN/Creatinine Ratio (6-22) Glucose (80-110) mg/dL Calcium (8.4-10.2) mg/dL Total Bilirubin (0.2-1.3) mg/dL AST (14-36) IU/L ALT (<35) IU/L Alkaline Phosphatase (38-126) U/L Total Protein (6.3-8.2) g/dL Albumin (3.5-5.0) g/dL Globulin (1.7-4.1) g/dL Albumin/Globulin Ratio (1.0-2.8) Lipase (23-300) U/L Urine RBC None seen (0-5/HPF) Urine WBC None seen (0-5/HPF) Urine Bacteria None seen (None) Ur Culture Indicated? Cult not indicated Micro UA Comment Microscopic normal Urine Dip Bedside Urine Glucose Negative Bedside Urine Bilirubin - Negative Bedside Urine Ketone - Negative Urine Specific [place] 1.015 Bedside Urine Occult Blood +/- Bedside Urine pH 6.0 Bedside Urine Protein +/- 15 Bedside Urine Urobilinogen - Negative Bedside Urine Nitrite - Negative Bedside Urine Leukocytes - Negative Esterase Point of care testing: Urine Dip Bedside Urine Glucose Negative Bedside Urine Bilirubin - Negative Bedside Urine Ketone - Negative Urine Specific [place] 1.015 Bedside Urine Occult Blood +/- Bedside Urine pH 6.0 Bedside Urine Protein +/- 15 Bedside Urine Urobilinogen - Negative Bedside Urine Nitrite - Negative Bedside Urine Leukocytes - Negative Esterase ECG Data Attestation: I personally reviewed and interpreted this ECG as follows: Interpretation: Sinus rhythm at a rate of 74 Normal intervals and normal axis STT wave changes with inverted T-waves in leads V5 V6 Unchanged from comparison EKG 11/19/2019 [facility] Narrative Medical decision making narrative: 64-year-old woman with very brief episodes of palpitations noted today. While on telemetry in the emergency department no abnormalities were appreciated. She is currently appropriately treated for paroxysmal AFib with metoprolol at 12.5 mg b.i.d. and Eliquis. She was also concerned about pancreatitis and pancreatic cancer. When she was seen in October her lipase level had been elevated CT scan was unremarkable. Lipase level as reassuringly normal today. Apparently was seen at [facility] recently with similar complaints to today and metoprolol had been increased to 25 mg twice a day. She was not sure if she needed this and Dr. Da Silva told her she can go back to 12.5 mg b.i.d.. A symptoms have recurred at this lower dose she agrees that staying at 25 mg b.i.d. likely is going to be beneficial. Remainder of workup is normal today. There is no evidence of acute coronary syndrome prolonged atrial fibrillation with rapid ventricular response, pancreatitis or congestive heart failure. Will increase her metoprolol to 25 mg twice a day, have her continue all other medications including Eliquis and request that she follow-up with her primary care physician. She is safe for home discharge Discharge Plan Departure Patient Disposition: Home Clinical Impression: Heart palpitations Instructions: DI for Palpitations Activity Restrictions/Additional Instructions: Thank you for coming in today Your workup today was very reassuring. On telemetry, we did not see the palpitations that you were noting today and yesterday. Your blood pressure was slightly elevated. Your blood work was very reassuring including your lipase (the enzyme that was elevated when we are worried about pancreatitis last month) coming back down to normal. With an extra 12.5 mg of metoprolol in the emergency room your blood pressure is coming down nicely. Given the symptoms persisting and bothering you I am going to suggest that we go back to 25 mg of metoprolol in the morning and at night. You have had a thorough heart workup over the last few months and at this point are not showing any signs of heart disease/heart attack. Please follow-up with your primary care physician next week to make sure that this change to the metoprolol is going well. I wish you the best Prescriptions: No Action tacrolimus [Prograf] 1 MG capsule 3 mg PO BID Qty: 0 RF: 0 mycophenolate mofetil [CellCept] 250 MG capsule 250 mg PO BID Qty: 0 RF: 0 metformin [Glucophage XR] 500 MG tablet extended release 24 hr 500 mg PO BID Qty: 0 RF: 0 multivitamin [Multiple Vitamins] 1 EACH tablet 1 tab PO QDAY Qty: 0 RF: 0 pravastatin 40 MG tablet 40 mg PO QPM Qty: 0 RF: 0 metoprolol tartrate 25 mg Tablet 12.5 mg PO BID RF: 0 Referrals: Abelardo Robison DO [Primary Care Provider] -
[2019-12-21 12:43] LABS: Bacteria Urine None Seen; RBC Urine None Seen (0-5/HPF); WBC Urine None Seen (0-5/HPF)
[2019-12-21 12:49] LABS: Culture Indicated Urine Cult Not Indicated; Urine Comments Microscopic Normal
[2019-12-21 12:55] LABS: Add Manual Diff / Slide Review NO; Basophils Absolute Auto 100 /uL (0-100); Eosinophils Absolute Auto 500 /uL (0-450); Eosinophils Percent Auto 4.7 % (2-4); Hematocrit 36.3 % (36-46); Hemoglobin 12.2 g/dL (12.0-16.0); Lymphocytes Absolute Auto 3000 /uL (1100-4500); Mean Corpuscular HGB Conc 33.5 % (30-36); Mean Corpuscular Hemoglobin 28.5 PG (26-34); Mean Corpuscular Volume 84.9 fL (80-100); Monocytes Absolute Auto 500 /uL (0-900); Monocytes Percent Auto 4.9 % (3-14); Neutrophils Absolute Auto 6300 /uL (1500-7000); Neutrophils Percent Auto 60.4 % (50-75); Platelet Count 351 X10^3/uL (150-400); Red Blood Cell Count 4.27 X10^6/uL (4.0-5.2); Red Cell Distribution Width 12.8 % (11.6-14.8); White Blood Cell Count 10.4 X10^3/uL (4.5-11.0)
[2019-12-21 13:00] LABS: INR 1.2 (0.9-1.3); Prothrombin Time 13.4 SECONDS (10.1-12.7)
[2019-12-21 13:02] LABS: PTT Partial Thromboplastin Tim 38 SECONDS (26.4-36.2)
[2019-12-21 13:08] LABS: Alanine Aminotransferase 23 IU/L (<35); Albumin 4.8 g/dL (3.5-5.0); Albumin Globulin Ratio 1.3 (1.0-2.8); Alkaline Phosphatase 67 U/L (38-126); Aspartate Aminotransferase 40 IU/L (14-36); Bilirubin Total 0.7 mg/dL (0.2-1.3); Blood Urea Nitrogen 12 mg/dL (7-17); Calcium 9.9 mg/dL (8.4-10.2); Carbon Dioxide 24 mmol/L (22-32); Chloride 98 mmol/L (98-107); Estimated Glomerular Filt Rate > 60.0 mL/min (>60); Globulin 3.8 g/dL (1.7-4.1); Glucose 117 mg/dL (80-110); HEMOLYSIS 115 (0-50); Lipase 154 U/L (23-300); Sodium 136 mmol/L (137-145); Total Protein 8.6 g/dL (6.3-8.2)
[2019-12-21 13:09] LABS: Potassium 5.1 mmol/L (3.4-5.1)
== END 2019-12-21 14:31 | disposition home or self-care (01) ==
PROVIDERS: Emergency Provider Emergency Medicine; PCP Family Medicine
DX: R00.2 Palpitations (principal); I48.0 Paroxysmal atrial fibrillation; Z79.01 Long term (current) use of anticoagulants; E11.9 Type 2 diabetes mellitus without complications; E78.5 Hyperlipidemia, unspecified; I10 Essential (primary) hypertension
CPT/HCPCS: 36415; 80053; 81003; 81015; 83690; 85025; 85610; 85730; 93005; 93010; 99283; 99284

== ENCOUNTER → 2020-05-07 10:08 | Outpatient (CLI) | payer MEDICARE, OTHER, SELFPAY ==
[2019-11-20 10:54] VITALS: BMI 20.1
--- NOTE | 2020-05-07 10:16 | DI.RAD.S_ITS ---
PROCEDURE: XR LUMBAR SPINE MIN 4V INDICATIONS: PAIN TECHNIQUE: 4 views of the lumbar spine acquired, including flexion and extension views. COMPARISON: [facility] ALBERT Rincon, SPINE LUMB MIN 4VW, 04/02/2015, 12:03. FINDINGS: Bones: 5 nonrib-bearing vertebrae are present. There is normal bony alignment. No acute vertebral body compression fractures. No suspicious bony lesions. Mild multilevel disc space narrowing is seen with degenerative endplate changes including prominent osteophyte formation that is most pronounced at the L2-3 level anteriorly and laterally. There is mild facet hypertrophy at the L4-5 and L5-S1 levels. Soft tissues: Overlying bowel gas pattern is normal. Cholecystectomy clips are noted in the right upper quadrant. Surgical clips are also seen projecting over the right abdomen and pelvis. Flexion/extension: There is limited range of motion, with preserved alignment. IMPRESSION: Multilevel spondylosis and limited range of motion. Degenerative changes have mildly progressed when compared to the prior radiographs from 04/02/2015. Dictated by: Stephen Laguna M.D. on 05/07/2020 at 14:26 Approved by: Stephen Laguna M.D. on 05/07/2020 at 14:31
--- NOTE | 2020-05-07 10:17 | DI.RAD.S_ITS ---
PROCEDURE: XR PELVIS 1-2V INDICATIONS: PAIN TECHNIQUE: Single AP view of the pelvis acquired. COMPARISON: None. FINDINGS: Bones: No acute fractures or dislocations. No suspicious bony lesions. Mild degenerative changes are noted in the hips bilaterally as well as in the pubic symphysis, sacroiliac joints, and included lower lumbar spine. Soft tissues: Visualized bowel gas pattern is normal. No suspicious soft tissue calcifications. Surgical clips are seen projecting over the right abdomen/pelvis. IMPRESSION: No acute osseous abnormality. Mild degenerative changes in the hips, pubic symphysis, sacroiliac joints, and included lumbar spine. Dictated by: Stephen Laguna M.D. on 05/07/2020 at 13:54 Approved by: Stephen Laguna M.D. on 05/07/2020 at 13:57
== END ==
PROVIDERS: PCP Family Medicine; Referring Provider Family Medicine; Visit Provider Family Medicine
DX: M47.26 Other spondylosis with radiculopathy, lumbar region (principal); M25.551 Pain in right hip; G89.29 Other chronic pain; S32.030A Wedge compression fracture of third lumbar vertebra, initial encounter for closed fracture; M51.26 Other intervertebral disc displacement, lumbar region; M80.00XS Age-related osteoporosis with current pathological fracture, unspecified site, sequela; I48.91 Unspecified atrial fibrillation; Z94.0 Kidney transplant status
CPT/HCPCS: 72110; 72170; 99214

== ENCOUNTER 2020-07-24 12:22 | Observation (INO) | payer MEDICARE, OTHER, SELFPAY ==
[2019-11-20 10:54] VITALS: BMI 20.1
[2020-07-24] VITALS (26 sets, daily range): BP systolic 145–238; BP diastolic 66–112; PULSE 65–84; RESP 14–24; TEMP 36.7; O2SAT 96–100; BMI 46.7
--- NOTE | 2020-07-24 12:52 | DI.RAD.S_ITS ---
PROCEDURE: XR CHEST 1V INDICATIONS: chest pain TECHNIQUE: One view of the chest was acquired. COMPARISON: , CR, XR CHEST 1V, 11/19/2019, 20:26. FINDINGS: Surgical changes and devices: None. Lungs and pleura: Lungs are clear. No pleural effusions or pneumothorax. Mediastinum: Mediastinal contours appear normal. Heart size is normal. Bones and chest wall: No suspicious bony lesions. Overlying soft tissues appear unremarkable. IMPRESSION: No acute process. Dictated by: Chandler Ty M.D. on 07/24/2020 at 13:38 Approved by: Chandler Ty M.D. on 07/24/2020 at 13:38
--- NOTE | 2020-07-24 13:12 | ED_ITS ---
HPI - General Adult General Chief complaint: Hypertension Stated complaint: BLOOD PRESSURE IS HIGH HEADACHE Time Seen by Provider: 07/24/20 13:05 Source: patient Mode of arrival: Wheelchair Limitations: no limitations History of Present Illness HPI narrative: Patient is a 64-year-old female. Has a history of hypertension. Twenty years ago she had a kidney transplant after end-stage renal disease and spending time on dialysis. She states that for the past several days/week she has noticed that her blood pressure has been elevating at home. States she notices when her blood pressure elevates. She becomes somewhat lightheaded has ?a little bit ?of chest pain and some shortness of breath. She is taking her medications as directed. She came to the emergency department today because her blood pressure continues to be elevated. Related Data Home Medications Medication Instructions Recorded Confirmed metformin [Glucophage XR] 500 mg PO BID #0 12/01/16 05/07/20 multivitamin [Multiple Vitamins] 1 tab PO QDAY #0 12/01/16 05/07/20 mycophenolate mofetil [CellCept] 250 mg PO BID #0 12/01/16 05/07/20 pravastatin 40 mg PO QPM #0 12/01/16 05/07/20 tacrolimus [Prograf] 3 mg PO BID #0 12/01/16 05/07/20 apixaban 2.5 mg tablet 2.5 mg PO BID 05/07/20 05/07/20 ibandronate 150 mg tablet 150 mg PO QMONTH 05/07/20 05/07/20 losartan 100 mg tablet 100 mg PO DAILY 05/07/20 05/07/20 magnesium oxide 400 mg (241.3 mg 400 mg PO DAILY 05/07/20 05/07/20 magnesium) tablet paroxetine HCl 10 mg tablet 10 mg PO DAILY 05/07/20 05/07/20 sotalol 80 mg tablet 80 mg PO BID 05/07/20 05/07/20 Allergies Allergy/AdvReac Type Severity Reaction Status Date / Time Sulfa (Sulfonamide Allergy Intermediate HIVES, RED Verified 07/24/20 12:30 Antibiotics) SKIN, ITCHY [SULFA (SULFONAMIDE ANTIBIOTICS)] Review of Systems Constitutional Constitutional: Denies fever(s) and Reports headache(s) (With elevated blood pressure) ENT Ears, Nose, Mouth, and Throat: Reports headache(s) (With elevated blood pressure) Cardiovascular Cardiovascular: Reports chest pain (With high blood pressure), Denies rapid heart rate, Denies irregular heart rhythm, Denies leg edema, Denies lightheadedness and Denies dyspnea Respiratory Respiratory: Denies dyspnea Gastrointestinal Gastrointestinal: Denies abdominal pain, Denies nausea and Denies vomiting Genitourinary Genitourinary: Denies dysuria Genitourinary: Denies dysuria Musculoskeletal Musculoskeletal: Denies myalgias Integumentary/Breasts Skin/Breast: Denies lesions and Denies rash Neurologic Neurologic: Denies behavioral changes and Reports headache(s) (With elevated blood pressure) Psychiatric Psychiatric: Denies behavioral changes Hematologic/Lymphatic On Anticoagulants: No Allergic/Immunologic Allergic/Immunologic: Denies urticaria Patient History Medical History Atrial fibrillation with rapid ventricular response Compression fracture of L3 lumbar vertebra Diabetes type 2, controlled Herniated nucleus pulposus, L1-2 Hyperlipidemia Osteoporosis Type 2 OK (myocardial infarction) Surgical History History of bladder suspension procedure Kidney transplant recipient Tubal ligation status Family History Father Lung cancer Mother Kidney disease Sister Myocardial infarct Brother Myocardial infarct Social History household members: spouse Smoking Status: Never smoker alcohol intake: never Smoking Status: Never smoker alcohol intake frequency: holidays/special occasions only Substance Use Type: does not use Exam Initial Vital Signs Initial Vital Signs: Vital Signs Temperature 98.1 F 07/24/20 12:25 Pulse Rate 74 07/24/20 12:25 Respiratory Rate 14 07/24/20 12:25 Blood Pressure 238/112 H 07/24/20 12:25 Pulse Oximetry 98 07/24/20 12:25 Const General: cooperative, comfortable, well developed and well groomed Limitations: mental status not altered HENGA Head: normal to inspection and normocephalic Eyes General: appearance normal, both eyes and all related structures Resp Effort & Inspection: normal respiratory effort Auscultation: clear to auscultation bilaterally Cardio Rate: regular rate Rhythm: regular rhythm GI Inspection: non-distended Palpation: soft Skin Lesions: no lesions Rashes: no rashes Neuro General: patient alert, patient awake and patient oriented x3 Cognition: normal cognition Speech: speech normal Extrem General: normal to inspection and capillary refill normal Psych Appearance: grossly normal and well kempt Course Orders Ordered: ED Orders 07/24/20 12:52 XR chest 1V Stat EKG-12 Lead Stat 07/24/20 13:20 Complete Blood Count AUTO DIFF Stat 07/24/20 14:00 Comprehensive Metabolic Panel Stat Lipase Stat Magnesium Stat Partial Thromboplastin Time Stat Prothrombin Time INR Stat Troponin & CK Cardiac Panel Stat 07/24/20 15:01 EKG-12 Lead Stat 07/24/20 17:19 Troponin I Stat 07/24/20 17:41 COVID19 -Nasal swab/Pre-Proc Stat Discontinued Medications Labetalol HCl (Labetalol 20 Mg/4 Ml Syringe) 10 mg IV NOW ONE Stop: 07/24/20 13:41 Last Admin: 07/24/20 14:04 Dose: 10 mg Documented by: HAYLEY Vital Signs Vital signs: Vital Signs - 8 hr 07/24/20 12:25 07/24/20 13:12 07/24/20 13:23 Temperature 98.1 F Pulse Rate 74 72 70 Respiratory Rate 14 24 24 Blood Pressure 238/112 H 204/86 H Pulse Oximetry 98 99 97 07/24/20 13:34 07/24/20 13:35 07/24/20 14:00 Temperature Pulse Rate 77 70 66 Respiratory Rate 21 20 24 Blood Pressure 212/88 H 207/90 H Pulse Oximetry 99 99 98 07/24/20 14:04 07/24/20 14:11 07/24/20 14:30 Temperature Pulse Rate 65 71 73 Respiratory Rate 18 15 Blood Pressure 207/90 H 179/81 H Pulse Oximetry 99 97 07/24/20 15:00 07/24/20 15:03 07/24/20 15:05 Temperature Pulse Rate 70 69 71 Respiratory Rate 18 20 Blood Pressure 145/66 H 145/66 H Pulse Oximetry 97 96 07/24/20 15:30 07/24/20 15:33 07/24/20 15:59 Temperature Pulse Rate 71 69 68 Respiratory Rate 17 18 20 Blood Pressure 181/84 H 164/76 H 154/77 H Pulse Oximetry 98 98 99 07/24/20 16:00 07/24/20 16:11 07/24/20 16:30 Temperature Pulse Rate 68 71 70 Respiratory Rate 23 18 23 Blood Pressure 154/75 H 175/85 H 177/84 H Pulse Oximetry 98 97 100 07/24/20 17:00 07/24/20 17:30 07/24/20 18:00 Temperature Pulse Rate 68 70 72 Respiratory Rate 23 20 22 Blood Pressure 182/82 H 174/81 H 187/90 H Pulse Oximetry 99 97 98 07/24/20 18:30 Temperature Pulse Rate 72 Respiratory Rate 23 Blood Pressure 151/77 H Pulse Oximetry 97 Medical Decision Making Lab Data Lab results reviewed: Yes I reviewed the patient's lab results. Result diagrams: 07/24/20 13:20 07/24/20 14:00 Labs: Lab Results 07/24/20 07/24/20 07/24/20 Range/Units 13:20 14:00 14:00 WBC 12.0 H (4.5-11.0) X10^3/uL RBC 4.41 (4.0-5.2) X10^6/uL Hgb 12.5 (12.0-16.0) g/dL Hct 37.6 (36-46) % MCV 85.2 (80-100) fL MCH 28.2 (26-34) PG MCHC 33.2 (30-36) % RDW 12.9 (11.6-14.8) % Plt Count 352 (150-400) X10^3/uL Neut % (Auto) 57.2 (50-75) % Lymph % (Auto) 29.0 (25-40) % [place] % (Auto) 6.2 (3-14) % Eos % (Auto) 6.7 H (2-4) % Baso % (Auto) 0.9 (0-2) % Neut # (Auto) 6900 (9957-5338) /uL Lymph # (Auto) 3500 (0423-4510) /uL [place] # (Auto) 700 (0-900) /uL Eos # (Auto) 800 H (0-450) /uL Baso # (Auto) 100 (0-100) /uL PT 15.4 H (10.1-12.7) SECONDS INR 1.3 (0.9-1.3) APTT 43 H (26.4-36.2) SECONDS Sodium 134 L (137-145) mmol/L Potassium 3.6 (3.4-5.1) mmol/L Chloride 95 L (98-107) mmol/L Carbon Dioxide 25 (22-32) mmol/L BUN 14 (7-17) mg/dL Creatinine 0.72 (0.52-1.04) mg/dL Estimated GFR > 60.0 (>60) mL/min BUN/Creatinine Ratio 19.4 (6-22) Glucose 123 H (80-110) mg/dL Calcium 9.8 (8.4-10.2) mg/dL Magnesium (1.6-2.3) mg/dL Total Bilirubin 0.5 (0.2-1.3) mg/dL AST 27 (14-36) IU/L ALT 20 (<35) IU/L Alkaline Phosphatase 72 (38-126) U/L Total Creatine Kinase 68 (30-135) U/L CK-MB (CK-2) TNP CK-MB (CK-2) Rel Index TNP Troponin I < 0.012 (0.01-0.034) ng/mL Total Protein 8.1 (6.3-8.2) g/dL Albumin 4.6 (3.5-5.0) g/dL Globulin 3.5 (1.7-4.1) g/dL Albumin/Globulin Ratio 1.3 (1.0-2.8) Lipase 203 (23-300) U/L SARS-CoV-2 (PCR) (Negative) 07/24/20 07/24/20 07/24/20 Range/Units 14:00 17:19 17:41 WBC (4.5-11.0) X10^3/uL RBC (4.0-5.2) X10^6/uL Hgb (12.0-16.0) g/dL Hct (36-46) % MCV (80-100) fL MCH (26-34) PG MCHC (30-36) % RDW (11.6-14.8) % Plt Count (150-400) X10^3/uL Neut % (Auto) (50-75) % Lymph % (Auto) (25-40) % [place] % (Auto) (3-14) % Eos % (Auto) (2-4) % Baso % (Auto) (0-2) % Neut # (Auto) (6942-6762) /uL Lymph # (Auto) (5290-6803) /uL [place] # (Auto) (0-900) /uL Eos # (Auto) (0-450) /uL Baso # (Auto) (0-100) /uL PT (10.1-12.7) SECONDS INR (0.9-1.3) APTT (26.4-36.2) SECONDS Sodium (137-145) mmol/L Potassium (3.4-5.1) mmol/L Chloride (98-107) mmol/L Carbon Dioxide (22-32) mmol/L BUN (7-17) mg/dL Creatinine (0.52-1.04) mg/dL Estimated GFR (>60) mL/min BUN/Creatinine Ratio (6-22) Glucose (80-110) mg/dL Calcium (8.4-10.2) mg/dL Magnesium 1.1 L (1.6-2.3) mg/dL Total Bilirubin (0.2-1.3) mg/dL AST (14-36) IU/L ALT (<35) IU/L Alkaline Phosphatase (38-126) U/L Total Creatine Kinase (30-135) U/L CK-MB (CK-2) CK-MB (CK-2) Rel Index Troponin I < 0.012 (0.01-0.034) ng/mL Total Protein (6.3-8.2) g/dL Albumin (3.5-5.0) g/dL Globulin (1.7-4.1) g/dL Albumin/Globulin Ratio (1.0-2.8) Lipase (23-300) U/L SARS-CoV-2 (PCR) Negative (Negative) Urine Dip Bedside Urine Glucose Negative Bedside Urine Bilirubin - Negative Bedside Urine Ketone - Negative Urine Specific Gibson 1.020 Bedside Urine Occult Blood +/- Bedside Urine pH 6 Bedside Urine Protein - Negative Bedside Urine Urobilinogen - Negative Bedside Urine Nitrite - Negative Bedside Urine Leukocytes - Negative Esterase Point of care testing: Urine Dip Bedside Urine Glucose Negative Bedside Urine Bilirubin - Negative Bedside Urine Ketone - Negative Urine Specific Gibson 1.020 Bedside Urine Occult Blood +/- Bedside Urine pH 6 Bedside Urine Protein - Negative Bedside Urine Urobilinogen - Negative Bedside Urine Nitrite - Negative Bedside Urine Leukocytes - Negative Esterase Imaging Data Chest x-ray: Radiologist's Impression: [facility] [place] [id number] ReportSigned Patient: Yunier Metzger LMR#: [id number]: 4Acct:[id number]/Sex: 64 / FDate of Service: 07/24/20Loc: EDAccession Number: [id number] Procedure: XR chest 1V Ordering Provider: Reji Melendez D.O. PROCEDURE: XR CHEST 1V INDICATIONS: chest pain TECHNIQUE: One view of the chest was acquired. COMPARISON: [facility], , XR CHEST 1V, 11/19/2019, 20:26. FINDINGS: Surgical changes and devices: None. Lungs and pleura: Lungs are clear. No pleural effusions or pneumothorax. Mediastinum: Mediastinal contours appear normal. Heart size is normal. Bones and chest wall: No suspicious bony lesions. Overlying soft tissues appear unremarkable. IMPRESSION: No acute process. Dictated by: Chandler Ty M.D. on 07/24/2020 at 13:38 Approved by: Chandler Ty M.D. on 07/24/2020 at 13:38 ECG Data Attestation: I personally reviewed and interpreted this ECG as follows: Prior ECG tracings: available for review Interpretation: Sinus rhythm Ventricular rate is 67 Normal QRS Normal QTC T-wave inversions in 1 2 aVL V4 V5 V6 Comparison EKG from 2019. T-wave inversions in t2 V4 V5 V6 are new. Repeat EKG after reduction in blood pressure shows no change to admission. MDM Narrative Medical decision making narrative: Patient arrived with a significantly elevated blood pressure. This did improve with labetalol. EKG today shows new T-wave inversions compared to an EKG from approximately 1 year ago. Her kidney function is unremarkable. She is afebrile. Not clinically in heart failure. Her chest discomfort has improved since being here. I discussed the case with Dr. franco with Cardiology who recommended that she be admitted to our facility for stress testing. He did not feel that the patient would warrant a PCI. I discussed case Dr. mohan who will admit for further evaluation treatment. Discussed the admission with the patient and family bedside. They expressed understanding and agreement. Discharge Plan Departure Patient Disposition: Admitted as Observation Clinical Impression: Hypertension, Chest pain Admit Date/Time: 07/24/20 18:30 Admit Provider: Kassy Mohan
[2020-07-24 13:30] LABS: Add Manual Diff / Slide Review NO; Basophils Absolute Auto 100 /uL (0-100); Basophils Percent Auto 0.9 % (0-2); Eosinophils Absolute Auto 800 /uL (0-450); Eosinophils Percent Auto 6.7 % (2-4); Hematocrit 37.6 % (36-46); Hemoglobin 12.5 g/dL (12.0-16.0); Lymphocytes Absolute Auto 3500 /uL (1100-4500); Mean Corpuscular HGB Conc 33.2 % (30-36); Mean Corpuscular Hemoglobin 28.2 PG (26-34); Mean Corpuscular Volume 85.2 fL (80-100); Monocytes Absolute Auto 700 /uL (0-900); Monocytes Percent Auto 6.2 % (3-14); Neutrophils Absolute Auto 6900 /uL (1500-7000); Neutrophils Percent Auto 57.2 % (50-75); Platelet Count 352 X10^3/uL (150-400); Red Blood Cell Count 4.41 X10^6/uL (4.0-5.2); Red Cell Distribution Width 12.9 % (11.6-14.8)
[2020-07-24] MEDS: LABETALOL 20 MG/4 ML SYRINGE 10 MG IV (14:04)
[2020-07-24 14:14] LABS: INR 1.3 (0.9-1.3); Prothrombin Time 15.4 SECONDS (10.1-12.7)
[2020-07-24 14:17] LABS: PTT Partial Thromboplastin Tim 43 SECONDS (26.4-36.2)
[2020-07-24 14:24] LABS: Alanine Aminotransferase 20 IU/L (<35); Albumin 4.6 g/dL (3.5-5.0); Albumin Globulin Ratio 1.3 (1.0-2.8); Alkaline Phosphatase 72 U/L (38-126); Aspartate Aminotransferase 27 IU/L (14-36); BUN Creatinine Ratio 19.4 (6-22); Bilirubin Total 0.5 mg/dL (0.2-1.3); Blood Urea Nitrogen 14 mg/dL (7-17); Calcium 9.8 mg/dL (8.4-10.2); Carbon Dioxide 25 mmol/L (22-32); Chloride 95 mmol/L (98-107); Creatine Kinase 68 U/L (30-135); Estimated Glomerular Filt Rate > 60.0 mL/min (>60); Globulin 3.5 g/dL (1.7-4.1); Glucose 123 mg/dL (80-110); HEMOLYSIS < 15 (0-50); Lipase 203 U/L (23-300); Magnesium 1.1 mg/dL (1.6-2.3); Potassium 3.6 mmol/L (3.4-5.1); Sodium 134 mmol/L (137-145); Total Protein 8.1 g/dL (6.3-8.2)
[2020-07-24 14:35] LABS: Troponin I < 0.012 ng/mL (0.01-0.034)
[2020-07-24 18:02] LABS: COVID19 -Nasal RAPID Negative (Negative)
[2020-07-24 18:09] LABS: Troponin I < 0.012 ng/mL (0.01-0.034)
--- NOTE | 2020-07-24 20:22 | DI.NM.S_ITS ---
PROCEDURE: NM THOM PERF SPECT R&S PHARM Rest and pharmacological stress myocardial perfusion SPECT with gated imaging and ejection fraction RADIOPHARMACEUTICAL: 10.2 mCi Tc-99m tetrafosmin IV at rest and 24.6 mCi Tc-99m tetrafosmin IV at peak effect of pharmacological stress. [id number] was performed. INDICATIONS: Abnormal EKG TECHNIQUE: Radiopharmaceutical was injected at peak stress test, and also at rest. SPECT images were obtained. SPECT myocardial perfusion images were displayed in short axis, horizontal long axis, and vertical long axis views. Gated images were reviewed using Via6 software. COMPARISON: None. CARDIAC STRESS: A pharmacologic stress test was performed under the supervision of an attending staff, using an infusion of lexiscan 0.4mg IV X1. Hemodynamic data: There is normal blood pressure and heart rate response to pharmacologic stress. Symptoms: The patient denied anginal chest pain. Aminophylline: 100mg IV EKG: Resting ECG shows sinus rhythm with diffuse non-specific ST-T depressions. No diagnostic changes of ischemia with lexiscan; no ectopy. FINDINGS: Raw data: There is good myocardial uptake of radiotracer. No significant motion artifacts. [id number] ratio is 0.32 (normal is less than 0.38 for tetrafosmin tracer). Left ventricle function: Gated images demonstrate normal left ventricular wall thickening. No segmental wall motion abnormalities. No transient ischemic dilation; TID is 0.79 (normal less than 1.3). Left ventricle resting end diastolic volume is 42 mL. Left ventricle stress ejection fraction is 84%; normal range is above 45%. Myocardial perfusion: There is normal distribution of activity in the right and left ventricular myocardium. No fixed or reversible perfusion defects. IMPRESSION: Low risk, normal pharmaceutical nuclear stress test. 1) No perfusion evidence of ischemia or infarction. 2) Normal left ventricular size, wall motion, and systolic function (EF post stress 84%). 3) No ECG evidence of ischemia with lexiscan. 4) No angina during the study. 5) No prior nuclear stress test available for comparison. I called Dr. Mohan with report and left a voicemail on her cellphone. Dictated by: Ronda Kruse MD on 07/25/2020 at 16:45 Approved by: Ronda Kruse MD on 07/25/2020 at 16:49
[2020-07-24] MEDS: MAGNESIUM SULFATE 2 GM/50 ML PIGGYBACK IV (21:33)
[2020-07-24] MEDS: SODIUM CHLORIDE 0.9% 1,000 ML 75 ML IV (21:33)
[2020-07-24] MEDS: PANTOPRAZOLE 40 MG VIAL IV (21:49)
[2020-07-24] MEDS: POTASSIUM CHLORIDE 20 MEQ TAB 40 MEQ PO (21:49)
[2020-07-24] MEDS: APIXABAN 5 MG TABLET PO (22:43)
[2020-07-24] MEDS: METFORMIN XR 500 MG TABLET PO (22:43)
[2020-07-24] MEDS: PRAVASTATIN 20 MG TABLET 40 MG PO (22:43)
[2020-07-24] MEDS: SOTALOL 80 MG TABLET 40 MG PO (22:44)
[2020-07-24 23:25] LABS: Troponin I < 0.012 ng/mL (0.01-0.034)
[2020-07-25] VITALS (7 sets, daily range): BP systolic 132–152; BP diastolic 72–85; PULSE 64–80; RESP 14–19; TEMP 36.2–37; O2SAT 97–100
--- NOTE | 2020-07-25 01:00 | PM.HP.1 ---
History of Present Illness History of Present Illness Date Patient Seen: 07/24/20 Time Patient Seen: 22:15 Chief complaint: BLOOD PRESSURE IS HIGH HEADACHE Narrative: Ms. Yunier Metzger is a 64-year-old female patient with a past medical history significant for coronary artery disease status post ME, paroxysmal atrial fibrillation anticoagulated on apixaban, [id number] diabetes type 2 kidney failure with kidney transplant, hyperlipidemia, GERD, osteoporosis who presents to the ER with high blood pressure and headache. She reports last Thursday that she had a blood pressure in 188 at which time she felt dizzy and did have to falls. The patient states she has had elevated blood pressures at home over the last 2 weeks with pressures into the 170s and 180s. She has contact your primary care provider and has appointment scheduled. Patient states her blood pressure and blood sugars have been elevated over the last 2 weeks since she had an episode of atrial fibrillation with palpitations. She reports her blood sugar this morning was 172. Patient has a transplant kidney in the right lower quadrant and is currently on immunotherapy with CellCept and tacrolimus. She reports no visual changes, gait disturbance or speech difficulties. She has had no weakness however does endorse intermittent numbness and tingling of the right leg. She has had no recent illness and denies fevers or chills, nasal congestion or sore throat. She has had no chest pain or pressure, her last episode of palpitations was 2 weeks ago. She reports mild general exertional dyspnea but no shortness of breath arrest, cough or wheezing. She denies complaints of abdominal pain, nausea vomiting or diarrhea. She denies urinary symptoms of urgency frequency or burning. Upon arrival to the ER the patient's temperature 98.1?, heart rate of 74, blood pressure 238/112, respirations 14 saturating 98% on room air. Initial EKG finds sinus rhythm at 67 with T-wave inversion in lead 1, lead 2, aVL, V3 through V6. The chest x-ray reveals no acute findings. The patient is given labetalol 10 mg with improvement in blood pressure after which in repeat EKG finds improvement however persistent ST inversion in lead 1, aVL and V2 through 6. On laboratory analysis she has white count of 12.0, hemoglobin of 12.5, hematocrit of 37.6 and platelets of 352. She has a PT of 15 point, INR 1.3 and PTT of 43. Her sodium is 134, potassium is 3.6 in her BUN is 14 with a creatinine 0.72. Nonfasting glucose is 123. Her liver functions are all within normal limits. Her magnesium is low at 1.1. Her total CK is 6.8 a troponin less than 0.012. Her COVID screening is negative. In the ER the patient received labetalol 10 mg IV x1 and is admitted to the hospitalist service for hypertensive urgency and abnormal EKG requiring further monitoring and evaluation. Patient History Medical History Atrial fibrillation with rapid ventricular response Compression fracture of L3 lumbar vertebra Diabetes type 2, controlled Herniated nucleus pulposus, L1-2 Hyperlipidemia Osteoporosis Type 2 ME (myocardial infarction) Surgical History History of bladder suspension procedure Kidney transplant recipient Tubal ligation status Family & Social History Family History Father Lung cancer Mother Kidney disease Sister Myocardial infarct Brother Myocardial infarct Social History: household members spouse Prior Living Arrangements House Safety & Behavioral: Feels Safe in Current Yes Environment Been Physically Hurt or No Threatened By a Person Suicidal Ideation Description None Suicide Plan Description No Plan Tobacco & Substance use: Smoking Status Never smoker alcohol intake never alcohol intake frequency holiday/special occasion Substance Use Type does not use Meds Home Medications and Allergies Home Medications Medication Instructions Recorded Confirmed Type metformin [Glucophage XR] 500 mg PO BID #0 12/01/16 07/24/20 History multivitamin [Multiple Vitamins] 1 tab PO QDAY #0 12/01/16 07/24/20 History mycophenolate mofetil [CellCept] 500 mg PO BID #0 12/01/16 07/24/20 History pravastatin 40 mg PO QPM #0 12/01/16 07/24/20 History tacrolimus [Prograf] 2 mg PO BID #0 12/01/16 07/24/20 History apixaban 2.5 mg tablet 5 mg PO BID 05/07/20 07/24/20 History ibandronate 150 mg tablet 150 mg PO QMONTH 05/07/20 07/24/20 History magnesium oxide 400 mg (241.3 mg 400 mg PO DAILY 05/07/20 07/24/20 History magnesium) tablet paroxetine HCl 10 mg tablet 10 mg PO DAILY 05/07/20 07/24/20 History sotalol 80 mg tablet 40 mg PO BID 05/07/20 07/24/20 History ethacrynic acid 25 mg PO DAILY 07/24/20 07/24/20 History lisinopril 20 mg PO DAILY 07/24/20 07/24/20 History pantoprazole 40 mg PO DAILY 07/24/20 07/24/20 History Allergies Allergy/AdvReac Type Severity Reaction Status Date / Time Sulfa (Sulfonamide Allergy Intermediate HIVES, RED Verified 07/24/20 12:30 Antibiotics) SKIN, ITCHY [SULFA (SULFONAMIDE ANTIBIOTICS)] Review of Systems Review of Systems ROS: Yes All systems reviewed with the patient and are negative except as otherwise documented Exam Vital Signs (past 8 hours): - 07/24/20 17:30 07/24/20 18:00 07/24/20 18:30 Temperature Pulse Rate 70 72 72 Respiratory Rate 20 22 23 Blood Pressure 174/81 H 187/90 H 151/77 H Pulse Oximetry 97 98 97 07/24/20 19:07 07/24/20 19:35 07/24/20 20:52 Temperature 98.1 F Pulse Rate 84 72 72 Respiratory Rate 22 18 16 Blood Pressure 162/78 H Pulse Oximetry 96 96 96 07/24/20 22:35 07/25/20 00:15 Temperature 97.4 F L Pulse Rate 72 64 Respiratory Rate 14 Blood Pressure 151/79 H 147/82 H Pulse Oximetry 99 Oxygen Delivery Method Room Air Oxygen Flow Rate 0 Narrative Exam Narrative: GENERAL APPEARANCE: well developed, well nourished, in no acute distress. HEENT: Normocephalic, PERRLA, conjunctiva clear, EOMs intact without nystagmus, mucous membranes are pink and dry. NECK/THYROID: neck supple, no JVD, no carotid bruit, no thyromegaly, trachea midline. LYMPH NODES: no cervical or supraclavicular lymphadenopathy. SKIN: [place], warm, dry to touch with tenting, no visible rashes or lesions. HEART: regular rate and rhythm, S1-S2, no murmur, no rubs or gallops, brisk 2+ dorsalis pedis pulses, no pedal edema LUNGS: clear to auscultation bilaterally, no coarseness crackles or wheezing, no cough present CHEST: Symmetrical movement, no accessory muscle use, good tidal volume. ABDOMEN: Soft, no distention, palpable transplanted kidney right lower quadrant, no abdominal tenderness, no organomegaly, no flank or suprapubic tenderness, active bowel tones. BACK: Normal curvature, nontender to palpation, no CVA tenderness on percussion EXTREMITIES: moves all extremities, strength is 5/5 and symmetrical, no deformities or joint effusions, no cyanosis clubbing. NEUROLOGIC: AAO x4, no focal neurologic deficits, cranial nerves II-XII grossly intact, sensation intact to light touch, hearing grossly normal to speech. PSYCH: Mildly anxious, cooperative, behaviorally stable. Objective Labs Result Diagrams: 07/24/20 13:20 07/24/20 14:00 Labs: Laboratory Results - last 24 hr 07/24/20 07/24/20 07/24/20 13:20 14:00 14:00 WBC 12.0 H RBC 4.41 Hgb 12.5 Hct 37.6 MCV 85.2 MCH 28.2 MCHC 33.2 RDW 12.9 Plt Count 352 Neut % (Auto) 57.2 Lymph % (Auto) 29.0 [place] % (Auto) 6.2 Eos % (Auto) 6.7 H Baso % (Auto) 0.9 Neut # (Auto) 6900 Lymph # (Auto) 3500 [place] # (Auto) 700 Eos # (Auto) 800 H Baso # (Auto) 100 PT 15.4 H INR 1.3 APTT 43 H Sodium 134 L Potassium 3.6 Chloride 95 L Carbon Dioxide 25 BUN 14 Creatinine 0.72 Estimated GFR > 60.0 BUN/Creatinine Ratio 19.4 Glucose 123 H Calcium 9.8 Magnesium Total Bilirubin 0.5 AST 27 ALT 20 Alkaline Phosphatase 72 Total Creatine Kinase 68 CK-MB (CK-2) TNP CK-MB (CK-2) Rel Index TNP Troponin I < 0.012 Total Protein 8.1 Albumin 4.6 Globulin 3.5 Albumin/Globulin Ratio 1.3 Lipase 203 SARS-CoV-2 (PCR) 07/24/20 07/24/20 07/24/20 14:00 17:19 17:41 WBC RBC Hgb Hct MCV MCH MCHC RDW Plt Count Neut % (Auto) Lymph % (Auto) [place] % (Auto) Eos % (Auto) Baso % (Auto) Neut # (Auto) Lymph # (Auto) [place] # (Auto) Eos # (Auto) Baso # (Auto) PT INR APTT Sodium Potassium Chloride Carbon Dioxide BUN Creatinine Estimated GFR BUN/Creatinine Ratio Glucose Calcium Magnesium 1.1 L Total Bilirubin AST ALT Alkaline Phosphatase Total Creatine Kinase CK-MB (CK-2) CK-MB (CK-2) Rel Index Troponin I < 0.012 Total Protein Albumin Globulin Albumin/Globulin Ratio Lipase SARS-CoV-2 (PCR) Negative 07/24/20 22:55 WBC RBC Hgb Hct MCV MCH MCHC RDW Plt Count Neut % (Auto) Lymph % (Auto) [place] % (Auto) Eos % (Auto) Baso % (Auto) Neut # (Auto) Lymph # (Auto) [place] # (Auto) Eos # (Auto) Baso # (Auto) PT INR APTT Sodium Potassium Chloride Carbon Dioxide BUN Creatinine Estimated GFR BUN/Creatinine Ratio Glucose Calcium Magnesium Total Bilirubin AST ALT Alkaline Phosphatase Total Creatine Kinase CK-MB (CK-2) CK-MB (CK-2) Rel Index Troponin I < 0.012 Total Protein Albumin Globulin Albumin/Globulin Ratio Lipase SARS-CoV-2 (PCR) Assessment & Plan Assessment & Plan narrative: This patient is a 64-year-old female patient with a past medical history significant for coronary artery disease status post ME, paroxysmal atrial fibrillation anticoagulated on apixaban, [id number]-[id number] diabetes type 2 kidney failure with kidney transplant, hyperlipidemia, GERD, osteoporosis who presents to the ER with high blood pressure and headache. Patient presented hypertensive at 238/112 with EKG changes that improved but did not completely resolved following improvement in blood pressure. Patient has multiple risk factors including prior ME, diabetes, hypertension and a strong family history of cardiovascular disease and heart attack in early age. 1. Hypertensive urgency, present on admission, improved. -patient received labetalol 10 mg IV in the emergency department with improvement of blood pressure to 150 systolic with the resolution of headache. -ordered hydralazine 10 mg IV every 6 hours as needed for systolic blood pressure sustained greater than 180 or diastolic greater than 100. -ordered amlodipine 5 mg p.o. daily -will continue home regimen of lisinopril 20 mg daily. 2. Cardiac ischemia on 12 lead EKG, present on admission, active. -patient with inverted T-waves in lead 1, aVL and V3 through V6. The patient denies complaints of chest pain diaphoresis or nausea. -T-wave inversion improves following correction of severe hypertension but remains persistent. Initial troponin is negative at less than 0.012. -ordered nitroglycerin 0.4 mg sublingual Q 5 minutes x3 as needed for chest pain with morphine sulfate 2 mg IV as needed for chest pain unresponsive to nitro. -will obtain serial troponins. -ordered cardiac stress test in the morning and will be NPO at midnight. -ordered echocardiogram. 3. Paroxysmal atrial fibrillation in sinus rhythm, chronic, stable. -the patient is in sinus rhythm on 12 lead EKG. -potassium is noted to be 3.6 and is treated with 40 mEq potassium. Will recheck potassium level in the morning. -magnesium is found low at 1.1 and is treated with 2 g of magnesium sulfate IV. Will recheck a magnesium level in the morning. -will continue apixaban 5 mg by mouth twice daily. -cardiac telemetry 4. Non-insulin dependent Diabetes type 2, chronic, stable -patient reports elevated blood sugars the last 2 weeks reporting fingerstick blood sugar of 172 this morning -serum glucose is 123 on admission labs. -will continue metformin 500 mg twice daily -order glucose checks a.c. and HS with low-dose correctional insulin. -will obtain hemoglobin A1c. 5. Hyperlipidemia, chronic, stable -will continue pravastatin 40 mg at bedtime. -will obtain lipid panel. VTE prophylaxis: Anticoagulated on apixaban IV fluid: Normal saline 75 cc/hour Diet: Heart healthy low-sodium Code status: Full code, patient designates her daughter to be his surrogate decision maker. The patient is admitted to the hospital due to the severity of her symptoms requiring further monitoring and treatment to prevent complications or adverse events. The patient is admitted as observation with expected length of stay to be less than 2 midnights. COVID-19 COVID-19 status: Negative Result date/Date tested (Pos, Neg/Pending): 07/24/20 Scores GCS [place] coma scale eye opening: Spontaneous [place] coma scale verbal response: Orientated [place] coma scale motor response: Obey commands [place] coma scale total score: 15 Quality MIPS - Admit I confirm the patient?s Advance Care Plan is present, Code status is documented, Surrogate decision maker is in patient?s record [If Yes, STOP here]: Yes
[2020-07-25 06:46] LABS: Add Manual Diff / Slide Review NO; Basophils Absolute Auto 100 /uL (0-100); Basophils Percent Auto 0.9 % (0-2); Eosinophils Absolute Auto 700 /uL (0-450); Eosinophils Percent Auto 7.1 % (2-4); Hemoglobin 11.9 g/dL (12.0-16.0); Lymphocytes Absolute Auto 3300 /uL (1100-4500); Lymphocytes Percent Auto 33.7 % (25-40); Mean Corpuscular HGB Conc 33.1 % (30-36); Mean Corpuscular Hemoglobin 28.3 PG (26-34); Mean Corpuscular Volume 85.5 fL (80-100); Monocytes Absolute Auto 700 /uL (0-900); Monocytes Percent Auto 7.5 % (3-14); Neutrophils Absolute Auto 4900 /uL (1500-7000); Neutrophils Percent Auto 50.8 % (50-75); Platelet Count 294 X10^3/uL (150-400); Red Blood Cell Count 4.22 X10^6/uL (4.0-5.2); Red Cell Distribution Width 12.9 % (11.6-14.8); White Blood Cell Count 9.7 X10^3/uL (4.5-11.0)
[2020-07-25 06:52] LABS: Blood Urea Nitrogen 17 mg/dL (7-17); Calcium 9.2 mg/dL (8.4-10.2); Carbon Dioxide 24 mmol/L (22-32); Chloride 104 mmol/L (98-107); Cholesterol 161 mg/dL (140-199); Estimated Glomerular Filt Rate > 60.0 mL/min (>60); Glucose 144 mg/dL (80-110); HDL Cholesterol 39 mg/dL (40-60); HEMOLYSIS 16 (0-50); LDL Cholesterol Calculated 55 mg/dL (<100); Magnesium 1.9 mg/dL (1.6-2.3); Potassium 4.7 mmol/L (3.4-5.1); Sodium 139 mmol/L (137-145); Triglycerides 333 mg/dL (35-150)
[2020-07-25 06:58] LABS: Hemoglobin A1C% w Est Avg Glu 7.4 % (4.0-6.0)
[2020-07-25 07:03] LABS: Troponin I < 0.012 ng/mL (0.01-0.034)
--- NOTE | 2020-07-25 07:20 | DI.ECHO.S_ITS ---
:Reason For Study: HYPERTENSIVE URGENCY, PAF, ABNORMAL EKG : :Ordering Physician: CARLA : :CHECO Performed By: Veronica Calloway : :Referring: CHECO AGUIRRE : + + Interpretation Summary The left ventricular cavity is small. The left ventricle is hyperdynamic. There is no echo evidence for significant left ventricular outflow tract obstruction. Left ventricular wall thickness is mildly increased. The ejection fraction is estimated to be 70-75%. The right ventricle is normal in size and function. No significant valvular pathology seen. The IVC is of normal diameter and collapses greater than 50% with a sniff. This suggests a low right atrial pressure of 3 mm Hg. There is mild luminal irregularity and echogenicity in the abdominal aorta, suggestive of aortic atherosclerotic disease. Mild atherosclerotic plaque(s) in the aortic arch. Procedure: A two-dimensional transthoracic echocardiogram with color flow and Doppler was performed. The study quality was technically adequate. There is no prior echocardiogram noted for this patient. The patient was in sinus rhythm with heart rates between 65-72 bpm during the exam. Left Ventricle: The left ventricular cavity is small. Left ventricular wall thickness is mildly increased. There is no echo evidence for significant left ventricular outflow tract obstruction. There is no thrombus. A false chord is noted (normal variant). The left ventricle is hyperdynamic. The ejection fraction is estimated to be 70-75%. There are no focal wall motion abnormalities. MV E/A: 0.70 Med Peak E' Kyle: 4.0 cm/sec E/E' med: 18.0. Right Ventricle: The right ventricle is normal in size and function. Atria: The left atrial size is normal. Right atrial size is normal. There is no Doppler evidence for an interatrial shunt. Mitral Valve: There is mild mitral annular calcification. There is trace mitral regurgitation. Aortic Valve: The aortic valve opens well. The aortic valve is trileaflet. There is no aortic valve stenosis. No aortic regurgitation is present. Tricuspid Valve: The tricuspid valve is normal in structure and function. There is trace tricuspid regurgitation. The right ventricular systolic pressure is estimated to be at least 27 mmHg based on an estimated right atrial pressure of 3 mm Hg. Pulmonic Valve: The pulmonic valve is not well seen, but is grossly normal. There is no pulmonic valvular regurgitation. Great Vessels: The aortic root is normal size. The ascending aorta could not be visualized. There is mild luminal irregularity and echogenicity in the abdominal aorta, suggestive of aortic atherosclerotic disease. Mild atherosclerotic plaque(s) in the aortic arch. The IVC is of normal diameter and collapses greater than 50% with a sniff. This suggests a low right atrial pressure of 3 mm Hg. Pericardium/ Pleura There is no pericardial effusion. There is no pleural effusion. MMode/2D Measurements & Calculations LVIDd: 3.4 cm LVOT diam: 1.8 cm LVIDs: 2.4 cm Ao root diam: 2.5 cm FS: 30.9 % Ao Arch Diam (Prox Trans): 2.2 cm EPSS: 0.36 cm IVSd: 1.3 cm LVPWd: 1.2 cm LV vu. diameter/BSA (cm/m^2): 2.9 LV sys. diameter/BSA (cm/m^2): 2.0 LA A2 area: 12.4 cm2 RA long axis: 4.1 cm LA A4 area: 12.6 cm2 RA area: 10.1 cm2 LA length (vol): 4.2 cm RA vol: 21.5 ml LA vol: 31.4 ml RA : 17.9 ml/m2 LA vol index: 26.2 ml/m2 IVC diam: 1.0 cm RVD1 (basal): 2.5 cm TAPSE: 1.8 cm Doppler Measurements & Calculations Ao V2 max: 136.7 cm/sec LVOT Max Kyle: 80.7 cm/sec Ao V2 mean: 90.1 cm/sec LV V1 max P.6 mmHg Ao max P.5 mmHg LV V1 VTI: 20.2 cm Ao mean P.7 mmHg ASHLEY(I,D): 1.8 cm2 Ao V2 VTI: 28.8 cm ASHLEY(V,D): 1.5 cm2 sev ratio: 0.70 ASHLEY indexed to BSA (cm^2/m^2): 1.5 MV E max kyle: 72.2 cm/sec TR max kyle: 242.4 cm/sec MV A max kyle: 103.6 cm/sec TR max P.5 mmHg MV E/A: 0.70 PA V2 max: 72.5 cm/sec Med Peak E' Kyle: 4.0 cm/sec PA V2 mean: 51.8 cm/sec E/E' med: 18.0 PA mean P.2 mmHg Lat Peak E' Kyle: 5.0 cm/sec PA pr(Accel): 10.5 mmHg E/E' lat: 14.4 E/e' average: 16.2 MV dec time: 0.23 sec SV(LVOT): 50.4 ml Reading Physician:11:18 AM
[2020-07-25] MEDS: SOTALOL 80 MG TABLET 40 MG PO (08:52)
[2020-07-25] MEDS: ASPIRIN EC 81 MG TABLET PO (08:52)
[2020-07-25] MEDS: MAGNESIUM OXIDE 400 MG TABLET PO (08:52)
[2020-07-25] MEDS: METFORMIN XR 500 MG TABLET PO (08:52)
[2020-07-25] MEDS: lisinopriL 20 MG TABLET PO (08:52)
[2020-07-25] MEDS: APIXABAN 5 MG TABLET PO (08:52)
[2020-07-25] MEDS: AMLODIPINE 5 MG TABLET PO (08:52)
[2020-07-25] MEDS: MYCOPHENOLATE MOFETIL 250 MG 500 EACH PO (08:53)
[2020-07-25] MEDS: TACROLIMUS 1 MG 2 EACH PO (08:53)
--- NOTE | 2020-07-25 11:47 | CM.DANOTE ---
DCP: Case received, EMR reviewed and met with patient. Introduced self and role. Was able to obtain information from patient regarding her baseline activity status prior to hospitalization, as well as her current living situation. DCP assessment completed with information currently available. Patient is a 64 year old female who admitted yesterday afternoon to the care of the hospitalist team. PCP: Dr. Robison. Payer: confirmed: Medicare/[employer]. Patient came to the hospital via private vehicle secondary to having high blood pressure. Patient is here for a cardiac work up and is having echo and stress test today. Patient has history of kidney transplant, and is also under the care of a box sealing inspector, Dr. Dejesus. Met with patient during rounds, as well as one on one. During rounds, daughter was at bedside. Patient is alert and oriented, she resides with her spouse, Kai, in [place]. She mentioned that she is still driving, does have a cane and walker for home use if needed. Patient indicated that she can do most activities in her home, if she gets fatigued, she will use a stool to sit on when in the kitchen. P: DCP to continue to follow. Patient should be able to go home when medically stable as long as BP is controlled, and after her test results come in. Felisha Newman, RN/[employer]
[2020-07-25] MEDS: ETHACRYNIC ACID 25MG TAB 1 EACH PO (12:15)
--- NOTE | 2020-07-25 13:22 | PM.TREADMILL ---
Cardiac Stress Test Report Referral & Results Date Patient Seen: 07/25/20 Time Patient Seen: 13:22 Requesting provider: Kassy Mohan Indication: hypertension Rest ECG: sinus rhythm with nonspecific ST abnormalities Procedure Note: After Lexiscan injection, had minimal dyspnea but nausea and dry heaves and no chest pain After Lexiscan injection no significant ST changes; no ectopy Aminoph 100 mg IV given with resolution of nausea and dry heaves Impression: Normal Lexiscan stress test Nuclear images pending Please note: Actual ECG tracings can be found in the PACS system.
[2020-07-25] MEDS: INSULIN LISPRO 100 UNIT/ML 3ML VIAL SUBCUT (14:47)
--- NOTE | 2020-07-25 15:20 | PC.NURSE ---
Cardiac: No c/p. Tele has been in sr. BP has remained controlled w/in MD setting. Hopes to d/c home later today.
--- NOTE | 2020-07-25 18:21 | PM.DS.1 ---
History of Present Illness History of Present Illness Date Patient Seen: 07/25/20 Chief complaint: BLOOD PRESSURE IS HIGH HEADACHE Narrative: Ms. Yunier Metzger is a 64-year-old female patient with a past medical history significant for coronary artery disease status post ND, paroxysmal atrial fibrillation anticoagulated on apixaban, [id number] diabetes type 2 kidney failure with kidney transplant, hyperlipidemia, GERD, osteoporosis who presents to the ER with high blood pressure and headache. She reports last Thursday that she had a blood pressure in 188 at which time she felt dizzy and did have to falls. The patient states she has had elevated blood pressures at home over the last 2 weeks with pressures into the 170s and 180s. She has contact your primary care provider and has appointment scheduled. Patient states her blood pressure and blood sugars have been elevated over the last 2 weeks since she had an episode of atrial fibrillation with palpitations. She reports her blood sugar this morning was 172. Patient has a transplant kidney in the right lower quadrant and is currently on immunotherapy with CellCept and tacrolimus. She reports no visual changes, gait disturbance or speech difficulties. She has had no weakness however does endorse intermittent numbness and tingling of the right leg. She has had no recent illness and denies fevers or chills, nasal congestion or sore throat. She has had no chest pain or pressure, her last episode of palpitations was 2 weeks ago. She reports mild general exertional dyspnea but no shortness of breath arrest, cough or wheezing. She denies complaints of abdominal pain, nausea vomiting or diarrhea. She denies urinary symptoms of urgency frequency or burning. Upon arrival to the ER the patient's temperature 98.1?, heart rate of 74, blood pressure 238/112, respirations 14 saturating 98% on room air. Initial EKG finds sinus rhythm at 67 with T-wave inversion in lead 1, lead 2, aVL, V3 through V6. The chest x-ray reveals no acute findings. The patient is given labetalol 10 mg with improvement in blood pressure after which in repeat EKG finds improvement however persistent ST inversion in lead 1, aVL and V2 through 6. On laboratory analysis she has white count of 12.0, hemoglobin of 12.5, hematocrit of 37.6 and platelets of 352. She has a PT of 15 point, INR 1.3 and PTT of 43. Her sodium is 134, potassium is 3.6 in her BUN is 14 with a creatinine 0.72. Nonfasting glucose is 123. Her liver functions are all within normal limits. Her magnesium is low at 1.1. Her total CK is 6.8 a troponin less than 0.012. Her COVID screening is negative. In the ER the patient received labetalol 10 mg IV x1 and is admitted to the hospitalist service for hypertensive urgency and abnormal EKG requiring further monitoring and evaluation. Discharge Providers Provider Date of admission: 07/24/20 18:30 Discharge Date: 07/25/20 Primary care physician: Abelardo Robison DO Consults: 07/24/20 20:19 Consult to Discharge Planning Routine Comment: Discharge provider: Kassy Mohan MD Summary Hospital Course Discharge Diagnosis: 1. Hypertensive urgency 2. Atrial fibrillation 3.Type 2 diabetes 4. Hyperlipidemia 5. History of type 2 ND, abnormal EKG, stress test negative 6. History of coronary disease 7.History of kidney transplant Hospital Course: Patient was admitted to the hospital for markedly elevated blood pressure and concerning EKG changes during this visit. The patient had her blood pressure medications adjusted. Amlodipine was added to her regimen at 5 mg per day. She remained hypertensive and that was increased to 10 mg per day at discharge. Patient had no further chest pain during the hospital stay. She underwent Lexiscan stress testing which was negative for any reversible ischemia. Patient's blood sugars were somewhat elevated during the hospital stay. Her metformin was increased from 500-1000 twice daily. A glycohemoglobin was elevated at 7.4%. Patient had no further complaints. She was deemed appropriate for discharge. Arrangements were made for her to discharge home. Status at Discharge Cognitive/behavioral status at discharge: oriented Functional status at discharge: independent ambulation Overall status at discharge: patient is back to baseline Time Spent with Patient Time spent: Less than 30 minutes Exam Vital Signs (past 8 hours): - 07/25/20 12:24 07/25/20 16:00 07/25/20 17:31 Temperature 98.0 F 98.5 F 98.1 F Pulse Rate 76 78 80 Respiratory Rate 19 17 17 Blood Pressure 140/85 132/79 135/77 Pulse Oximetry 100 98 97 Oxygen Delivery Method Room Air Oxygen Flow Rate 0 Narrative Exam Narrative: Pleasant female in no obvious distress Lungs: Clear to auscultation Cardiac exam: Regular rate and rhythm normal S1-S2 Abdomen: Soft nontender nondistended Extremities: No edema Objective Labs Result Diagrams: 07/25/20 06:20 07/25/20 06:20 Labs: Laboratory Results - last 24 hr 07/24/20 07/25/20 07/25/20 22:55 06:20 06:20 WBC 9.7 RBC 4.22 Hgb 11.9 L Hct 36.0 MCV 85.5 MCH 28.3 MCHC 33.1 RDW 12.9 Plt Count 294 Neut % (Auto) 50.8 Lymph % (Auto) 33.7 [place] % (Auto) 7.5 Eos % (Auto) 7.1 H Baso % (Auto) 0.9 Neut # (Auto) 4900 Lymph # (Auto) 3300 [place] # (Auto) 700 Eos # (Auto) 700 H Baso # (Auto) 100 Sodium 139 Potassium 4.7 Chloride 104 Carbon Dioxide 24 BUN 17 Creatinine 0.85 Estimated GFR > 60.0 BUN/Creatinine Ratio 20.0 Glucose 144 H Hemoglobin A1c Calcium 9.2 Magnesium 1.9 Troponin I < 0.012 < 0.012 Triglycerides 333 H Cholesterol 161 LDL Cholesterol, Calc 55 HDL Cholesterol 39 L 07/25/20 06:20 WBC RBC Hgb Hct MCV MCH MCHC RDW Plt Count Neut % (Auto) Lymph % (Auto) [place] % (Auto) Eos % (Auto) Baso % (Auto) Neut # (Auto) Lymph # (Auto) [place] # (Auto) Eos # (Auto) Baso # (Auto) Sodium Potassium Chloride Carbon Dioxide BUN Creatinine Estimated GFR BUN/Creatinine Ratio Glucose Hemoglobin A1c 7.4 H Calcium Magnesium Troponin I Triglycerides Cholesterol LDL Cholesterol, Calc HDL Cholesterol COUNT INCLUDES THE [facility] Medical History Atrial fibrillation with rapid ventricular response Compression fracture of L3 lumbar vertebra Diabetes type 2, controlled Herniated nucleus pulposus, L1-2 Hyperlipidemia Osteoporosis Type 2 ND (myocardial infarction) Surgical History History of bladder suspension procedure Kidney transplant recipient Tubal ligation status Family History Father Lung cancer Mother Kidney disease Sister Myocardial infarct Brother Myocardial infarct Social History household members: spouse Smoking Status: Never smoker alcohol intake: never Discharge Assessment & Plan Assessment and Plan Assessment: 1. Hypertensive urgency 2. Abnormal EKG, with a history of coronary disease, status post stress test 3. Type 2 diabetes 4. Hyperlipidemia 5. History of renal transplant Plan of Treatment: Discharge home on medications as prescribed Follow-up with Dr. Cade next week Follow-up with Dr. Dejesus as scheduled Discharge Plan Discharge Plan Patient Disposition: Home Discharge orders & Medications Prescriptions: New amlodipine 10 mg tablet 10 mg PO DAILY Qty: 30 RF: 0 metformin 1,000 mg tablet 1,000 mg PO BID Qty: 60 RF: 0 Continued tacrolimus [Prograf] 1 MG capsule 2 mg PO BID Qty: 0 RF: 0 mycophenolate mofetil [CellCept] 250 MG capsule 250 mg PO BID Qty: 0 RF: 0 multivitamin [Multiple Vitamins] 1 EACH tablet 1 tab PO QDAY Qty: 0 RF: 0 pravastatin 40 MG tablet 40 mg PO QPM Qty: 0 RF: 0 lisinopril 20 mg tablet 20 mg PO DAILY RF: 0 ethacrynic acid 25 mg tablet 25 mg PO DAILY RF: 0 pantoprazole 40 mg tablet,delayed release (DR/EC) 40 mg PO DAILY RF: 0 apixaban 2.5 mg tablet 5 mg PO BID RF: 0 ibandronate [Boniva] 150 mg tablet 150 mg PO QMONTH RF: 0 magnesium oxide 400 mg (241.3 mg magnesium) tablet 400 mg PO DAILY RF: 0 paroxetine HCl 10 mg tablet 10 mg PO DAILY RF: 0 sotalol 80 mg tablet 40 mg PO BID RF: 0 Discontinued metformin [Glucophage XR] 500 MG tablet extended release 24 hr 500 mg PO BID Qty: 0 RF: 0 Follow up/Referrals: Abelardo Robison DO [Primary Care Provider] - Discharge Health Status Multidrug resistant organism: No MDRO Diet/Activity/Treatments Diet: Carb-consistent/Diabetic, Low-sodium and Low-cholesterol Visit Report/Discharge Packet Instructions: DI for Hyperthyroidism, DI for Chest Pain Discharge Data Primary Care Provider: Abelardo Robison Attending Provider: Kassy Mohan
--- NOTE | 2020-07-25 18:54 | PC.NURSE ---
Dr. Mohan has generated discharge orders. Pt and pt's daughter (in room) confirm Dr. Mohan has seen them and spoken to them. Pt is moving ad felisa in room and denies chest pain. Daughter is present. Pt took diet well. Pt was given insulin late in day just before shift change dayshift to evening shift when fed as pt NPO for stress test earlier in day. Tele removed after ICU informed and midline iv removed by gianna RN, Bridgette. Pressure dressing applied as pt on blood thinners. Discharge instructions given to pt and pt's daughter in written and verbal format. Questions answered as appropriate. Encouraged follow up re this hospitalization with pcp. Pt and pt's daughter verbalize understanding and agreement. Pt's home meds were delivered to pt and pt's daughter personally by in house pharmacistBrii. Pt left hospital, with pt's daughter accounting for all valuables, in stable condition via wheelchair with [employer] escort.
--- NOTE | 2020-07-27 11:39 | PC.NURSE ---
late entry; NS infusion initiated 07/24 at 2133, complete 07/25 at 1054.
== END 2020-07-25 18:00 | disposition home or self-care (01) ==
LOC: ED 18:02 → AC 18:30
PROVIDERS: Nurse Practitioner Adult Health; Admitting Provider Internal Medicine; Emergency Provider Emergency Medicine; PCP Family Medicine; Referring Provider Emergency Medicine; Visit Provider Internal Medicine
DX: I16.0 Hypertensive urgency (principal); I25.10 Atherosclerotic heart disease of native coronary artery without angina pectoris; I48.0 Paroxysmal atrial fibrillation; Z79.01 Long term (current) use of anticoagulants; Z94.0 Kidney transplant status; E78.5 Hyperlipidemia, unspecified; K21.9 Gastro-esophageal reflux disease without esophagitis; M81.0 Age-related osteoporosis without current pathological fracture; D84.89 Other immunodeficiencies; R94.31 Abnormal electrocardiogram [ECG] [EKG]; R07.9 Chest pain, unspecified; Z20.822 Contact with and (suspected) exposure to COVID-19; Z79.84 Long term (current) use of oral hypoglycemic drugs
CPT/HCPCS: 36415; 71045; 78452; 80048; 80053; 80061; 81003; 82550; 82962; 83036; 83690; 83735; 84484; 85025; 85610; 85730; 87635; 93005; 93017; 93306; 94762; 96361; 96374; 96375; 99284; C9803; G0378; A9502; C9113; J1815; J2785; J3475

== ENCOUNTER 2021-06-14 20:32 | Emergency (ER) | payer MEDICARE, OTHER, SELFPAY ==
[2020-07-24 23:36] VITALS: BMI 46.7
[2021-06-14 20:36] VITALS: BP 173/74; PULSE 86; RESP 15; TEMP 36.9; O2SAT 99; BMI 19.3
--- NOTE | 2021-06-14 21:27 | ED.GENADULT ---
HPI - General Adult General Chief complaint: Fever Stated complaint: SIDE OF LEFT LEG PAIN BUTT CHEECK Time Seen by Provider: 06/14/21 20:54 Source: patient Mode of arrival: Ambulatory History of Present Illness HPI narrative: Patient is a 65-year-old female who is here for evaluation of left lower back/buttock discomfort. She states the symptoms started a couple days ago after working. There was not a specific incident that caused the discomfort. She did take some Tylenol prior to arrival today which seemed to help her symptoms somewhat. No fevers. No urinary symptoms. She states she has had some issues with diarrhea recently. She has been on Imodium. Has a follow-up with GI the middle of next week. She also states she has had fevers and chills for the past couple months. Related Data Home Medications Medication Instructions Recorded Confirmed multivitamin (Multiple Vitamins) 1 tab PO QDAY #0 12/01/16 08/22/20 mycophenolate mofetil 250 mg 250 mg PO BID #0 12/01/16 08/22/20 capsule (CellCept) pravastatin 40 mg tablet 40 mg PO QPM #0 12/01/16 08/22/20 tacrolimus 1 mg capsule, 2 mg PO BID #0 12/01/16 08/22/20 immediate-release (Prograf) apixaban 2.5 mg tablet 5 mg PO BID 05/07/20 08/22/20 ibandronate 150 mg tablet (Boniva) 150 mg PO QMONTH 05/07/20 08/22/20 magnesium oxide 400 mg (241.3 mg 400 mg PO DAILY 05/07/20 08/22/20 magnesium) tablet paroxetine HCl 10 mg tablet 10 mg PO DAILY 05/07/20 08/22/20 sotalol 80 mg tablet 40 mg PO BID 05/07/20 08/22/20 ethacrynic acid 25 mg tablet 25 mg PO DAILY 07/24/20 08/22/20 lisinopril 20 mg tablet 20 mg PO DAILY 07/24/20 08/22/20 pantoprazole 40 mg tablet,delayed 40 mg PO DAILY 07/24/20 08/22/20 release Previous Rx's Medication Instructions Recorded amlodipine 10 mg tablet 10 mg PO DAILY #30 tab 07/25/20 metformin 1,000 mg tablet 1,000 mg PO BID #60 tab 07/25/20 Allergies Allergy/AdvReac Type Severity Reaction Status Date / Time hydrocodone Allergy Intermediate Vomiting Verified 06/14/21 20:39 Sulfa (Sulfonamide Allergy Intermediate HIVES, RED Verified 06/14/21 20:39 Antibiotics) SKIN, ITCHY [SULFA (SULFONAMIDE ANTIBIOTICS)] Review of Systems Constitutional Constitutional: Reports as per HPI and Reports system reviewed and no additional complaints, except as documented Gastrointestinal Gastrointestinal: Reports as per HPI and Reports system reviewed and no additional complaints, except as documented Genitourinary Genitourinary: Reports system reviewed and no additional complaints, except as documented and Reports as per HPI Musculoskeletal Musculoskeletal: Reports system reviewed and no additional complaints, except as documented and Reports as per HPI Integumentary/Breasts Skin/Breast: Reports system reviewed and no additional complaints, except as documented Hematologic/Lymphatic On Anticoagulants: No Patient History Medical History Atrial fibrillation with rapid ventricular response Compression fracture of L3 lumbar vertebra Diabetes type 2, controlled Herniated nucleus pulposus, L1-2 Hyperlipidemia Osteoporosis Type 2 UT (myocardial infarction) Surgical History History of bladder suspension procedure Kidney transplant recipient Tubal ligation status Family History Father Lung cancer Mother Kidney disease Sister Myocardial infarct Brother Myocardial infarct Social History household members: spouse Smoking Status: Never smoker alcohol intake: never Smoking Status: Never smoker alcohol intake frequency: holidays/special occasions only Substance Use Type: does not use Exam Initial Vital Signs Initial Vital Signs: Vital Signs Temperature 98.5 F 06/14/21 20:36 Pulse Rate 86 06/14/21 20:36 Respiratory Rate 15 06/14/21 20:36 Blood Pressure 173/74 H 06/14/21 20:36 Pulse Oximetry 99 06/14/21 20:36 HENFL Head: normal to inspection and normocephalic Back/Spine/Pelvis Other: Patient has discomfort over the SI joint on the left. Skin General: no rashes or lesions noted Neuro General: patient alert, patient awake and moves all extremities Extrem Other: Left lower extremity unremarkable. Course Vital Signs Vital signs: Vital Signs - 8 hr 06/14/21 20:36 Temperature 98.5 F Pulse Rate 86 Respiratory Rate 15 Blood Pressure 173/74 H Pulse Oximetry 99 Medical Decision Making MDM Narrative Medical decision making narrative: Patient has isolated discomfort over the SI joint on the left. Low suspicion for cauda equina. Is afebrile here. Is no longer having diarrhea so I informed her that she should stop taking the loperamide. Did inform her that she should continue with her appointment with the GI doctor at the middle next week. No indication for radiologic studies is I have low suspicion for fracture. Discussed that she should continue with the Tylenol. She expressed understanding and agreement. Discharge Plan Departure Patient Disposition: Home Clinical Impression: Sacroiliac joint pain Instructions: DI for Hip Pain Activity Restrictions/Additional Instructions: Your discomfort is located over the area of your hip called the sacroiliac joint. I suspect that this is caused by arthritis. Recommend that you continue to take Tylenol and/or ibuprofen for discomfort. Keep all of your scheduled appointments specifically with your GI provider next week. Return to the emergency department for any new symptoms. Prescriptions: No Action tacrolimus [Prograf] 1 MG capsule 2 mg PO BID Qty: 0 0RF mycophenolate mofetil [CellCept] 250 MG capsule 250 mg PO BID Qty: 0 0RF multivitamin [Multiple Vitamins] 1 EACH tablet 1 tab PO QDAY Qty: 0 0RF pravastatin 40 MG tablet 40 mg PO QPM Qty: 0 0RF lisinopril 20 mg tablet 20 mg PO DAILY 0RF ethacrynic acid 25 mg tablet 25 mg PO DAILY 0RF pantoprazole 40 mg tablet,delayed release (DR/EC) 40 mg PO DAILY 0RF amlodipine 10 mg tablet 10 mg PO DAILY Qty: 30 0RF metformin 1,000 mg tablet 1,000 mg PO BID Qty: 60 0RF apixaban 2.5 mg tablet 5 mg PO BID 0RF ibandronate [Boniva] 150 mg tablet 150 mg PO QMONTH 0RF magnesium oxide 400 mg (241.3 mg magnesium) tablet 400 mg PO DAILY 0RF paroxetine HCl 10 mg tablet 10 mg PO DAILY 0RF sotalol 80 mg tablet 40 mg PO BID 0RF Referrals: Abelardo Robison DO [Primary Care Provider] -
== END 2021-06-14 21:36 | disposition home or self-care (01) ==
PROVIDERS: Emergency Provider Emergency Medicine; PCP Family Medicine
DX: M25.552 Pain in left hip (principal)
CPT/HCPCS: 99281

== ENCOUNTER 2024-06-03 15:51 | Emergency (ER) | payer MEDICARE, OTHER, SELFPAY ==
[2020-07-24 23:36] VITALS: BMI 46.7
[2024-06-03] VITALS (15 sets, daily range): BP systolic 140–199; BP diastolic 68–91; PULSE 63–96; RESP 16–37; TEMP 36.8; O2SAT 95–100; BMI 18.1
--- NOTE | 2024-06-03 16:01 | EKG_ITS ---
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
--- NOTE | 2024-06-03 16:01 | DI.RAD.S_ITS ---
PROCEDURE: XR CHEST 1V INDICATIONS: chest pain TECHNIQUE: One view of the chest was acquired. COMPARISON: [facility], CR, XR CHEST 1 VIEW, 09/27/2021, 18:27. FINDINGS: Surgical changes and devices: Cholecystectomy clips, numerous clips project over the arms. Lungs and pleura: Lungs are clear. No pleural effusions or pneumothorax. Mediastinum: Mediastinal contours appear normal. Heart size is normal. Bones and chest wall: No suspicious bony lesions. Overlying soft tissues appear unremarkable. IMPRESSION: No acute cardiopulmonary abnormality is seen. Dictated by: Ranjit Randhawa M.D. on 06/03/2024 at 16:53 Approved by: Ranjit Randhawa M.D. on 06/03/2024 at 16:54
--- NOTE | 2024-06-03 16:22 | ED.NAVMDI ---
HPI - Nausea/Vomiting/Diarrhea <Mehreen Epstein MD - Last Filed: 06/07/24 07:17> General Chief complaint: Nausea/Vomiting/Diarrhea Stated complaint: weakness, dizziness, nausea Time Seen by Provider: 06/03/24 15:58 Source: patient Mode of arrival: Ambulatory History of Present Illness HPI Narrative: 68-year-old woman 20+ years post renal transplant follow up by Dr. Dejesus, type 2 diabetes, atrial fibrillation, hyperlipidemia, coronary artery disease with prior ND presents weakness has been increasing for a week, poor balance, complaining of feeling lightheaded little oral intake increasing nausea. She has had intermittent episodes of diarrhea for greater than a year for which she uses Imodium. This does not seem to have changed. She is continuing to make urine, not complaining of focal neurologic findings, no fevers, cough, chills. It is unclear what the inciting event was that led her to the ER today versus yesterday or tomorrow for her chronic issues. Related Data Home Medications Medication Instructions Recorded Confirmed multivitamin (Multiple Vitamins 1 tab PO QDAY ##0 12/01/16 08/22/20 tablet) mycophenolate mofetil 250 mg 250 mg PO BID ##0 12/01/16 08/22/20 capsule (CellCept) pravastatin 40 mg tablet 40 mg PO QPM ##0 12/01/16 08/22/20 tacrolimus 1 mg capsule, 2 mg PO BID ##0 12/01/16 08/22/20 immediate-release (Prograf) apixaban 2.5 mg tablet 5 mg PO BID 05/07/20 08/22/20 ibandronate 150 mg tablet (Boniva) 150 mg PO QMONTH 05/07/20 08/22/20 magnesium oxide 400 mg (241.3 mg 400 mg PO DAILY 05/07/20 08/22/20 magnesium) tablet paroxetine HCl 10 mg tablet 10 mg PO DAILY 05/07/20 08/22/20 sotalol 80 mg tablet 40 mg PO BID 05/07/20 08/22/20 ethacrynic acid 25 mg tablet 25 mg PO DAILY 07/24/20 08/22/20 lisinopril 20 mg tablet 20 mg PO DAILY 07/24/20 08/22/20 pantoprazole 40 mg tablet,delayed 40 mg PO DAILY 07/24/20 08/22/20 release Previous Rx's Medication Instructions Recorded amlodipine 10 mg tablet 10 mg PO DAILY #30 tabs 07/25/20 metformin 1,000 mg tablet 1,000 mg PO BID #60 tabs 07/25/20 Allergies Allergy/AdvReac Type Severity Reaction Status Date / Time Sulfa (Sulfonamide Allergy Intermediate HIVES, RED Verified 06/14/21 20:39 Antibiotics) SKIN, ITCHY [SULFA (SULFONAMIDE ANTIBIOTICS)] hydrocodone AdvReac Intermediate Vomiting Verified 06/03/24 16:03 Review of Systems <Mehreen Epstein MD - Last Filed: 06/07/24 07:17> Review of Systems Narrative: Pertinent positive and negative findings as per HPI Patient History <Mehreen Epstein MD - Last Filed: 06/07/24 07:17> Medical History Atrial fibrillation with rapid ventricular response Compression fracture of L3 lumbar vertebra Diabetes type 2, controlled Herniated nucleus pulposus, L1-2 Hyperlipidemia Osteoporosis Type 2 ND (myocardial infarction) Surgical History History of bladder suspension procedure Kidney transplant recipient Tubal ligation status Family History Father Lung cancer Mother Kidney disease Sister Myocardial infarct Brother Myocardial infarct Social History household members: spouse Smoking Status: Never smoker alcohol intake: never Smoking Status: Never smoker alcohol intake frequency: holidays/special occasions only Exam <Mehreen Epstein MD - Last Filed: 06/07/24 07:17> Initial Vital Signs Initial Vital Signs: Vital Signs Pulse Rate 65 06/03/24 16:00 Blood Pressure 199/81 H 06/03/24 16:00 Pulse Oximetry 99 06/03/24 16:00 General: Frail, older-appearing woman no acute distress HEENT: Moist mucous membranes, normal sclera with reactive pupils, Neck: No JVD, supple Respiratory: Lungs are clear to auscultation, no wheezing no rales no rhonchi. Full and symmetrical air movement Cardiac: Regular rate and rhythm no murmurs no bruits Abdomen: Soft, nontender, no rebound or guarding, no flank pain Skin: Warm and dry, no rashes Neurologic: Grossly neurologically intact with no obvious asymmetries or abnormalities Extremities: No trauma, no lower extremity edema Psych: Cooperative, appropriate insight and affect <Ludwin Ceballos MD - Last Filed: 06/04/24 05:30> Initial Vital Signs Initial Vital Signs: Vital Signs Pulse Rate 65 06/03/24 16:00 Blood Pressure 199/81 H 06/03/24 16:00 Pulse Oximetry 99 06/03/24 16:00 Course <Mehreen Epstein MD - Last Filed: 06/07/24 07:17> Orders Ordered: Discontinued Medications Aspirin (Aspirin 81 Mg Chew Tab) 324 mg PO NOW ONE Stop: 06/03/24 16:02 Last Admin: 06/03/24 18:09 Dose: Not Given Documented By: Sodium Chloride (Normal Saline 0.9%) 1,000 mls @ 1,000 mls/hr IV BOLUS ONE Stop: 06/03/24 19:41 Last Infusion: 06/03/24 19:45 Dose: Infused Documented By: Admin: 06/03/24 18:45 Dose: 1,000 mls/hr Documented By: Ondansetron HCl (Ondansetron 4 Mg Odt Prepack) 1 bottle MISC DIRECTED ONE Stop: 06/03/24 23:03 Last Admin: 06/03/24 23:08 Dose: 1 bottle Documented By: Vital Signs Vital signs: Vital Signs - 8 hr 06/03/24 21:38 Pulse Rate 76 Pulse Oximetry 98 Oxygen Delivery Method Room Air <Ludwin Ceballos MD - Last Filed: 06/04/24 05:30> Orders Ordered: Discontinued Medications Aspirin (Aspirin 81 Mg Chew Tab) 324 mg PO NOW ONE Stop: 06/03/24 16:02 Last Admin: 06/03/24 18:09 Dose: Not Given Documented By: Sodium Chloride (Normal Saline 0.9%) 1,000 mls @ 1,000 mls/hr IV BOLUS ONE Stop: 06/03/24 19:41 Last Infusion: 06/03/24 19:45 Dose: Infused Documented By: Admin: 06/03/24 18:45 Dose: 1,000 mls/hr Documented By: Ondansetron HCl (Ondansetron 4 Mg Odt Prepack) 1 bottle MISC DIRECTED ONE Stop: 06/03/24 23:03 Last Admin: 06/03/24 23:08 Dose: 1 bottle Documented By: AB Vital Signs Vital signs: Vital Signs - 8 hr 06/03/24 21:38 Pulse Rate 76 Pulse Oximetry 98 Oxygen Delivery Method Room Air MDM - Nausea/Vomiting/Diarrhea <Mehreenera Epstein MD - Last Filed: 06/07/24 07:17> Lab Data 06/03/24 16:45 06/03/24 19:55 Labs: Lab Results 06/03/24 06/03/24 06/03/24 Range/Units 16:45 19:50 19:55 WBC 8.4 (4.5-11.0) X10^3/uL RBC 3.79 L (4.0-5.2) X10^6/uL Hgb 10.6 L (12.0-16.0) g/dL Hct 32.0 L (36-46) % MCV 84.4 (80-100) fL MCH 28.1 (26-34) PG MCHC 33.3 (30-36) % RDW 13.1 (11.6-14.8) % Plt Count 348 (150-400) X10^3/uL Neut % (Auto) 44.3 L (50-75) % Lymph % (Auto) 40.3 H (25-40) % [place] % (Auto) 11.6 (3-14) % Eos % (Auto) 3.1 (2-4) % Baso % (Auto) 0.7 (0-2) % Neut # (Auto) 3700 (4006-3168) /uL Lymph # (Auto) 3400 (0176-3422) /uL [place] # (Auto) 1000 H (0-900) /uL Eos # (Auto) 300 (0-450) /uL Baso # (Auto) 100 (0-100) /uL PT 14.5 H (9.4-12.5) SECONDS INR 1.3 (0.9-1.3) APTT 46 H (25.1-36.5) SECONDS Sodium 127 L 129 L (137-145) mmol/L Potassium 4.2 3.8 (3.4-5.1) mmol/L Chloride 95 L 100 (98-107) mmol/L Carbon Dioxide 19 L 18 L (22-32) mmol/L BUN 27 H 23 H (7-17) mg/dL Creatinine 1.12 H 0.97 (0.52-1.04) mg/dL Estimated GFR 53 L > 60 (>60) mL/min BUN/Creatinine Ratio 24.1 H 23.7 H (6-22) Glucose 100 192 H (80-110) mg/dL Calcium 9.1 7.8 L (8.4-10.2) mg/dL Magnesium 1.2 L (1.6-2.3) mg/dL Total Bilirubin 0.2 (0.2-1.3) mg/dL AST 31 (14-36) IU/L ALT 20 (<35) IU/L Alkaline Phosphatase 72 (38-126) U/L Total Creatine Kinase 62 (30-135) U/L Troponin I < 0.012 < 0.012 (0.01-0.034) ng/mL NT-Pro-B Natriuret Pep 684 H (<125) pg/mL Total Protein 7.9 (6.3-8.2) g/dL Albumin 4.5 (3.5-5.0) g/dL Globulin 3.4 (1.7-4.1) g/dL Albumin/Globulin Ratio 1.3 (1.0-2.8) Lipase 294 (23-300) U/L MDM Narrative Medical decision making narrative: CC: 68-year-old woman with kidney transplant for the last 20 years, chronic diarrhea presents with weakness and dizziness of uncertain duration at least a week possibly up to multiple years Complicating co-morbidities: Kidney transplant, hypertension, hyperlipidemia, diabetes, atrial fibrillation Data collected from: patient, daughter Medical records reviewed: Discharge summary from July 25 after admission for elevated blood pressure with a headache Differential considered: Electrolyte abnormality, kidney failure, viral syndrome, congestive heart failure Exam documented above, pertinent findings include: Frail-appearing woman in no acute distress with no acute findings on exam today Lab Test results independently reviewed as above. Pertinent findings: Independently reviewed EKG: Imaging studies independently reviewed: Consultations: Treatments: Re-evaluations: Discussion: <Ludwin Ceballos MD - Last Filed: 06/04/24 05:30> Lab Data Labs: Lab Results 03/10/2106/03/24 06/03/24 Range/Units 16:45 19:50 19:55 WBC 8.4 (4.5-11.0) X10^3/uL RBC 3.79 L (4.0-5.2) X10^6/uL Hgb 10.6 L (12.0-16.0) g/dL Hct 32.0 L (36-46) % MCV 84.4 (80-100) fL MCH 28.1 (26-34) PG MCHC 33.3 (30-36) % RDW 13.1 (11.6-14.8) % Plt Count 348 (150-400) X10^3/uL Neut % (Auto) 44.3 L (50-75) % Lymph % (Auto) 40.3 H (25-40) % [place] % (Auto) 11.6 (3-14) % Eos % (Auto) 3.1 (2-4) % Baso % (Auto) 0.7 (0-2) % Neut # (Auto) 3700 (3437-1722) /uL Lymph # (Auto) 3400 (0071-0584) /uL [place] # (Auto) 1000 H (0-900) /uL Eos # (Auto) 300 (0-450) /uL Baso # (Auto) 100 (0-100) /uL PT 14.5 H (9.4-12.5) SECONDS INR 1.3 (0.9-1.3) APTT 46 H (25.1-36.5) SECONDS Sodium 127 L 129 L (137-145) mmol/L Potassium 4.2 3.8 (3.4-5.1) mmol/L Chloride 95 L 100 (98-107) mmol/L Carbon Dioxide 19 L 18 L (22-32) mmol/L BUN 27 H 23 H (7-17) mg/dL Creatinine 1.12 H 0.97 (0.52-1.04) mg/dL Estimated GFR 53 L > 60 (>60) mL/min BUN/Creatinine Ratio 24.1 H 23.7 H (6-22) Glucose 100 192 H (80-110) mg/dL Calcium 9.1 7.8 L (8.4-10.2) mg/dL Magnesium 1.2 L (1.6-2.3) mg/dL Total Bilirubin 0.2 (0.2-1.3) mg/dL AST 31 (14-36) IU/L ALT 20 (<35) IU/L Alkaline Phosphatase 72 (38-126) U/L Total Creatine Kinase 62 (30-135) U/L Troponin I < 0.012 < 0.012 (0.01-0.034) ng/mL NT-Pro-B Natriuret Pep 684 H (<125) pg/mL Total Protein 7.9 (6.3-8.2) g/dL Albumin 4.5 (3.5-5.0) g/dL Globulin 3.4 (1.7-4.1) g/dL Albumin/Globulin Ratio 1.3 (1.0-2.8) Lipase 294 (23-300) U/L ECG Data Attestation: I personally reviewed and interpreted this ECG as follows: Interpretation: Normal sinus rhythm with rate of 63, no obvious ST segment elevation or depression changes. T-wave inversions noted in lateral leads. SD 126, QRS 80, QTC 468. MDM Narrative Medical decision making narrative: CC: 68-year-old woman with kidney transplant for the last 20 years, chronic diarrhea presents with weakness and dizziness of uncertain duration at least a week possibly up to multiple years Complicating co-morbidities: Kidney transplant, hypertension, hyperlipidemia, diabetes, atrial fibrillation Data collected from: patient, daughter Medical records reviewed: Discharge summary from July 25 after admission for elevated blood pressure with a headache Differential considered: Electrolyte abnormality, kidney failure, viral syndrome, congestive heart failure Exam documented above, pertinent findings include: Frail-appearing woman in no acute distress with no acute findings on exam today Lab Test results independently reviewed as above. Pertinent findings: Independently reviewed EKG: Imaging studies independently reviewed: Consultations: Treatments: Re-evaluations: Discussion: 06/03/2024Joe Thompson. Signout from Dr Epstein. 68-year-old female with history of remote kidney transplant, had weakness and dizziness, ongoing diarrhea for which she takes Imodium, screening labs showed increased BUN and slight increase creatinine compared to recent baseline labs, possible JAYMIE, initial troponin negative/nonmeasurable. EKG shows lateral T-wave inversion, no chest pain. Repeat interval troponin pending. IV fluids ordered. We will repeat BNP with repeat troponin as well. Discussed plan with patient and family, who expressed understanding. Assumed interim care. Repeat labs show some improvement in renal function, serum CO2 slightly decreased from previous study. Unclear significance. No chest pain. Repeat troponin again negative/unmeasurable. 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 Dejesus at [facility]. They seemed to be aware of this plan, in agreement. [id number], case discussed with Dr. Dejesus her chemical production machine operator, relayed comparison BUN and creatinine from 2020, and 1st and subsequent labs here, he thinks the patient can be discharged home, no specific change in Nephrology follow up plan. Further cardiac workup as an outpatient for now. They would like to go home. Discharged home with daughter. Follow up with Nephrology as planned. Home pack ODT Zofran to use if needed for control of any nausea if recurrent. Continue chronic medications otherwise advised. Further cardiac workup as an outpatient for now. Follow up with PCP advised early next next week. Return precautions. Discharged home with family. Photo copy of EKG handed to patient and family, with explanation of abnormal changes, no chemical evidence for heart attack at this time, no ongoing nausea or chest pain. Further workup as an outpatient for now. Follow up with their PCP early this week advised. They expressed understanding. DC home with family. Discharge Plan Departure Patient Disposition: Home Clinical Impression: Generalized weakness, History of renal transplant, Dehydration, Diarrhea Activity Restrictions/Additional Instructions: Ms Metzger, You reported history of previous kidney transplant, followed by Nephrology at [facility] Dr. Dejesus, with ongoing chronic diarrhea, some nausea and decreased oral intake, labs today showed some low sodium and increased renal function compared to prior studies 2020. IV fluids given, modest improvement in renal function labs. Case discussed with your chemical production machine operator who felt there was no other treatment to offer today and felt that you were able to go home and follow up with him as planned for routine scheduled follow up. EKG and blood testing did not show evidence of heart attack at this time. Further cardiac workup if needed as an outpatient for now. Consider recheck with your regular doctor early next week to review your nausea and diarrhea symptoms. Continue taking Imodium as needed. Home pack of oral dissolvable formulation ondansetron to control nausea to use if needed. Continue your chronic medications otherwise as planned. Recheck earlier this/nearest emergency department for any change worsening symptoms or any concerns prior. Thank you for allowing our team to evaluate you today. Prescriptions: No Action tacrolimus [Prograf] 1 MG capsule 2 mg PO BID Qty: 0 mycophenolate mofetil [CellCept] 250 MG capsule 250 mg PO BID Qty: 0 multivitamin [Multiple Vitamins] 1 EACH tablet 1 tab PO QDAY Qty: 0 pravastatin 40 MG tablet 40 mg PO QPM Qty: 0 lisinopril 20 mg tablet 20 mg PO DAILY ethacrynic acid 25 mg tablet 25 mg PO DAILY pantoprazole 40 mg tablet,delayed release (DR/EC) 40 mg PO DAILY amlodipine 10 mg tablet 10 mg PO DAILY Qty: 30 0RF metformin 1,000 mg tablet 1,000 mg PO BID Qty: 60 0RF apixaban 2.5 mg tablet 5 mg PO BID ibandronate [Boniva] 150 mg tablet 150 mg PO QMONTH magnesium oxide 400 mg (241.3 mg magnesium) tablet 400 mg PO DAILY paroxetine HCl 10 mg tablet 10 mg PO DAILY sotalol 80 mg tablet 40 mg PO BID Referrals: Miscellaneous,Doctor, MD [Primary Care Provider] - Stand Alone Forms: Patient Portal/API/Survey, Work Release Note
[2024-06-03 17:02] LABS: Add Manual Diff / Slide Review NO; Basophils Absolute Auto 100 /uL (0-100); Basophils Percent Auto 0.7 % (0-2); Eosinophils Absolute Auto 300 /uL (0-450); Eosinophils Percent Auto 3.1 % (2-4); Hemoglobin 10.6 g/dL (12.0-16.0); Lymphocytes Absolute Auto 3400 /uL (1100-4500); Lymphocytes Percent Auto 40.3 % (25-40); Mean Corpuscular HGB Conc 33.3 % (30-36); Mean Corpuscular Hemoglobin 28.1 PG (26-34); Mean Corpuscular Volume 84.4 fL (80-100); Monocytes Absolute Auto 1000 /uL (0-900); Monocytes Percent Auto 11.6 % (3-14); Neutrophils Absolute Auto 3700 /uL (1500-7000); Neutrophils Percent Auto 44.3 % (50-75); Platelet Count 348 X10^3/uL (150-400); Red Blood Cell Count 3.79 X10^6/uL (4.0-5.2); Red Cell Distribution Width 13.1 % (11.6-14.8); White Blood Cell Count 8.4 X10^3/uL (4.5-11.0)
[2024-06-03 17:04] LABS: INR 1.3 (0.9-1.3); Prothrombin Time 14.5 SECONDS (9.4-12.5)
[2024-06-03 17:07] LABS: PTT Partial Thromboplastin Tim 46 SECONDS (25.1-36.5)
[2024-06-03 17:11] LABS: Alanine Aminotransferase 20 IU/L (<35); Albumin 4.5 g/dL (3.5-5.0); Albumin Globulin Ratio 1.3 (1.0-2.8); Alkaline Phosphatase 72 U/L (38-126); Aspartate Aminotransferase 31 IU/L (14-36); BUN Creatinine Ratio 24.1 (6-22); Bilirubin Total 0.2 mg/dL (0.2-1.3); Blood Urea Nitrogen 27 mg/dL (7-17); Calcium 9.1 mg/dL (8.4-10.2); Carbon Dioxide 19 mmol/L (22-32); Chloride 95 mmol/L (98-107); Creatine Kinase 62 U/L (30-135); Estimated Glomerular Filt Rate 53 mL/min (>60); Globulin 3.4 g/dL (1.7-4.1); Glucose 100 mg/dL (80-110); HEMOLYSIS < 15 (0-50); Lipase 294 U/L (23-300); Magnesium 1.2 mg/dL (1.6-2.3); Potassium 4.2 mmol/L (3.4-5.1); Sodium 127 mmol/L (137-145); Total Protein 7.9 g/dL (6.3-8.2)
[2024-06-03 17:22] LABS: NT-proBNP (BNP-Adult 18+) 684 pg/mL (<125); Troponin I < 0.012 ng/mL (0.01-0.034)
[2024-06-03] MEDS: SODIUM CHLORIDE 0.9% 1,000 ML 1000 ML IV (18:45)
[2024-06-03 20:13] LABS: BUN Creatinine Ratio 23.7 (6-22); Blood Urea Nitrogen 23 mg/dL (7-17); Calcium 7.8 mg/dL (8.4-10.2); Carbon Dioxide 18 mmol/L (22-32); Chloride 100 mmol/L (98-107); Estimated Glomerular Filt Rate > 60 mL/min (>60); Glucose 192 mg/dL (80-110); HEMOLYSIS < 15 (0-50); Potassium 3.8 mmol/L (3.4-5.1); Sodium 129 mmol/L (137-145)
[2024-06-03 20:55] LABS: Troponin I < 0.012 ng/mL (0.01-0.034)
[2024-06-03] MEDS: ONDANSETRON 4 MG ODT PREPACK 1 BOTTLE MISC (23:08)
== END 2024-06-03 23:12 | disposition home or self-care (01) ==
PROVIDERS: Emergency Medicine; Emergency Provider Emergency Medicine
DX: R53.1 Weakness (principal); E86.0 Dehydration; R42 Dizziness and giddiness; R19.7 Diarrhea, unspecified; R11.0 Nausea; Z94.0 Kidney transplant status; E11.9 Type 2 diabetes mellitus without complications; I48.91 Unspecified atrial fibrillation; Z79.01 Long term (current) use of anticoagulants; E78.5 Hyperlipidemia, unspecified; I25.2 Old myocardial infarction; I25.10 Atherosclerotic heart disease of native coronary artery without angina pectoris
CPT/HCPCS: 36415; 71045; 80048; 80053; 82550; 83690; 83735; 83880; 84484; 85025; 85610; 85730; 93005; 99284

== ENCOUNTER 2024-06-23 14:43 | Emergency (ER) | payer MEDICARE, OTHER, SELFPAY ==
[2020-07-24 23:36] VITALS: BMI 46.7
[2024-06-23] VITALS (19 sets, daily range): BP systolic 130–208; BP diastolic 60–90; PULSE 82–105; RESP 18; TEMP 37–37.3; O2SAT 93–100; BMI 17.8
--- NOTE | 2024-06-23 16:12 | EKG_ITS ---
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
[2024-06-23 16:53] LABS: Add Manual Diff / Slide Review NO; Basophils Absolute Auto 100 /uL (0-100); Basophils Percent Auto 0.5 % (0-2); Eosinophils Absolute Auto 100 /uL (0-450); Eosinophils Percent Auto 0.5 % (2-4); Hematocrit 28.4 % (36-46); Hemoglobin 9.2 g/dL (12.0-16.0); Lymphocytes Absolute Auto 2200 /uL (1100-4500); Lymphocytes Percent Auto 10.5 % (25-40); Mean Corpuscular HGB Conc 32.3 % (30-36); Mean Corpuscular Hemoglobin 27.3 PG (26-34); Mean Corpuscular Volume 84.4 fL (80-100); Monocytes Absolute Auto 1200 /uL (0-900); Neutrophils Absolute Auto 17000 /uL (1500-7000); Neutrophils Percent Auto 82.5 % (50-75); Platelet Count 596 X10^3/uL (150-400); Red Blood Cell Count 3.37 X10^6/uL (4.0-5.2); Red Cell Distribution Width 13.6 % (11.6-14.8); White Blood Cell Count 20.7 X10^3/uL (4.5-11.0)
[2024-06-23 17:05] LABS: Alanine Aminotransferase 22 IU/L (<35); Albumin 4.2 g/dL (3.5-5.0); Albumin Globulin Ratio 1.2 (1.0-2.8); Alkaline Phosphatase 142 U/L (38-126); Aspartate Aminotransferase 30 IU/L (14-36); BUN Creatinine Ratio 12.9 (6-22); Bilirubin Total 0.5 mg/dL (0.2-1.3); Blood Urea Nitrogen 15 mg/dL (7-17); Calcium 9.3 mg/dL (8.4-10.2); Carbon Dioxide 18 mmol/L (22-32); Chloride 95 mmol/L (98-107); Estimated Glomerular Filt Rate 51 mL/min (>60); Globulin 3.6 g/dL (1.7-4.1); Glucose 264 mg/dL (80-110); HEMOLYSIS < 15 (0-50); Lipase 71 U/L (23-300); Potassium 4.4 mmol/L (3.4-5.1); Sodium 127 mmol/L (137-145); Total Protein 7.8 g/dL (6.3-8.2)
[2024-06-23 18:06] LABS: Lactate (Lactic Acid) 2.7 mmol/L (0.7-2.1)
[2024-06-23] MEDS: SODIUM CHLORIDE 0.9% 1,000 ML 1000 ML IV (18:22)
[2024-06-23 18:25] LABS: Procalcitonin 0.357 ng/mL (<0.5)
--- NOTE | 2024-06-23 18:46 | ED.ABDPAIN ---
HPI - Abdominal Pain General Chief Complaint: Abdominal Pain Stated Complaint: on and Off Stomach pain Time Seen by Provider: 06/23/24 18:07 History of Present Illness HPI narrative: Patient 68-year-old female history 20 years plus renal transplant, type 2 diabetes atrial fibrillation on Eliquis hyperlipidemia coronary artery disease prior [place] presenting today with abdominal pain bloating and diarrhea. She reports that she has had diarrhea ongoing for a number of years. It sounds like she had some recent stool samples done at [facility] but not sure with the results were. Mild nausea no vomiting. Feels like her abdomen is more bloated than normal today. Denies any bloody stool she was not passed out no chest pain or palpitations. Related Data Home Medications Medication Instructions Recorded Confirmed multivitamin (Multiple Vitamins 1 tab PO QDAY ##0 12/01/16 08/22/20 tablet) mycophenolate mofetil 250 mg 250 mg PO BID ##0 12/01/16 08/22/20 capsule (CellCept) pravastatin 40 mg tablet 40 mg PO QPM ##0 12/01/16 08/22/20 tacrolimus 1 mg capsule, 2 mg PO BID ##0 12/01/16 08/22/20 immediate-release (Prograf) apixaban 2.5 mg tablet 5 mg PO BID 05/07/20 08/22/20 ibandronate 150 mg tablet (Boniva) 150 mg PO QMONTH 05/07/20 08/22/20 magnesium oxide 400 mg (241.3 mg 400 mg PO DAILY 05/07/20 08/22/20 magnesium) tablet paroxetine HCl 10 mg tablet 10 mg PO DAILY 05/07/20 08/22/20 sotalol 80 mg tablet 40 mg PO BID 05/07/20 08/22/20 ethacrynic acid 25 mg tablet 25 mg PO DAILY 07/24/20 08/22/20 lisinopril 20 mg tablet 20 mg PO DAILY 07/24/20 08/22/20 pantoprazole 40 mg tablet,delayed 40 mg PO DAILY 07/24/20 08/22/20 release Previous Rx's Medication Instructions Recorded amlodipine 10 mg tablet 10 mg PO DAILY #30 tabs 07/25/20 metformin 1,000 mg tablet 1,000 mg PO BID #60 tabs 07/25/20 Allergies Allergy/AdvReac Type Severity Reaction Status Date / Time Sulfa (Sulfonamide Allergy Intermediate HIVES, RED Verified 06/14/21 20:39 Antibiotics) SKIN, ITCHY [SULFA (SULFONAMIDE ANTIBIOTICS)] hydrocodone AdvReac Intermediate Vomiting Verified 06/03/24 16:03 Patient History Medical History Atrial fibrillation with rapid ventricular response Compression fracture of L3 lumbar vertebra Diabetes type 2, controlled Herniated nucleus pulposus, L1-2 Hyperlipidemia Osteoporosis Type 2 [place] (myocardial infarction) Surgical History History of bladder suspension procedure Kidney transplant recipient Tubal ligation status Family History Father Lung cancer Mother Kidney disease Sister Myocardial infarct Brother Myocardial infarct Social History household members: spouse Smoking Status: Never smoker alcohol intake: never Smoking Status: Never smoker alcohol intake frequency: holidays/special occasions only Exam Initial Vital Signs Initial Vital Signs: Vital Signs Temperature 98.6 F 06/23/24 16:07 Pulse Rate 86 06/23/24 16:07 Respiratory Rate 18 06/23/24 16:07 Blood Pressure 130/60 06/23/24 16:07 Pulse Oximetry 96 06/23/24 16:07 Oxygen Delivery Method Room Air 06/23/24 16:07 GENERAL: Alert 68-year-old female and in [no acute] distress. HEENT: Head atraumatic,EOMI, pupils reactive, face symmetric, [moist] mucous membranes CARDIOVASCULAR: Regular rate and rhythm without murmurs, rubs or gallops. RESPIRATORY: Breath sounds equal bilaterally, no wheezes rales or rhonchi. ABDOMEN: Soft, soft no distention mild bloating no guarding no rebound EXTREMITIES: Normal range of motion, no clubbing or edema. Neurovascularly intact NEUROLOGICAL: Alert and oriented x4.Normal gait and speech. Cranial nerves II through XII grossly intact. SKIN: Warm, dry, no laceration, no petechiae, no rashes or lesions. Course Orders Ordered: ED Orders 06/23/24 20:18 CT abdomen pelvis w con Stat 06/23/24 22:52 Chest [XR chest 1V] Stat Discontinued Medications Sodium Chloride (Normal Saline 0.9%) 1,000 mls @ 1,000 mls/hr IV BOLUS ONE Stop: 06/23/24 19:08 Last Infusion: 06/23/24 19:34 Dose: Infused Documented By: Admin: 06/23/24 18:22 Dose: 1,000 mls/hr Documented By: ROSE Sodium Chloride (Normal Saline 0.9%) 500 mls @ 1,000 mls/hr IV BOLUS ONE Stop: 06/23/24 21:24 Last Infusion: 06/23/24 22:01 Dose: Infused Documented By: Admin: 06/23/24 21:27 Dose: 1,000 mls/hr Documented By: NATHALY Piperacillin Sod/Tazobactam (Sod 4.5 gm/ Sodium Chloride) 100 mls @ 200 mls/hr IV NOW ONE Stop: 06/23/24 22:12 Last Infusion: 06/23/24 22:55 Dose: Infused Documented By: Admin: 06/23/24 22:22 Dose: 200 mls/hr Documented By: NATHALY Sodium Chloride (Normal Saline 0.9%) 1,000 mls @ 125 mls/hr IV CONT DYLAN Last Infusion: 06/24/24 02:28 Dose: Infused Documented By: Admin: 06/24/24 01:20 Dose: 125 mls/hr Documented By: ISAURA Ondansetron HCl (Ondansetron 4 Mg/2 Ml Inj) 4 mg IV NOW PRN PRN Reason: Nausea And Vomiting Ondansetron HCl (Ondansetron 4 Mg Odt) 4 mg PO NOW PRN PRN Reason: Nausea And Vomiting Vital Signs Vital signs: Vital Signs - 8 hr 06/23/24 20:55 06/23/24 21:00 06/23/24 21:26 Temperature Pulse Rate 104 H 104 H Blood Pressure 190/86 H Pulse Oximetry 93 97 Oxygen Delivery Method 06/23/24 21:26 06/23/24 21:30 06/23/24 21:30 Temperature Pulse Rate 101 H 101 H Blood Pressure 186/87 H Pulse Oximetry 98 98 Oxygen Delivery Method 06/23/24 22:00 06/23/24 22:00 06/23/24 22:30 Temperature Pulse Rate 101 H 101 H Blood Pressure 208/90 H Pulse Oximetry 98 97 Oxygen Delivery Method Room Air 06/23/24 22:59 06/23/24 22:59 06/23/24 23:00 Temperature Pulse Rate 105 H Blood Pressure 163/76 H 170/80 H Pulse Oximetry 97 Oxygen Delivery Method 06/23/24 23:00 06/23/24 23:04 06/23/24 23:30 Temperature 99.1 F Pulse Rate 104 H Blood Pressure 173/80 H Pulse Oximetry 97 Oxygen Delivery Method Room Air 06/23/24 23:30 06/24/24 00:00 06/24/24 00:00 Temperature Pulse Rate 100 H 107 H Blood Pressure 168/79 H Pulse Oximetry 95 97 Oxygen Delivery Method 06/24/24 00:30 06/24/24 00:30 06/24/24 01:00 Temperature Pulse Rate 106 H Blood Pressure 164/77 H 160/73 H Pulse Oximetry 95 Oxygen Delivery Method 06/24/24 01:00 06/24/24 01:30 06/24/24 01:30 Temperature Pulse Rate 102 H 104 H Blood Pressure 151/70 H Pulse Oximetry 97 97 Oxygen Delivery Method 06/24/24 02:00 06/24/24 02:00 Temperature Pulse Rate 101 H Blood Pressure 158/71 H Pulse Oximetry 98 Oxygen Delivery Method MDM - Abdominal Pain Lab Data 06/23/24 16:40 06/23/24 16:40 Labs: Lab Results 06/23/24 06/23/24 06/23/24 Range/Units 16:40 16:50 18:54 WBC 20.7 H (4.5-11.0) X10^3/uL RBC 3.37 L (4.0-5.2) X10^6/uL Hgb 9.2 L (12.0-16.0) g/dL Hct 28.4 L (36-46) % MCV 84.4 (80-100) fL MCH 27.3 (26-34) PG MCHC 32.3 (30-36) % RDW 13.6 (11.6-14.8) % Plt Count 596 H (150-400) X10^3/uL Neut % (Auto) 82.5 H (50-75) % Lymph % (Auto) 10.5 L (25-40) % [place] % (Auto) 6.0 (3-14) % Eos % (Auto) 0.5 L (2-4) % Baso % (Auto) 0.5 (0-2) % Neut # (Auto) 68418 H (3415-9991) /uL Lymph # (Auto) 2200 (6680-9394) /uL [place] # (Auto) 1200 H (0-900) /uL Eos # (Auto) 100 (0-450) /uL Baso # (Auto) 100 (0-100) /uL Sodium 127 L (137-145) mmol/L Potassium 4.4 (3.4-5.1) mmol/L Chloride 95 L (98-107) mmol/L Carbon Dioxide 18 L (22-32) mmol/L BUN 15 (7-17) mg/dL Creatinine 1.16 H (0.52-1.04) mg/dL Estimated GFR 51 L (>60) mL/min BUN/Creatinine Ratio 12.9 (6-22) Glucose 264 H (80-110) mg/dL Lactate 2.7 H (0.7-2.1) mmol/L Calcium 9.3 (8.4-10.2) mg/dL Total Bilirubin 0.5 (0.2-1.3) mg/dL AST 30 (14-36) IU/L ALT 22 (<35) IU/L Alkaline Phosphatase 142 H (38-126) U/L Total Protein 7.8 (6.3-8.2) g/dL Albumin 4.2 (3.5-5.0) g/dL Globulin 3.6 (1.7-4.1) g/dL Albumin/Globulin Ratio 1.2 (1.0-2.8) Lipase 71 (23-300) U/L Procalcitonin 0.357 (<0.5) ng/mL Urine RBC 0-1/hpf (0-5/HPF) Urine WBC 0-1/hpf (0-5/HPF) Ur Squamous Epith Cells 0-1 /hpf (0-5/HPF) Ur Transition Epith Cell 0-1/hpf (0-5/HPF) Urine Bacteria None seen (None) Hyaline Casts 1-5/lpf (None) Vol Urine Centrifuged 10ml (spun) Stl C. cayetanensis PCR Not detected (Not Detect) Stool Rotavirus (PCR) Not detected (Not Detect) Stool Adenovirus (PCR) Not detected (Not Detect) Stool Astrovirus (PCR) Not detected (Not Detect) Stool Cryptosporidium PCR Not detected (Not Detect) Stl E.coli Shiga Tox PCR Not detected (Not Detect) St Sh/Enteroin Ecoli PCR Not detected (Not Detect) Stl Enterotoxigenic E PCR Not detected (Not Detect) Stool EPEC (PCR) Not detected (Not Detect) Stl E. histolytica PCR Not detected (Not Detect) Stool Giardia Lamblia PCR Not detected (Not Detect) Stool Sapovirus (PCR) Not detected (Not Detect) Stl P. shigelloides PCR Not detected (Not Detect) St Y.enterocolitica PCR Not detected (Not Detect) Stool Vibrio (PCR) Not detected (Not Detect) Stl Vibrio cholerae PCR Not detected (Not Detect) Stl Enteroaggr Ecoli PCR Not detected (Not Detect) Stl Norovirus GI/GII PCR Not detected (Not Detect) Campylobacter (PCR) Not detected (Not Detect) C. difficile Tox (PCR) Not detected (Not Detect) Salmonella (PCR) Not detected (Not Detect) 06/23/24 Range/Units 19:50 WBC (4.5-11.0) X10^3/uL RBC (4.0-5.2) X10^6/uL Hgb (12.0-16.0) g/dL Hct (36-46) % MCV (80-100) fL MCH (26-34) PG MCHC (30-36) % RDW (11.6-14.8) % Plt Count (150-400) X10^3/uL Neut % (Auto) (50-75) % Lymph % (Auto) (25-40) % [place] % (Auto) (3-14) % Eos % (Auto) (2-4) % Baso % (Auto) (0-2) % Neut # (Auto) (8043-5096) /uL Lymph # (Auto) (4103-7282) /uL [place] # (Auto) (0-900) /uL Eos # (Auto) (0-450) /uL Baso # (Auto) (0-100) /uL Sodium (137-145) mmol/L Potassium (3.4-5.1) mmol/L Chloride (98-107) mmol/L Carbon Dioxide (22-32) mmol/L BUN (7-17) mg/dL Creatinine (0.52-1.04) mg/dL Estimated GFR (>60) mL/min BUN/Creatinine Ratio (6-22) Glucose (80-110) mg/dL Lactate 1.5 (0.7-2.1) mmol/L Calcium (8.4-10.2) mg/dL Total Bilirubin (0.2-1.3) mg/dL AST (14-36) IU/L ALT (<35) IU/L Alkaline Phosphatase (38-126) U/L Total Protein (6.3-8.2) g/dL Albumin (3.5-5.0) g/dL Globulin (1.7-4.1) g/dL Albumin/Globulin Ratio (1.0-2.8) Lipase (23-300) U/L Procalcitonin (<0.5) ng/mL Urine RBC (0-5/HPF) Urine WBC (0-5/HPF) Ur Squamous Epith Cells (0-5/HPF) Ur Transition Epith Cell (0-5/HPF) Urine Bacteria (None) Hyaline Casts (None) Vol Urine Centrifuged Stl C. cayetanensis PCR (Not Detect) Stool Rotavirus (PCR) (Not Detect) Stool Adenovirus (PCR) (Not Detect) Stool Astrovirus (PCR) (Not Detect) Stool Cryptosporidium PCR (Not Detect) Stl E.coli Shiga Tox PCR (Not Detect) St Sh/Enteroin Ecoli PCR (Not Detect) Stl Enterotoxigenic E PCR (Not Detect) Stool EPEC (PCR) (Not Detect) Stl E. histolytica PCR (Not Detect) Stool Giardia Lamblia PCR (Not Detect) Stool Sapovirus (PCR) (Not Detect) Stl P. shigelloides PCR (Not Detect) St Y.enterocolitica PCR (Not Detect) Stool Vibrio (PCR) (Not Detect) Stl Vibrio cholerae PCR (Not Detect) Stl Enteroaggr Ecoli PCR (Not Detect) Stl Norovirus GI/GII PCR (Not Detect) Campylobacter (PCR) (Not Detect) C. difficile Tox (PCR) (Not Detect) Salmonella (PCR) (Not Detect) Point of care testing: Urine Dip Bedside Urine Glucose Negative Bedside Urine Bilirubin - Negative Bedside Urine Ketone - Negative Urine Specific [place] 1.015 Bedside Urine Occult Blood - Negative Bedside Urine pH 5.5 Bedside Urine Protein + 30 Bedside Urine Urobilinogen - Negative Bedside Urine Nitrite - Negative Bedside Urine Leukocytes - Negative Esterase Imaging Data CT scan - abdomen/pelvis: Radiologist's Impression: PROCEDURE: CT ABDOMEN PELVIS W CON INDICATIONS: ab pain bloating high wbc TECHNIQUE: After the administration of intravenous contrast, axial sections acquired from the lung bases to the pubic symphysis. Coronal and sagittal reformats were performed. For radiation dose reduction, the following was used: automated exposure control, adjustment of mA and/or kV according to patient size. COMPARISON: [facility], CT, CT CHEST ABD PEL W CON, 11/19/2019, 21:37. FINDINGS: Image quality: Diagnostic Lower chest: Right lower lung consolidations. No pleural effusions. Coronary calcifications. Borderline cardiomegaly Liver: Unremarkable Gallbladder and biliary system: Cholecystectomy clips, ectatic biliary system again seen likely related to post cholecystectomy state Pancreas: No ductal dilation Spleen: Nonenlarged Adrenals: No discrete nodules Kidneys: Atrophic [place] kidneys bilaterally. Suspected small cysts are present. Right lower quadrant renal transplant. Multiple cysts are present. Some of the presumed cysts are seen intermediate attenuation for example at the lateral aspect measuring 1.8 cm. No definite solid renal mass. No hydronephrosis. There is mild edematous fat stranding adjacent to the transplant ureter. No obstructing calcified stone. Nonobstructing small calculi are seen in the [place] kidneys. Vessels and lymph nodes: Main portal vein is patent. No abdominal aortic aneurysm. No pathologic lymphadenopathy by size criteria. Bowel and peritoneum: No small bowel obstruction. Mild wall thickening throughout the distal colon and rectum. There is also involvement of the proximal transverse colon The appendix appears nondilated. No drainable abscess or ascites. Body wall: Unremarkable Pelvis: Bladder is unremarkable. The uterus is absent Bones: No aggressive appearing osseous abnormality. Suspect focal thecal sac stenosis at L1-L2 secondary to a prominent posterior osteophyte. IMPRESSION: Segmental areas of colitis and proctitis are suspected. Consider colonoscopy correlation if not up-to-date. No small bowel obstruction. No drainable abscess or ascites. Right lower lung suspected pneumonia partially seen. Consider future imaging surveillance to assess for resolution. Right lower quadrant renal transplant with mild ureteral fat stranding, correlate urinalysis for infection. No hydronephrosis or obstructing calcified stone. Multiple presumed cysts are seen in the right lower quadrant transplant kidney, although some are slightly above fluid attenuation possibly hemorrhagic or proteinaceous contents. Consider nonurgent ultrasound to ensure there are no solid components. Other findings above. Dictated by: Pancho Snow M.D. on 06/23/2024 at 21:23 Approved by: Pancho Snow M.D. on 06/23/2024 at 21:30 Chest x-ray: Radiologist's Impression: PROCEDURE: XR CHEST 1V INDICATIONS: right pnemonia TECHNIQUE: One view of the chest was acquired. COMPARISON: [facility], , XR CHEST 1V, 06/03/2024, 16:03. FINDINGS: Surgical changes and devices: Surgical clips in right upper quadrant compatible with prior cholecystectomy.. Lungs and pleura: New right pleural effusion and patchy consolidation of the right lung base. No pneumothorax. Left lung remains clear. Mediastinum: Mediastinal contours appear normal. Heart size is normal. Bones and chest wall: No suspicious bony lesions. Overlying soft tissues appear unremarkable. IMPRESSION: Right lower lobe pneumonia with associated parapneumonic effusion. Recommend follow up chest radiograph 4-6 weeks after treatment to document resolution of findings and/or return to baseline examination. Dictated by: Leighton Aguillon M.D. on 06/23/2024 at 23:39 Approved by: Leighton Aguillon M.D. on 06/23/2024 at 23:40 ECG Data Attestation: I personally reviewed and interpreted this ECG as follows: Interpretation: Sinus rhythm rate 86 [place] interval 116 QRS 68 QTC 476 mild artifact noted biphasic T-wave noted in V3 which is actually similar to prior, also noted persistent ST depression precordial leads V4 through V6 [facility] Narrative Medical decision making narrative: [facility] CC: Bloating diarrhea Complicating co-morbidities: Transplant kidney 20 years ago, hypertension atrial fibrillation on Eliquis coronary artery disease Data collected from: Patient and family Medical records reviewed: [facility] General records. Stool panel noted to be negative on 09/07/2023 Differential considered: [id number] disease infectious versus inflammatory colitis, pneumonia versus med Exam documented above, pertinent findings include: Awake alert nontoxic abdomen is soft nondistended breath sounds are clear pain is not out of proportion Lab Test results independently reviewed as above. Pertinent findings: WBC 20.7 Lactate 2.7 repeat 1.5 Sodium 127 previously is 129 potassium 4.4 chloride 95 carbon dioxide 18 BUN 15 creatinine 1.16 Bilirubin liver enzymes within normal limits alk-phos 142 lipase 71 GI panel negative Urinalysis no evidence of UTI Independently reviewed EKG as above No acute changes no ischemia there is persistent ST depression unchanged prior nt Imaging studies independently reviewed: CT abdominal scan does show colitis proctitis throughout the colon but not the small-bowel Checks x-ray does show right parapneumonic effusion and pneumonia Consultations: Dr. Casie lezama GI consult [id number] Dr. Powell Gi at [facility] at this time recommends holding Eliquis for colonoscopy in 48 hours treating conservatively with antibiotics unclear patient needs prednisone/steroids without colonoscopy. 12:26 Dr. Capsp hospitalist, at at this time does not need to be transferred for transplant issue can go to any hospital and be treated Dr. Damon, hospitalist at [facility] updated on patient's symptoms test results heavily accepts patient Treatments: Normal saline, Zosyn Re-evaluations: Abdomen is reexamined soft nontender nondistended remains hemodynamically stable Discussion: Patient is 68-year-old female presenting to [facility] with symptoms of some diarrhea bloating ongoing cough. She was found to have leukocytosis of 20 and lactic acid of 2.7. Blood cultures are pending. She is found to have colitis throughout her abdomen and pneumonia on her x-ray. Her abdomen is soft pain is not out of proportion low suspicion for mesenteric ischemia. Please see overall appears well nontoxic vitals are stable. Initial discussion with hospitalist here recommended that due to patient being a transplant patient want to patient at a higher level of care. Arrangements have been made for patient to go to [facility]. Discharge Plan Departure Patient Disposition: [facility] Clinical Impression: Colitis, Pneumonia, Acute hyponatremia Prescriptions: No Action tacrolimus [Prograf] 1 MG capsule 2 mg PO BID Qty: 0 mycophenolate mofetil [CellCept] 250 MG capsule 250 mg PO BID Qty: 0 multivitamin [Multiple Vitamins] 1 EACH tablet 1 tab PO QDAY Qty: 0 pravastatin 40 MG tablet 40 mg PO QPM Qty: 0 lisinopril 20 mg tablet 20 mg PO DAILY ethacrynic acid 25 mg tablet 25 mg PO DAILY pantoprazole 40 mg tablet,delayed release (DR/EC) 40 mg PO DAILY amlodipine 10 mg tablet 10 mg PO DAILY Qty: 30 0RF metformin 1,000 mg tablet 1,000 mg PO BID Qty: 60 0RF apixaban 2.5 mg tablet 5 mg PO BID ibandronate [Boniva] 150 mg tablet 150 mg PO QMONTH magnesium oxide 400 mg (241.3 mg magnesium) tablet 400 mg PO DAILY paroxetine HCl 10 mg tablet 10 mg PO DAILY sotalol 80 mg tablet 40 mg PO BID
[2024-06-23 19:18] LABS: Adenovirus F 40/41 Not Detected (Not Detect); Astrovirus Not Detected (Not Detect); Campylobacter Not Detected (Not Detect); Clostridium difficile toxin AB Not Detected (Not Detect); Cryptosporidium Not Detected (Not Detect); Cyclospora cayetanensis Not Detected (Not Detect); Entamoeba histolytica Not Detected (Not Detect); Enteroaggregative E.coli Not Detected (Not Detect); Enteropathogenic E.coli Not Detected (Not Detect); Enterotoxigenic E.coli It/st Not Detected (Not Detect); Giardia lamblia Not Detected (Not Detect); Norovirus GI/GII Not Detected (Not Detect); Plesiomonsa shigelloides Not Detected (Not Detect); Rotavirus A Not Detected (Not Detect); Salmonella Not Detected (Not Detect); Sapovirus Not Detected (Not Detect); Shiga-like toxin-prod E.coli Not Detected (Not Detect); Shigella/Enteroinvasive E.coli Not Detected (Not Detect); Vibrio Not Detected (Not Detect); Vibrio cholerae Not Detected (Not Detect); Yersinia enterocolitica Not Detected (Not Detect)
[2024-06-23 19:18] LABS: Bacteria Urine None Seen; Hyaline Casts Urine 1-5/LPF; RBC Urine 0-1/HPF (0-5/HPF); Squamous Epithelial Cell Urine 0-1 /HPF (0-5/HPF); Transitional Epi Cells Urine 0-1/HPF (0-5/HPF); Urine Volume 10mL (spun); WBC Urine 0-1/HPF (0-5/HPF)
[2024-06-23 19:34] LABS: Reflexed Lactate in 2 Hours Y
[2024-06-23 20:14] LABS: Lactate 2HR (Lactic Acid Rflx) 1.5 mmol/L (0.7-2.1)
--- NOTE | 2024-06-23 20:18 | DI.CT.S_ITS ---
PROCEDURE: CT ABDOMEN PELVIS W CON INDICATIONS: ab pain bloating high wbc TECHNIQUE: After the administration of intravenous contrast, axial sections acquired from the lung bases to the pubic symphysis. Coronal and sagittal reformats were performed. For radiation dose reduction, the following was used: automated exposure control, adjustment of mA and/or kV according to patient size. COMPARISON: [facility], CT, CT CHEST ABD PEL W CON, 11/19/2019, 21:37. FINDINGS: Image quality: Diagnostic Lower chest: Right lower lung consolidations. No pleural effusions. Coronary calcifications. Borderline cardiomegaly Liver: Unremarkable Gallbladder and biliary system: Cholecystectomy clips, ectatic biliary system again seen likely related to post cholecystectomy state Pancreas: No ductal dilation Spleen: Nonenlarged Adrenals: No discrete nodules Kidneys: Atrophic [place] kidneys bilaterally. Suspected small cysts are present. Right lower quadrant renal transplant. Multiple cysts are present. Some of the presumed cysts are seen intermediate attenuation for example at the lateral aspect measuring 1.8 cm. No definite solid renal mass. No hydronephrosis. There is mild edematous fat stranding adjacent to the transplant ureter. No obstructing calcified stone. Nonobstructing small calculi are seen in the [place] kidneys. Vessels and lymph nodes: Main portal vein is patent. No abdominal aortic aneurysm. No pathologic lymphadenopathy by size criteria. Bowel and peritoneum: No small bowel obstruction. Mild wall thickening throughout the distal colon and rectum. There is also involvement of the proximal transverse colon The appendix appears nondilated. No drainable abscess or ascites. Body wall: Unremarkable Pelvis: Bladder is unremarkable. The uterus is absent Bones: No aggressive appearing osseous abnormality. Suspect focal thecal sac stenosis at L1-L2 secondary to a prominent posterior osteophyte. IMPRESSION: Segmental areas of colitis and proctitis are suspected. Consider colonoscopy correlation if not up-to-date. No small bowel obstruction. No drainable abscess or ascites. Right lower lung suspected pneumonia partially seen. Consider future imaging surveillance to assess for resolution. Right lower quadrant renal transplant with mild ureteral fat stranding, correlate urinalysis for infection. No hydronephrosis or obstructing calcified stone. Multiple presumed cysts are seen in the right lower quadrant transplant kidney, although some are slightly above fluid attenuation possibly hemorrhagic or proteinaceous contents. Consider nonurgent ultrasound to ensure there are no solid components. Other findings above. Dictated by: Pancho Snow M.D. on 06/23/2024 at 21:23 Approved by: Pancho Snow M.D. on 06/23/2024 at 21:30
[2024-06-23] MEDS: SODIUM CHLORIDE 0.9% 500 ML 1000 ML IV (21:27)
[2024-06-23] MEDS: PIPERACILLIN/TAZO 4.5 GM in SODIUM CHLORIDE 0.9% 100 ML IV (22:22)
--- NOTE | 2024-06-23 22:52 | DI.RAD.S_ITS ---
PROCEDURE: XR CHEST 1V INDICATIONS: right pnemonia TECHNIQUE: One view of the chest was acquired. COMPARISON: [facility], CR, XR CHEST 1V, 06/03/2024, 16:03. FINDINGS: Surgical changes and devices: Surgical clips in right upper quadrant compatible with prior cholecystectomy.. Lungs and pleura: New right pleural effusion and patchy consolidation of the right lung base. No pneumothorax. Left lung remains clear. Mediastinum: Mediastinal contours appear normal. Heart size is normal. Bones and chest wall: No suspicious bony lesions. Overlying soft tissues appear unremarkable. IMPRESSION: Right lower lobe pneumonia with associated parapneumonic effusion. Recommend follow up chest radiograph 4-6 weeks after treatment to document resolution of findings and/or return to baseline examination. Dictated by: Leighton Aguillon M.D. on 06/23/2024 at 23:39 Approved by: Leighton Aguillon M.D. on 06/23/2024 at 23:40
[2024-06-24] VITALS: BP 168/79; PULSE 107; O2SAT 97
[2024-06-24 00:30] VITALS: BP 164/77; PULSE 106; O2SAT 95
[2024-06-24 01:00] VITALS: BP 160/73; PULSE 102; O2SAT 97
[2024-06-24] MEDS: SODIUM CHLORIDE 0.9% 1,000 ML 125 ML IV (01:20)
[2024-06-24 01:30] VITALS: BP 151/70; PULSE 104; O2SAT 97
[2024-06-24 02:00] VITALS: BP 158/71; PULSE 101; O2SAT 98
== END 2024-06-24 02:38 | disposition short-term general hospital (02) ==
PROVIDERS: Emergency Medicine; Emergency Provider Emergency Medicine
DX: K52.9 Noninfective gastroenteritis and colitis, unspecified (principal); J18.9 Pneumonia, unspecified organism; E87.1 Hypo-osmolality and hyponatremia; E11.9 Type 2 diabetes mellitus without complications; I48.91 Unspecified atrial fibrillation; Z79.01 Long term (current) use of anticoagulants; E78.5 Hyperlipidemia, unspecified; I25.2 Old myocardial infarction; Z86.79 Personal history of other diseases of the circulatory system
CPT/HCPCS: 36415; 71045; 74177; 80053; 81003; 81015; 83605; 83690; 84145; 85025; 87040; 87086; 87507; 93005; 93010; 96361; 96365; 99284; J2543; Q9967

== ENCOUNTER 2024-07-31 15:29 | Emergency (ER) | payer MEDICARE, OTHER, SELFPAY ==
[2020-07-24 23:36] VITALS: BMI 46.7
[2024-07-31] VITALS (13 sets, daily range): BP systolic 141–174; BP diastolic 66–79; PULSE 71–90; RESP 18–23; TEMP 36.8; O2SAT 95–100; BMI 17.8
--- NOTE | 2024-07-31 15:38 | DI.RAD.S_ITS ---
PROCEDURE: XR CHEST 1V INDICATIONS: Chest Pain TECHNIQUE: One view of the chest was acquired. COMPARISON: [facility], CR, XR CHEST 1V, 06/23/2024, 22:53. FINDINGS: Surgical changes and devices: None. Lungs and pleura: Lungs are clear. No pleural effusions or pneumothorax. Mediastinum: Mediastinal contours appear normal. Heart size is normal. Bones and chest wall: No suspicious bony lesions. Overlying soft tissues appear unremarkable. IMPRESSION: No acute cardiopulmonary abnormality is seen. Dictated by: Oscar Delcid M.D. on 07/31/2024 at 15:56 Approved by: Oscar Delcid M.D. on 07/31/2024 at 15:58
--- NOTE | 2024-07-31 15:38 | EKG_ITS ---
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
--- NOTE | 2024-07-31 15:38 | DI.RAD.S_ITS ---
PROCEDURE: XR WRIST RT MIN 3V INDICATIONS: pain and swelling, no known injury TECHNIQUE: 4 views of the wrist were acquired. COMPARISON: None. FINDINGS: Sensitivity is degraded from nonstandard positioning Bones: No fractures or dislocations. Chronic fracture of the ulnar styloid. Alignment of the carpal bones is not well evaluated secondary to patient positioning. No suspicious bony lesions. Mild osteoarthrosis of the base of the thumb. Soft tissues: No suspicious soft tissue calcifications. IMPRESSION: No acute bony abnormality. Dictated by: Oscar Delcid M.D. on 07/31/2024 at 15:54 Approved by: Oscar Delcid M.D. on 07/31/2024 at 15:55
--- NOTE | 2024-07-31 15:53 | ED.CHESTPAIN ---
HPI - Chest Pain <Odette Mere, DO - Last Filed: 08/01/24 18:14> General Chief Complaint: Chest Pain Stated Complaint: R Wrist Swelling, Dizzyness, Chest Heavy Time Seen by Provider: 07/31/24 15:52 Source: patient Mode of arrival: Ambulatory History of Present Illness HPI narrative: Patient is 68-year-old female history of post renal transplant, type 2 diabetes, atrial fibrillation, hyperlipidemia, coronary artery disease with prior OK, chronic hyponatremia, presenting today with chest heaviness. She reports that while sitting today she feels like she was having some chest heaviness. She noticed that she had some chest pain earlier lasted for about 5 minutes and then reports some chest heaviness. But now it has completely gone away. He was denies any sort of shortness of breath nausea vomiting. She has previously been hospitalized so for recent colitis. Waiting to see GI She was also concerned with her right wrist. Reports it is swollen she has been taking Tylenol for it does denies any injury. Reports she has been cooking does not feel like it is overuse or excessive. No numbness or tingling Patient is followed by Dr. Bowen with [facility]. Related Data Home Medications Medication Instructions Recorded Confirmed multivitamin (Multiple Vitamins 1 tab PO QDAY ##0 12/01/16 08/22/20 tablet) mycophenolate mofetil 250 mg 250 mg PO BID ##0 12/01/16 08/22/20 capsule (CellCept) pravastatin 40 mg tablet 40 mg PO QPM ##0 12/01/16 08/22/20 tacrolimus 1 mg capsule, 2 mg PO BID ##0 12/01/16 08/22/20 immediate-release (Prograf) apixaban 2.5 mg tablet 5 mg PO BID 05/07/20 08/22/20 ibandronate 150 mg tablet (Boniva) 150 mg PO QMONTH 05/07/20 08/22/20 magnesium oxide 400 mg (241.3 mg 400 mg PO DAILY 05/07/20 08/22/20 magnesium) tablet paroxetine HCl 10 mg tablet 10 mg PO DAILY 05/07/20 08/22/20 sotalol 80 mg tablet 40 mg PO BID 05/07/20 08/22/20 ethacrynic acid 25 mg tablet 25 mg PO DAILY 07/24/20 08/22/20 lisinopril 20 mg tablet 20 mg PO DAILY 07/24/20 08/22/20 pantoprazole 40 mg tablet,delayed 40 mg PO DAILY 07/24/20 08/22/20 release Previous Rx's Medication Instructions Recorded amlodipine 10 mg tablet 10 mg PO DAILY #30 tabs 07/25/20 metformin 1,000 mg tablet 1,000 mg PO BID #60 tabs 07/25/20 cephalexin 500 mg capsule 500 mg PO Q6H #28 caps 07/31/24 magnesium aspart,citrate,oxide 400 mg PO BID #4 caps 07/31/24 Allergies Allergy/AdvReac Type Severity Reaction Status Date / Time Sulfa (Sulfonamide Allergy Intermediate HIVES, RED Verified 07/31/24 15:33 Antibiotics) SKIN, ITCHY [SULFA (SULFONAMIDE ANTIBIOTICS)] hydrocodone AdvReac Intermediate Vomiting Verified 07/31/24 15:33 Patient History <Odette Severino DO - Last Filed: 08/01/24 18:14> Medical History Osteoporosis Herniated nucleus pulposus, L1-2 Compression fracture of L3 lumbar vertebra Atrial fibrillation with rapid ventricular response Hyperlipidemia Diabetes type 2, controlled Type 2 OK (myocardial infarction) Surgical History Tubal ligation status History of bladder suspension procedure Kidney transplant recipient Family History Father Lung cancer Mother Kidney disease Sister Myocardial infarct Brother Myocardial infarct Social History household members: spouse Smoking Status: Never smoker alcohol intake: never Smoking Status: Never smoker alcohol intake frequency: holidays/special occasions only Exam <Odette Severino DO - Last Filed: 08/01/24 18:14> Initial Vital Signs Initial Vital Signs: Vital Signs Temperature 98.3 F 07/31/24 15:33 Pulse Rate 85 07/31/24 15:33 Respiratory Rate 18 07/31/24 15:33 Blood Pressure 174/77 H 07/31/24 15:33 Pulse Oximetry 99 07/31/24 15:33 Oxygen Delivery Method Room Air 07/31/24 15:33 GENERAL: Alert pleasant well-appearing 68-year-old female and in no acute distress. HEENT: Head atraumatic,EOMI, pupils reactive, face symmetric, moist mucous membranes CARDIOVASCULAR: Regular rate and rhythm without murmurs, rubs or gallops. RESPIRATORY: Breath sounds equal bilaterally, no wheezes rales or rhonchi. ABDOMEN: Soft, nontender. Normoactive bowel sounds all 4 quadrants. No guarding or rebound. EXTREMITIES: Normal range of motion, no clubbing or edema. Neurovascularly intact NEUROLOGICAL: Alert and oriented x4.Normal gait and speech. Cranial nerves II through XII grossly intact. SKIN: Warm, dry, no laceration, no petechiae, no rashes or lesions. <Keith Mcclendon DO - Last Filed: 07/31/24 20:23> Initial Vital Signs Initial Vital Signs: Vital Signs Temperature 98.3 F 07/31/24 15:33 Pulse Rate 85 07/31/24 15:33 Respiratory Rate 18 07/31/24 15:33 Blood Pressure 174/77 H 07/31/24 15:33 Pulse Oximetry 99 07/31/24 15:33 Oxygen Delivery Method Room Air 07/31/24 15:33 Scores <Odette Severino DO - Last Filed: 08/01/24 18:14> HEART Score Heart Score Total: 6 <Keith Mcclendon DO - Last Filed: 07/31/24 20:23> HEART Score Heart Score history: Moderately Suspicious Heart Score EKG: Non-Specific repolarization disturbance Heart Score Age: > or = 65 years old Heart Score risk factors: > 3 risk factors or hx of atherosclerotic disease Heart Score troponin: < or = to normal limit Heart Score Total: 6 Course <Odette Severino DO - Last Filed: 08/01/24 18:14> Orders Ordered: Discontinued Medications Acetaminophen (Acetaminophen 325 Mg Tablet) 650 mg PO NOW ONE Stop: 07/31/24 16:14 Last Admin: 07/31/24 16:19 Dose: 650 mg Documented By: ROBERT Aspirin (Aspirin 81 Mg Chew Tab) 324 mg PO NOW ONE Stop: 07/31/24 15:39 Last Admin: 07/31/24 16:04 Dose: Not Given Documented By: ROBERT Cephalexin HCl (Cephalexin 250 Mg Capsule) 500 mg PO NOW ONE Stop: 07/31/24 20:16 Last Admin: 07/31/24 20:23 Dose: 500 mg Documented By: KEMI Magnesium Sulfate (Magnesium Sulfate) 2 gm in 50 mls @ 25 mls/hr IV NOW ONE Stop: 07/31/24 19:17 Last Infusion: 07/31/24 20:30 Dose: Infused Documented By: KEMI Co-signed By: ROBERT(2) Admin: 07/31/24 18:25 Dose: 25 mls/hr Documented By: ROBERT Co-signed By: MARC Vital Signs Vital signs: Vital Signs - 8 hr 07/31/24 15:33 07/31/24 15:54 07/31/24 16:00 Temperature 98.3 F Pulse Rate 85 82 90 Respiratory Rate 18 19 21 Blood Pressure 174/77 H Pulse Oximetry 99 Oxygen Delivery Method Room Air 07/31/24 16:03 07/31/24 16:03 07/31/24 16:30 Temperature Pulse Rate 83 87 Respiratory Rate 19 19 Blood Pressure 171/79 H Pulse Oximetry 95 100 Oxygen Delivery Method 07/31/24 16:36 07/31/24 16:36 07/31/24 17:00 Temperature Pulse Rate 84 Respiratory Rate 23 Blood Pressure 167/74 H 164/75 H Pulse Oximetry 97 Oxygen Delivery Method 07/31/24 17:00 07/31/24 17:30 07/31/24 17:30 Temperature Pulse Rate 80 79 Respiratory Rate 22 21 Blood Pressure 151/72 H Pulse Oximetry 99 98 Oxygen Delivery Method 07/31/24 18:02 07/31/24 18:30 07/31/24 19:00 Temperature Pulse Rate 82 82 75 Respiratory Rate 23 21 Blood Pressure Pulse Oximetry 100 99 98 Oxygen Delivery Method 07/31/24 19:00 07/31/24 19:30 07/31/24 19:30 Temperature Pulse Rate 75 Respiratory Rate 22 Blood Pressure 141/69 H 146/66 H Pulse Oximetry 98 Oxygen Delivery Method <Keith Mcclendon, DO - Last Filed: 07/31/24 20:23> Orders Ordered: Discontinued Medications Acetaminophen (Acetaminophen 325 Mg Tablet) 650 mg PO NOW ONE Stop: 07/31/24 16:14 Last Admin: 07/31/24 16:19 Dose: 650 mg Documented By: ROBERT Aspirin (Aspirin 81 Mg Chew Tab) 324 mg PO NOW ONE Stop: 07/31/24 15:39 Last Admin: 07/31/24 16:04 Dose: Not Given Documented By: ROBERT Cephalexin HCl (Cephalexin 250 Mg Capsule) 500 mg PO NOW ONE Stop: 07/31/24 20:16 Last Admin: 07/31/24 20:23 Dose: 500 mg Documented By: KEMI Magnesium Sulfate (Magnesium Sulfate) 2 gm in 50 mls @ 25 mls/hr IV NOW ONE Stop: 07/31/24 19:17 Last Infusion: 07/31/24 20:30 Dose: Infused Documented By: KEMI Co-signed By: ROBERT(2) Admin: 07/31/24 18:25 Dose: 25 mls/hr Documented By: ROBERT Co-signed By: MARC Vital Signs Vital signs: Vital Signs - 8 hr 07/31/24 15:33 07/31/24 15:54 07/31/24 16:00 Temperature 98.3 F Pulse Rate 85 82 90 Respiratory Rate 18 19 21 Blood Pressure 174/77 H Pulse Oximetry 99 Oxygen Delivery Method Room Air 07/31/24 16:03 07/31/24 16:03 07/31/24 16:30 Temperature Pulse Rate 83 87 Respiratory Rate 19 19 Blood Pressure 171/79 H Pulse Oximetry 95 100 Oxygen Delivery Method 07/31/24 16:36 07/31/24 16:36 07/31/24 17:00 Temperature Pulse Rate 84 Respiratory Rate 23 Blood Pressure 167/74 H 164/75 H Pulse Oximetry 97 Oxygen Delivery Method 07/31/24 17:00 07/31/24 17:30 07/31/24 17:30 Temperature Pulse Rate 80 79 Respiratory Rate 22 21 Blood Pressure 151/72 H Pulse Oximetry 99 98 Oxygen Delivery Method 07/31/24 18:02 07/31/24 18:30 07/31/24 19:00 Temperature Pulse Rate 82 82 75 Respiratory Rate 23 21 Blood Pressure Pulse Oximetry 100 99 98 Oxygen Delivery Method 07/31/24 19:00 07/31/24 19:30 07/31/24 19:30 Temperature Pulse Rate 75 Respiratory Rate 22 Blood Pressure 141/69 H 146/66 H Pulse Oximetry 98 Oxygen Delivery Method MDM - Chest Pain <Odette Severino, - Last Filed: 08/01/24 18:14> Lab Data 07/31/24 16:14 07/31/24 16:14 Labs: Lab Results 07/31/24 07/31/24 07/31/24 Range/Units 16:14 18:10 18:16 WBC 16.8 H (4.5-11.0) X10^3/uL RBC 3.51 L (4.0-5.2) X10^6/uL Hgb 9.3 L (12.0-16.0) g/dL Hct 28.9 L (36-46) % MCV 82.4 (80-100) fL MCH 26.5 (26-34) PG MCHC 32.1 (30-36) % RDW 15.3 H (11.6-14.8) % Plt Count 633 H (150-400) X10^3/uL Neut % (Auto) 78.6 H (50-75) % Lymph % (Auto) 13.9 L (25-40) % [place] % (Auto) 5.6 (3-14) % Eos % (Auto) 1.2 L (2-4) % Baso % (Auto) 0.7 (0-2) % Neut # (Auto) 45213 H (9044-4927) /uL Lymph # (Auto) 2300 (6942-0683) /uL [place] # (Auto) 900 (0-900) /uL Eos # (Auto) 200 (0-450) /uL Baso # (Auto) 100 (0-100) /uL PT 17.2 H (9.4-12.5) SECONDS INR 1.5 H (0.9-1.3) APTT 42 H (25.1-36.5) SECONDS Sodium 129 L (137-145) mmol/L Potassium 4.3 (3.4-5.1) mmol/L Chloride 95 L (98-107) mmol/L Carbon Dioxide 18 L (22-32) mmol/L BUN 13 (7-17) mg/dL Creatinine 0.76 (0.52-1.04) mg/dL Estimated GFR > 60 (>60) mL/min BUN/Creatinine Ratio 17.1 (6-22) Glucose 166 H (70-99) mg/dL Lactate 2.2 H (0.7-2.1) mmol/L Calcium 9.6 (8.4-10.2) mg/dL Magnesium 0.9 L* (1.6-2.3) mg/dL Total Bilirubin 0.7 (0.2-1.3) mg/dL AST 36 (14-36) IU/L ALT 22 (<35) IU/L Alkaline Phosphatase 156 H (38-126) U/L Total Creatine Kinase 29 L (30-135) U/L Troponin I < 0.012 < 0.012 (0.01-0.034) ng/mL NT-Pro-B Natriuret Pep 1990 H (<125) pg/mL Total Protein 8.6 H (6.3-8.2) g/dL Albumin 4.4 (3.5-5.0) g/dL Globulin 4.2 H (1.7-4.1) g/dL Albumin/Globulin Ratio 1.0 (1.0-2.8) Lipase 121 (23-300) U/L 07/31/24 Range/Units 18:46 WBC (4.5-11.0) X10^3/uL RBC (4.0-5.2) X10^6/uL Hgb (12.0-16.0) g/dL Hct (36-46) % MCV (80-100) fL MCH (26-34) PG MCHC (30-36) % RDW (11.6-14.8) % Plt Count (150-400) X10^3/uL Neut % (Auto) (50-75) % Lymph % (Auto) (25-40) % [place] % (Auto) (3-14) % Eos % (Auto) (2-4) % Baso % (Auto) (0-2) % Neut # (Auto) (5904-8232) /uL Lymph # (Auto) (2004-4527) /uL [place] # (Auto) (0-900) /uL Eos # (Auto) (0-450) /uL Baso # (Auto) (0-100) /uL PT (9.4-12.5) SECONDS INR (0.9-1.3) APTT (25.1-36.5) SECONDS Sodium (137-145) mmol/L Potassium (3.4-5.1) mmol/L Chloride (98-107) mmol/L Carbon Dioxide (22-32) mmol/L BUN (7-17) mg/dL Creatinine (0.52-1.04) mg/dL Estimated GFR (>60) mL/min BUN/Creatinine Ratio (6-22) Glucose (70-99) mg/dL Lactate 1.4 (0.7-2.1) mmol/L Calcium (8.4-10.2) mg/dL Magnesium (1.6-2.3) mg/dL Total Bilirubin (0.2-1.3) mg/dL AST (14-36) IU/L ALT (<35) IU/L Alkaline Phosphatase (38-126) U/L Total Creatine Kinase (30-135) U/L Troponin I (0.01-0.034) ng/mL NT-Pro-B Natriuret Pep (<125) pg/mL Total Protein (6.3-8.2) g/dL Albumin (3.5-5.0) g/dL Globulin (1.7-4.1) g/dL Albumin/Globulin Ratio (1.0-2.8) Lipase (23-300) U/L Imaging Data Chest x-ray: Radiologist's Impression: PROCEDURE: XR CHEST 1V INDICATIONS: Chest Pain TECHNIQUE: One view of the chest was acquired. COMPARISON: [facility], , XR CHEST 1V, 06/23/2024, 22:53. FINDINGS: Surgical changes and devices: None. Lungs and pleura: Lungs are clear. No pleural effusions or pneumothorax. Mediastinum: Mediastinal contours appear normal. Heart size is normal. Bones and chest wall: No suspicious bony lesions. Overlying soft tissues appear unremarkable. IMPRESSION: No acute cardiopulmonary abnormality is seen. Dictated by: Oscar Delcid M.D. on 07/31/2024 at 15:56 Extremity x-ray #1: Radiologist's Impression: PROCEDURE: XR WRIST RT MIN 3V INDICATIONS: pain and swelling, no known injury TECHNIQUE: 4 views of the wrist were acquired. COMPARISON: None. FINDINGS: Sensitivity is degraded from nonstandard positioning Bones: No fractures or dislocations. Chronic fracture of the ulnar styloid. Alignment of the carpal bones is not well evaluated secondary to patient positioning. No suspicious bony lesions. Mild osteoarthrosis of the base of the thumb. Soft tissues: No suspicious soft tissue calcifications. IMPRESSION: No acute bony abnormality. Dictated by: Oscar Delcid M.D. on 07/31/2024 at 15:54 ECG Data Attestation: I personally reviewed and interpreted this ECG as follows: Prior ECG tracings: available for review Interpretation: Normal sinus rhythm rate [address] depression and T-wave inversion in precordial leads with biphasic T-wave in V2 and V3 does look more pronounced today than it has previously she was no acute ST changes EKGs 2. MDM Narrative Medical decision making narrative: [facility] CC: Chest pain Complicating co-morbidities: Kidney transplant CAD atrial fibrillation on Eliquis hypertension Corroborating data: [ ] Data collected from: [facility] records, patient Medical records reviewed: records reviewed she was admitted on June 24 with pneumonia and colitis treated with azithromycin and Zosyn Differential considered: Acute coronary syndrome atrial fibrillation angina, gerd Exam documented above, pertinent findings include: Alert slightly pale 68-year-old female no acute off no fluid overload with peripheral edema Lab Test results independently reviewed as above. Pertinent findings: Troponin negative, BNP 1989 Magnesium critical 0.9 WBC at 16.8 hemoglobin 9.3 hematocrit 28.9 previously hemoglobin 9 0.2/20.4 this is stable platelets today are 633 previously 596 Sodium 129, which is stable, potassium 4.3 chloride 95 carbon dioxide 18 BUN 13 creatinine 0.76 Lactate 2.2 Bilirubin liver enzymes within normal limits Independently reviewed EKG as above Chronic ST depression and T-wave inversion more pronounced today but does appear similar Imaging studies independently reviewed: Chest x-ray no acute cardiopulmonary process Consultations: [ ] Treatments: Magnesium Re-evaluations: [ ] Discussion: Patient is 68-year-old female who has known CAD atrial fibrillation type 2 diabetes presenting today with some chest heaviness and pressure. This started at rest. She was chest pain-free here in the ED. Found to have hypo magnesium with a level of 0.9. EKGs does have ST depression T-wave inversions slightly more pronounced today. Initial troponin is negative. Currently receiving a magnesium rider awaiting repeat troponin Patient signed out to for further treatment and evaluation may require cardiology consultation Patient signed out to me at shift change pending final disposition by Dr. Severino. All vital signs nurse triage note medication list previous ER visits previous imaging modality and all EKGs reviewed. Heart score of 6-7 given aspirin here. Patient is completely pain-free at this point case discussed with Dr. Zuniga furniture delivery driver on-call who looked at her records she had a cardiac catheterization back in 2019 which showed a 20% blockage in 1 of the small obtuse branches off the circumflex that was non intervenable at that time. The cardiac clinic in [place] will give her a call for appointment and she will follow up with her PCP tomorrow. Differential diagnosis includes STEMI NSTEMI PE unstable angina anxiety and GERD. Return return with new or worsening symptoms. Patient will be discharged on magnesium oxide and also cephalexin for right hand cellulitis. <Keith Mcclendon, DO - Last Filed: 07/31/24 20:23> Lab Data Labs: Lab Results 07/31/24 07/31/24 07/31/24 Range/Units 16:14 18:10 18:16 WBC 16.8 H (4.5-11.0) X10^3/uL RBC 3.51 L (4.0-5.2) X10^6/uL Hgb 9.3 L (12.0-16.0) g/dL Hct 28.9 L (36-46) % MCV 82.4 (80-100) fL MCH 26.5 (26-34) PG MCHC 32.1 (30-36) % RDW 15.3 H (11.6-14.8) % Plt Count 633 H (150-400) X10^3/uL Neut % (Auto) 78.6 H (50-75) % Lymph % (Auto) 13.9 L (25-40) % [place] % (Auto) 5.6 (3-14) % Eos % (Auto) 1.2 L (2-4) % Baso % (Auto) 0.7 (0-2) % Neut # (Auto) 21241 H (5440-8186) /uL Lymph # (Auto) 2300 (5379-9480) /uL [place] # (Auto) 900 (0-900) /uL Eos # (Auto) 200 (0-450) /uL Baso # (Auto) 100 (0-100) /uL PT 17.2 H (9.4-12.5) SECONDS INR 1.5 H (0.9-1.3) APTT 42 H (25.1-36.5) SECONDS Sodium 129 L (137-145) mmol/L Potassium 4.3 (3.4-5.1) mmol/L Chloride 95 L (98-107) mmol/L Carbon Dioxide 18 L (22-32) mmol/L BUN 13 (7-17) mg/dL Creatinine 0.76 (0.52-1.04) mg/dL Estimated GFR > 60 (>60) mL/min BUN/Creatinine Ratio 17.1 (6-22) Glucose 166 H (70-99) mg/dL Lactate 2.2 H (0.7-2.1) mmol/L Calcium 9.6 (8.4-10.2) mg/dL Magnesium 0.9 L* (1.6-2.3) mg/dL Total Bilirubin 0.7 (0.2-1.3) mg/dL AST 36 (14-36) IU/L ALT 22 (<35) IU/L Alkaline Phosphatase 156 H (38-126) U/L Total Creatine Kinase 29 L (30-135) U/L Troponin I < 0.012 < 0.012 (0.01-0.034) ng/mL NT-Pro-B Natriuret Pep 1990 H (<125) pg/mL Total Protein 8.6 H (6.3-8.2) g/dL Albumin 4.4 (3.5-5.0) g/dL Globulin 4.2 H (1.7-4.1) g/dL Albumin/Globulin Ratio 1.0 (1.0-2.8) Lipase 121 (23-300) U/L /04/ Range/Units 18:46 WBC (4.5-11.0) X10^3/uL RBC (4.0-5.2) X10^6/uL Hgb (12.0-16.0) g/dL Hct (36-46) % MCV (80-100) fL MCH (26-34) PG MCHC (30-36) % RDW (11.6-14.8) % Plt Count (150-400) X10^3/uL Neut % (Auto) (50-75) % Lymph % (Auto) (25-40) % [place] % (Auto) (3-14) % Eos % (Auto) (2-4) % Baso % (Auto) (0-2) % Neut # (Auto) (8952-7717) /uL Lymph # (Auto) (9364-4297) /uL [place] # (Auto) (0-900) /uL Eos # (Auto) (0-450) /uL Baso # (Auto) (0-100) /uL PT (9.4-12.5) SECONDS INR (0.9-1.3) APTT (25.1-36.5) SECONDS Sodium (137-145) mmol/L Potassium (3.4-5.1) mmol/L Chloride (98-107) mmol/L Carbon Dioxide (22-32) mmol/L BUN (7-17) mg/dL Creatinine (0.52-1.04) mg/dL Estimated GFR (>60) mL/min BUN/Creatinine Ratio (6-22) Glucose (70-99) mg/dL Lactate 1.4 (0.7-2.1) mmol/L Calcium (8.4-10.2) mg/dL Magnesium (1.6-2.3) mg/dL Total Bilirubin (0.2-1.3) mg/dL AST (14-36) IU/L ALT (<35) IU/L Alkaline Phosphatase (38-126) U/L Total Creatine Kinase (30-135) U/L Troponin I (0.01-0.034) ng/mL NT-Pro-B Natriuret Pep (<125) pg/mL Total Protein (6.3-8.2) g/dL Albumin (3.5-5.0) g/dL Globulin (1.7-4.1) g/dL Albumin/Globulin Ratio (1.0-2.8) Lipase (23-300) U/L MDM Narrative Medical decision making narrative: [facility] CC: Chest pain Complicating co-morbidities: Kidney transplant CAD atrial fibrillation on Eliquis hypertension Corroborating data: [ ] Data collected from: Maggie jay jay records, patient Medical records reviewed: records reviewed she was admitted on June 24 with pneumonia and colitis treated with azithromycin and Zosyn Differential considered: Acute coronary syndrome atrial fibrillation angina Exam documented above, pertinent findings include: Alert slightly pale 68-year-old female no acute off no fluid overload with peripheral edema Lab Test results independently reviewed as above. Pertinent findings: Troponin negative, BNP 1989 Magnesium critical 0.9 WBC at 16.8 hemoglobin 9.3 hematocrit 28.9 previously hemoglobin 9 0.2/20.4 this is stable platelets today are 633 previously 596 Sodium 129, which is stable, potassium 4.3 chloride 95 carbon dioxide 18 BUN 13 creatinine 0.76 Lactate 2.2 Bilirubin liver enzymes within normal limits Independently reviewed EKG as above Chronic ST depression and T-wave inversion more pronounced today but does appear similar Imaging studies independently reviewed: Chest x-ray no acute cardiopulmonary process Consultations: [ ] Treatments: Magnesium Re-evaluations: [ ] Discussion: Patient is 68-year-old female who has known CAD atrial fibrillation type 2 diabetes presenting today with some chest heaviness and pressure. This started at rest. She was chest pain-free here in the ED. Found to have hypo magnesium with a level of 0.9. EKGs does have ST depression T-wave inversions slightly more pronounced today. Initial troponin is negative. Currently receiving a magnesium rider awaiting repeat troponin Patient signed out to for further treatment and evaluation may require cardiology consultation Patient signed out to me at shift change pending final disposition by Dr. Severino. All vital signs nurse triage note medication list previous ER visits previous imaging modality and all EKGs reviewed. Heart score of 6-7 given aspirin here. Patient is completely pain-free at this point case discussed with Dr. Zuniga furniture delivery driver on-call who looked at her records she had a cardiac catheterization back in 2019 which showed a 20% blockage in 1 of the small obtuse branches off the circumflex that was non intervenable at that time. The cardiac clinic in [place] will give her a call for appointment and she will follow up with her PCP tomorrow. Differential diagnosis includes STEMI NSTEMI PE unstable angina anxiety and GERD. Return return with new or worsening symptoms. Patient will be discharged on magnesium oxide and also cephalexin for right hand cellulitis. Discharge Plan Departure Patient Disposition: Home Clinical Impression: Hypomagnesemia, Cellulitis of hand Chest pain Qualifiers: Chest pain type: chest pain on breathing Qualified Code(s): R07.1 - Chest pain on breathing Instructions: DI for Chest Pain Activity Restrictions/Additional Instructions: Return with new or worsening symptoms. Take your medicines as prescribed including magnesium and antibiotic. Follow up with cardiology clinic in [place] who will call you for an appointment this week and also call PCP for appointment tomorrow. Prescriptions: New cephalexin 500 mg capsule 500 mg PO Q6H Qty: 28 0RF magnesium aspart,citrate,oxide 400 mg magnesium capsule 400 mg PO BID Qty: 4 0RF No Action tacrolimus [Prograf] 1 MG capsule 2 mg PO BID Qty: 0 mycophenolate mofetil [CellCept] 250 MG capsule 250 mg PO BID Qty: 0 multivitamin [Multiple Vitamins] 1 EACH tablet 1 tab PO QDAY Qty: 0 pravastatin 40 MG tablet 40 mg PO QPM Qty: 0 lisinopril 20 mg tablet 20 mg PO DAILY ethacrynic acid 25 mg tablet 25 mg PO DAILY pantoprazole 40 mg tablet,delayed release (DR/EC) 40 mg PO DAILY amlodipine 10 mg tablet 10 mg PO DAILY Qty: 30 0RF metformin 1,000 mg tablet 1,000 mg PO BID Qty: 60 0RF apixaban 2.5 mg tablet 5 mg PO BID ibandronate [Boniva] 150 mg tablet 150 mg PO QMONTH magnesium oxide 400 mg (241.3 mg magnesium) tablet 400 mg PO DAILY paroxetine HCl 10 mg tablet 10 mg PO DAILY sotalol 80 mg tablet 40 mg PO BID Stand Alone Forms: Patient Portal/API/Survey
[2024-07-31] MEDS: ACETAMINOPHEN 325 MG TABLET 650 MG PO (16:19)
--- NOTE | 2024-07-31 16:37 | PC.NURSE ---
right wrist pain and swelling days ago. chest pain that has since resolved.on eloquis. hx of kidney transplant.
[2024-07-31 16:39] LABS: Add Manual Diff / Slide Review NO; Basophils Absolute Auto 100 /uL (0-100); Basophils Percent Auto 0.7 % (0-2); Eosinophils Absolute Auto 200 /uL (0-450); Eosinophils Percent Auto 1.2 % (2-4); Hematocrit 28.9 % (36-46); Hemoglobin 9.3 g/dL (12.0-16.0); Lymphocytes Absolute Auto 2300 /uL (1100-4500); Lymphocytes Percent Auto 13.9 % (25-40); Mean Corpuscular HGB Conc 32.1 % (30-36); Mean Corpuscular Hemoglobin 26.5 PG (26-34); Mean Corpuscular Volume 82.4 fL (80-100); Monocytes Absolute Auto 900 /uL (0-900); Monocytes Percent Auto 5.6 % (3-14); Neutrophils Absolute Auto 13200 /uL (1500-7000); Neutrophils Percent Auto 78.6 % (50-75); Platelet Count 633 X10^3/uL (150-400); Red Blood Cell Count 3.51 X10^6/uL (4.0-5.2); Red Cell Distribution Width 15.3 % (11.6-14.8); White Blood Cell Count 16.8 X10^3/uL (4.5-11.0)
[2024-07-31 16:50] LABS: Alanine Aminotransferase 22 IU/L (<35); Albumin 4.4 g/dL (3.5-5.0); Alkaline Phosphatase 156 U/L (38-126); BUN Creatinine Ratio 17.1 (6-22); Bilirubin Total 0.7 mg/dL (0.2-1.3); Blood Urea Nitrogen 13 mg/dL (7-17); Calcium 9.6 mg/dL (8.4-10.2); Carbon Dioxide 18 mmol/L (22-32); Chloride 95 mmol/L (98-107); Creatine Kinase 29 U/L (30-135); Estimated Glomerular Filt Rate > 60 mL/min (>60); Globulin 4.2 g/dL (1.7-4.1); Glucose 166 mg/dL (70-99); Lipase 121 U/L (23-300); Magnesium 0.9 mg/dL (1.6-2.3); Sodium 129 mmol/L (137-145); Total Protein 8.6 g/dL (6.3-8.2)
[2024-07-31 16:52] LABS: Lactate (Lactic Acid) 2.2 mmol/L (0.7-2.1)
[2024-07-31 17:02] LABS: NT-proBNP (BNP-Adult 18+) 1990 pg/mL (<125); Troponin I < 0.012 ng/mL (0.01-0.034)
[2024-07-31 17:03] LABS: HEMOLYSIS 94 (0-50)
[2024-07-31 17:04] LABS: Aspartate Aminotransferase 36 IU/L (14-36); Potassium 4.3 mmol/L (3.4-5.1)
[2024-07-31 18:06] LABS: Reflexed Lactate in 2 Hours Y
[2024-07-31 18:25] LABS: INR 1.5 (0.9-1.3); Prothrombin Time 17.2 SECONDS (9.4-12.5)
[2024-07-31] MEDS: MAGNESIUM SULFATE 2 GM/50 ML PIGGYBACK IV (18:25)
[2024-07-31 18:28] LABS: PTT Partial Thromboplastin Tim 42 SECONDS (25.1-36.5)
--- NOTE | 2024-07-31 18:48 | EKG_ITS ---
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
--- NOTE | 2024-07-31 18:51 | EKG_ITS ---
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
[2024-07-31 19:20] LABS: Lactate 2HR (Lactic Acid Rflx) 1.4 mmol/L (0.7-2.1)
[2024-07-31 19:33] LABS: Troponin I < 0.012 ng/mL (0.01-0.034)
[2024-07-31] MEDS: cephALEXin 250 MG CAPSULE 500 MG PO (20:23)
== END 2024-07-31 20:40 | disposition home or self-care (01) ==
PROVIDERS: Emergency Medicine; Emergency Provider Family Medicine
DX: L03.113 Cellulitis of right upper limb (principal); R07.1 Chest pain on breathing; E83.42 Hypomagnesemia; Z94.0 Kidney transplant status; I48.91 Unspecified atrial fibrillation; Z79.01 Long term (current) use of anticoagulants; I25.10 Atherosclerotic heart disease of native coronary artery without angina pectoris; I25.2 Old myocardial infarction
CPT/HCPCS: 36415; 71045; 73110; 80053; 82550; 83605; 83690; 83735; 83880; 84484; 85025; 85610; 85730; 93005; 93010; 96365; 96366; 99284; J3475